=== PATIENT | male | born 1950 | race Caucasian/White ===

== ENCOUNTER → 2017-03-26 | Outpatient (CLI) | payer OTHER, MEDICARE ==
[~2017-03-26] MED LIST: AMPH20TA2 PO; CHOL1CAP57 PO; CLC100X PO; DILT40TA2 PO; FENOFIBRATE PO; GLUC10007 PO; HYDR25TA4 PO; LEVO-217 PO; LISI40TA PO; LURA1TAB PO; OMEG10007 PO; OXYC1TAB3 PO; POLY335019 PO; [UNRECOGNIZED DRUG - CODE] PO
== END | disposition home or self-care (01) ==
LOC: C.RDSM 15:26
PROVIDERS: ATTEND Orthopaedic Surgery
DX: M75.101 Unspecified rotator cuff tear or rupture of right shoulder, not specified as traumatic (principal)

== ENCOUNTER → 2017-04-02 | Outpatient (CLI) | payer OTHER, MEDICARE ==
--- NOTE | 2017-04-02 11:15 | DIAGNOSTIC IMAGING REPORT ---
R UPPER EXT JOINT WITHOUT CLINICAL HISTORY: ROTATOR CUFF TEAR TECHNIQUE: Multi axial acquisition COMPARISON STUDY: None FINDINGS: Considerable degenerative changes throughout. Moderate edematous change of the subscapularis muscle and tendinous complex. Small associated hematoma. Moderate tendinopathy. Infraspinatus tendinopathy. Probable partial tear infraspinatus tendon. Full-thickness tear supraspinatus tendon with musculotendinous retraction of 2.7 cm. Degenerative change] potential partial chronic separation of the acromioclavicular joint. Significant degenerative change of the articular services the glenohumeral joint. Moderate degenerative substance change with service maceration of the glenoid labrum. Small joint effusion. IMPRESSION: 1. Full-thickness tear supraspinatus tendon with musculotendinous retraction at 2.7 cm. 2. Tendinopathy of the infraspinatus and subscapularis tendons with evidence for moderate muscular edema at both sites. 3. Partial thickness tear superior margin infraspinatus tendon. 4. Mild soft tissue edema of the biceps tendon although that structure is grossly intact. 5. Generalized degenerative change articular services of the glenohumeral joint 6. Grade 1 chronic separation right acromioclavicular joint. The above report was generated using voice recognition software. It may contain grammatical, syntax or spelling errors. Electronically signed by: Anshu Mojica M.D. 04/02/2017 11:13 AM Dictated Date/Time: 04/02/2017 11:05 AM
== END | disposition home or self-care (01) ==
LOC: C.MRI 09:50
PROVIDERS: ATTEND Orthopaedic Surgery
DX: M75.101 Unspecified rotator cuff tear or rupture of right shoulder, not specified as traumatic (principal); S43.101A Unspecified dislocation of right acromioclavicular joint, initial encounter; X58.XXXA Exposure to other specified factors, initial encounter; M25.811 Other specified joint disorders, right shoulder

== ENCOUNTER 2017-06-16 19:41 | Emergency (ER) | payer OTHER, MEDICARE ==
[~2017-06-16] VITALS: Ht 180.3 cm; Wt 95.6 kg
[~2017-06-16 19:41] MED LIST changes: +B-COTAB18 PO; -CHOL1CAP57 PO; -CLC100X PO; +CLZ100 PO; +DILT360C24 PO; -DILT40TA2 PO; -FENOFIBRATE PO; -GLUC10007 PO; -HYDR25TA4 PO; -LEVO-217 PO; +LEVO75TA5 PO; +LORA-741 PO; -LURA1TAB PO; +LURA1TAB3 PO; +MOML PO; +MULT-506 PO; -OMEG10007 PO; -OXYC1TAB3 PO; -[UNRECOGNIZED DRUG - CODE] PO
[2017-06-16 19:45] VITALS: TEMP 36.8; Ht 180.3 cm; Wt 95.6 kg
--- NOTE | 2017-06-16 20:34 | EMERGENCY ROOM VISIT NOTE ---
History Report prepared by Norma: Usha Yanez Under the Supervision of: Dr. Romero Guillen D.O. First contact with patient: 20:00 Chief Complaint: GI ASSESSMENT Stated Complaint: BLACK STOOL AFTER COLONOSCOPY Nursing Triage Summary: Patient reports recent colonoscopy, told to come to ER if black stool. Patient reports black stool. History of Present Illness The patient is a 67 year old male who presents to the Emergency Room with complaints of persistent black stools starting earlier today. The patient had a colonoscopy 6 hours ago. He had a polyp removed. He had a bowel movement after returning home which appeared black. He states the stool did not smell like a normal bowel movement and smells more "medicinal". He was warned to watch for black stools. He feels fatigued from being up all night preparing for the colonoscopy. He is feeling well otherwise. Source of History: patient Onset: earlier today Position: other (global) Quality: other (black stools) Timing: other (persistent) Associated Symptoms: + fatigue Review of Systems See HPI for pertinent positives & negatives. A total of 10 systems reviewed and were otherwise negative. Past Medical & Surgical Medical Problems: (1) Anemia (2) Benign hypertension (3) Depression (4) Manic-Depressive Nos (5) Schizoaffective Disorder, Unspecified Family History Cancer Social History Smoking Status: Former Smoker Alcohol Use: none Marital Status: Housing Status: lives with family Occupation Status: unemployed Current/Historical Medications Scheduled Amphetamine-Dextroamphetamine 20MG (Adderall 20MG), 20 MG PO QAM B-Complex Vitamins (Vitamin B Complex), 1 TAB PO DAILY Clozapine (Clozapine), 0.5 TAB PO HS Diltiazem Hcl Extended Release (Diltiazem Hcl), 1 CAP PO QAM Levothyroxine Sodium (Levothyroxine Sodium), 1 TAB PO QAM Lisinopril (Zestril), 40 MG PO QAM Lurasidone Hcl (Latuda), 1 TAB PO HS Multivitamin (Multivitamin), 1 TAB PO DAILY Polyethylene Glycol 3350 (Miralax), 1 DOSE PO BID Scheduled PRN Lorazepam (Ativan), 0.5-1 MG PO HS PRN for Sleep Magnesium Hydroxide (Milk Of Magnesia), 30 ML PO HS PRN for Constipation Allergies Coded Allergies: Penicillins (Verified Allergy, Unknown, UNKNOWN REACTION - HAPPENED A CHILD, 06/16/17) Physical Exam Vital Signs Date Time Temp Pulse Resp B/P (MAP) Pulse Ox O2 Delivery O2 Flow Rate FiO2 06/16/17 20:39 89 16 168/96 97 06/16/17 19:45 36.8 90 16 177/102 96 Room Air Physical Exam CONSTITUTIONAL/VITAL SIGNS: Reviewed / noted above. GENERAL: Non-toxic in appearance. INTEGUMENTARY: Warm, dry, and [place]. HEAD: Normocephalic. EYES: without scleral icterus or trauma. ENT/OROPHARYNX: clear and moist. LYMPHADENOPATHY/NECK: Is supple without lymphadenopathy or meningismus. RESPIRATORY: Lungs clear and equal. CARDIOVASCULAR: Regular rate and rhythm. GI/ABDOMEN: Soft and nontender. No organomegaly or pulsatile mass. No rebound or guarding. Normal bowel sounds. Stool sample was dark brown and guaiac positive. EXTREMITIES: Warm and well perfused. BACK: No CVA tenderness. NEUROLOGICAL: Intact without focal deficits. PSYCHIATRIC: normal affect. MUSCULOSKELETAL: Normally developed with good muscle tone. Medical Decision & Procedures ED Course 2008: Previous medical records were reviewed. The patient was evaluated in room C7. A complete history and physical examination was performed. 2035: On reevaluation, the patient is resting comfortably. I discussed the results and findings with the patient. He verbalized agreement of the treatment plan. He was discharged home. Medical Decision Differential diagnosis: Etiologies such as diverticulosis, AVM, coagulopathy, colitis, inflammatory bowel disease, malignancy, Sheila-Malik tear, esophagitis, peptic ulcer disease , variceal bleed, gastritis, epistaxis, fissure, hemorrhoids, as well as others were entertained. This is a 67-year-old male who presents to the ED with a chief complaint of some dark liquid like stools. The patient had a colonoscopy earlier today around 2 PM. He states that tonight he had some black looking liquid like stools and came to the ED for evaluation of this. He was concerned about bleeding. The patient denies any other symptoms. Denies lightheadedness, dizziness or weakness. His physical exam was unremarkable. He didn't have some liquid stool during his ED stay. It was a small amount and it was dark brown in color. It is guaiac positive. The patient does report that he did have several polyps removed during his colonoscopy. This is likely the cause of his guaiac positive status. There is no gross blood on exam and therefore it is unlikely that he has any significant bleeding. The patient's blood work revealed a near normal hemoglobin. He is felt to be stable for discharge. Medication Reconcilliation Current Medication List: was personally reviewed by me Blood Pressure Screening Patient's blood pressure: Elevated blood pressure Blood pressure disposition: Referred to PCP Impression Primary Impression: Guaiac positive stools Additional Impression: H/O colonoscopy with polypectomy Scribe Attestation The scribe's documentation has been prepared under my direction and personally reviewed by me in its entirety. I confirm that the note above accurately reflects all work, treatment, procedures, and medical decision making performed by me. Departure Information Dispostion Home / Self-Care Referrals Sung Gilbert M.D. (PCP) Patient Instructions My [facility] Additional Instructions Contact your doctor if your symptoms worsen. Contact your doctor if you develop red blood upon bowel movement. Return for any concerns. Problem Qualifiers
[2017-06-16 20:39] VITALS: BP 168/96; PULSE 89; O2SAT 97
== END 2017-06-16 20:41 | disposition home or self-care (01) ==
LOC: C.EDB 19:43 → C.EDC 20:41
DX: R19.5 Other fecal abnormalities (principal); Z86.010 Personal history of colon polyps; I10 Essential (primary) hypertension; F32.9 Major depressive disorder, single episode, unspecified; F20.9 Schizophrenia, unspecified; D64.9 Anemia, unspecified; Z87.891 Personal history of nicotine dependence; Z79.899 Other long term (current) drug therapy; Z88.0 Allergy status to penicillin; Z80.9 Family history of malignant neoplasm, unspecified

== ENCOUNTER → 2017-06-28 | Day surgery (SDC) | payer OTHER, MEDICARE ==
[2017-06-08 09:28] VITALS: Ht 180.3 cm; Wt 90.9 kg
[~2017-06-28] VITALS: Ht 180.3 cm; Wt 90.9 kg
[~2017-06-28] MED LIST changes: +ATROPINE SULFATE 0.1 MG/ML 5ML SYR IV PRN; +CLINDAMYCIN 900MG IV SCH; +CLINDAMYCIN IV 900 MG in DEXTROSE 5% 50ML IV SCH; +DEXAMETHASONE SOD INJ 4 MG/ML VIAL ONE; +EpHEDrine SULFATE INJ 50 MG/ML AMP IV PRN; +EpINEphrine HCL INJ 1 MG/ML 5ML SYRINGE ONE; +FENTANYL CITRATE INJ 50 MCG/1 ML 2 ML VIAL IV PRN; +FENTANYL CITRATE INJ 50 MCG/1 ML 2 ML VIAL ONE; +GLYCOPYRROLATE INJ 0.2 MG/ML VIAL ONE; +LACTATED RINGER'S 1000ML 1,000 ML IV SCH; +LIDOCAINE HCL 2% 2 ML VIAL (20MG/ML) ONE; +METOCLOPRAMIDE HCL INJ 5 MG/ML 2 ML VIAL IV PRN; +MIDAZOLAM HCL 1 MG/ML 2ML VIAL ONE; +MoRPHine SULFATE 2 MG/ML CARP IV PRN; +MoRPHine SULFATE 4 MG/ML 1 ML CARP\\VIAL IV PRN; +NEOSTIGMINE METHYLSULFATE 5 MG/5 ML SYR ONE; +ONDANSETRON INJ 2 MG/ML 2 ML VIAL IV PRN; +ONDANSETRON INJ 2 MG/ML 2 ML VIAL ONE; +OXYCODONE/ACETAMINOPHEN 5-325 TAB PO PRN; +PROPOFOL IV EMULSION 10 MG/ML 20 ML VIAL IV ONE; +ROPIVACAINE 0.5% 5 MG/ML 30 ML VIAL ONE; +SODIUM CHLORIDE 0.9% 1000ML 1,000 ML IV SCH
--- NOTE | 2017-06-28 09:32 | History & Physical Bridge - [place] ---
H&P Re-Evaluation Bridge Note: I have examined the patient, reviewed the History & Physical and in the interval since the performance of the History & Physical I have noted the following changes of clinical significance: Patient placed on antibiotics 1 week ago for tooth abscess. Not experiencing any fevers/chills/malaise in the past several days. No other changes noted
--- NOTE | 2017-06-28 12:59 | [facility] Post Operative Brief Note ---
Immediate Operative Summary Operative Date Jun 28, 2017. Pre-Operative Diagnosis Right Shoulder Massive Rotator Cuff Tear, subacromial spur Post-Operative Diagnosis same and glenohumeral joint synovitis, biceps tendon tear Procedure(s) Performed Right Shoulder Arthoscopic Rotator Cuff Repair, Biceps Tenotomy, Sub Acromial Decompression, Synovectomy Surgeon Dr. Sagar Taylor Insurance Verify Rep Surgeon(s) Jose Real PA-C Estimated Blood Loss 25CC Findings Consistent with Post-Op Diagnosis Fluids (cc crystalloids) 1500 cc Specimens none Drains None Anesthesia Type General Regional Complication(s) none Disposition Accompanied Pt To Recover: no Disposition: Recovery Room / PACU
--- NOTE | 2017-06-28 13:17 | [facility] Operative Report ---
Operative Report Operative Date Jun 28, 2017. Pre-Operative Diagnosis Right Shoulder Massive Rotator Cuff Tear, subacromial spur Post-Operative Diagnosis same and glenohumeral joint synovitis, biceps tendon tear Procedure(s) Performed Right Shoulder Arthoscopic Rotator Cuff Repair, Biceps Tenotomy, Sub Acromial Decompression, Synovectomy Surgeon Dr. Sagar Taylor Director Of Vocational Guidance Surgeon(s) Jose Real PA-C Estimated Blood Loss 25CC Findings significant right rotator cuff tear Fluids (cc crystalloids) 1500 cc Specimens none Complication(s) None Disposition Recovery Room / PACU I attest to the content of the Intraoperative Record and any orders documented therein. Any exceptions are noted below.
--- NOTE | 2017-06-28 13:24 | Discharge Instructions ---
Discharge Instructions Date of Service Jun 28, 2017. Admission Reason for Admission: Right Shoulder Massive Rotator Cuff Tear Discharge Discharge Diagnosis / Problem: Right shoulder massive rotator cuff tear Discharge Goals Goal(s): Decrease discomfort, Improve function, Increase independence Activity Recommendations Activity Limitations: as noted below Lifting Limitations: until after follow-up appointment Exercise/Sports Limitations: until after follow-up appointment May Resume Sexual Activity: after follow-up appointment Shower/Bathe: tomorrow, keep incision dry Driving or Machine Use: No driving until cleared by orthopedic surgeon Weightbearing Status: Right non-weightbearing (with Right arm) . Instructions / Follow-Up Instructions / Follow-Up Post-operative Instructions Dear Patient and Family/Friends, Before you are discharged from the hospital, it is important to know what to expect when you get home after surgery. To that end, we have created this sheet of discharge instructions which covers many commonly asked questions. Make sure you go through this sheet in its entirety with your nurse before you are discharged. Please note that we will go over the specifics of your surgery and recovery when you return for your first post-operative visit. Sincerely, Dr. Butler Pain Expect to be in a fair amount of pain after surgery. Remember, our goal is not to eliminate your pain, but to make it tolerable. It is a good idea to stay ahead of your pain by taking the medications you were prescribed once you get home. Typically, the pain starts improving 3-7 days after surgery. You should start weaning off the narcotic pain medication (oxycodone, hydrocodone, hydromorphone, morphine) as soon as your pain improves. Please call our office if your pain is not adequately controlled. Ice Ice your operative site at least 5 times a day for 15-30 minutes at a time. Make sure you have a thin cloth between the ice or cooling unit and your skin to prevent esposito bite. This is especially important if you received a nerve block. Continue icing your operative site for the first 5-7 days after surgery , then as needed. Diet/Nausea/Vomiting Start by drinking clear liquids and eating crackers. If you can tolerate this, then you may resume your normal diet. If you feel nauseated or vomit, take Zofran/ondansetron (if prescribed). Please call our office if you have intractable nausea or vomiting, or, if after hours, you may go to the Emergency Room for help. Constipation Constipation is a common side effect of narcotic pain medication. If you have not had a bowel movement within 2 days after surgery, we recommend purchasing an over the counter laxative such as Milk of Magnesia, Dulcolax, or Miralax from a local pharmacy, and taking it as instructed. Call our clinic if any questions. Slings and Braces If you were placed in a sling or brace, it must be worn at all times, including sleep. You may remove your sling or brace for physical therapy, home exercises , and showering. The length of time you will be in your brace and range of motion restrictions depends on what surgery you had; these details will be reviewed at your first post-operative appointment. Nerve block The anesthesia team sometimes places a nerve block to help with post-operative pain control. This results in significant numbness and inability to move the extremity. The nerve block usually wears off in 8-12 hours, but sometimes can last up to 24 hours. Please call our office if you are still unable to move your extremity after 24 hours, unless you received a pain pump to take home. Nerve blocks typically wear off quickly, so start taking pain medication as soon as you start feeling soreness near your surgical site. Weight bearing and Range of Motion. Do not bear any weight through your operative extremity immediately after surgery. If you had upper extremity surgery, do not lift anything with that arm. If you are in a knee brace, keep it locked in place until your follow-up. We will discuss your weight bearing, range of motion, and lifting restrictions in detail at your first post-operative appointment. Continuous Passive Motion (CPM) Machine If you were prescribed a CPM machine, it will start after your first post- operative appointment, at which time we will give you instructions on the range of motion settings and duration of treatment Physical therapy You will be given a prescription for physical therapy or occupational therapy at your first post-operative appointment. Typically, patients start therapy within 1 week of surgery Wound care and showering We will inspect your wound at your first post-operative visit, and may do a dressing change at that time. Most patients will be in a water-proof dressing that is removed 14 days after surgery. It is normal to see some dried blood on the dressing. Do not remove your dressing, paper strips or sutures yourself unless you are given permission. Showering is allowed the day after surgery. Do not scrub or remove any dressings. The wound should not be submerged underwater (i.e. in a bathtub or pool) until 4 weeks after surgery TATE stockings If you were given white stockings, these are to be worn at all times except to shower (on both legs) for the first 2 weeks after surgery. Driving You may not drive while taking narcotic pain medication or while in a cast, splint, sling or brace. You, the patient, need to make the final determination about when you are safe to drive, however, the earliest you may consider driving after surgery is below: Hand/Wrist/Elbow Surgery: 3 days Shoulder Surgery: 2 weeks Hip,/Knee/Ankle Surgery: 4 weeks Fracture repair: 6 weeks Return to Work Your return to work depends on what surgery was done and what type of work you do. Please bring any paperwork your employer needs completed to your first post -operative visit. Also, bring a description of your job duties, as this helps us to understand what risks you may face at work. Travel Avoid long distance travel (greater than 1 hour) in airplanes and cars for the first 6 weeks after surgery. If you must travel, you need to have a Doppler ultrasound done before you travel to rule out a blood clot in your legs. Follow-up You should have a follow-up appointment already scheduled 1-2 days after surgery. If not, please contact our office to make this appointment before you leave the hospital. When to call the office It is normal to have swelling and bruising in the limb that was operated on. This will improve with time. It is also normal to have fevers for the first 2 days after surgery. Reasons you should call your doctor include: Uncontrolled pain; Nausea, vomiting, or constipation that does not improve with medication; Fevers over 101.5, chills, sweats; Drainage or bleeding from the wound; Foul odor; Spreading areas of redness; Any other concerns Current Hospital Diet Patient's current hospital diet: Discharge Diet Recommended Diet: Regular Diet Procedures Procedures Performed: Right Shoulder Arthoscopic Rotator Cuff Repair, Biceps Tenotomy, Sub Acromial Decompression, Synovectomy Pending Studies Studies pending at discharge: no Medical Emergencies . Who to Call and When: Medical Emergencies: If at any time you feel your situation is an emergency, please call 911 immediately. . Non-Emergent Contact Non-Emergency issues call your: Primary Care Provider Call Non-Emergent contact if: you have a fever, temperature is above 101.5, your pain is not controlled, your pain is worsening, wound has increased drainage, you have any medication questions . "Provider Documentation" section prepared by Jose Real. . VTE Core Measure Inpt VTE Proph given/why not?: Other Anticoagulation (Aspirin EC 81 mg), Pat Sidhu [place] Drug Monitoring Program Search Results: patient reviewed within database, no issues identified, see additional documentation
--- NOTE | 2017-06-28 14:01 | OPERATIVE REPORT ---
DATE OF OPERATION: 06/28/2017 PREOPERATIVE DIAGNOSES: Right shoulder massive rotator cuff tear and subacromial spur. 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 OPERATIONS PERFORMED: 1. Right shoulder arthroscopic rotator cuff repair. This involved 2 tendons and was severely retracted. So, a 22 modifier should be added for increased difficulty of the surgical procedure. 2. Right shoulder biceps tenotomy. 3. Right shoulder synovectomy. 4. Right shoulder subacromial decompression. SURGEON: Morgan Butler MD ELECTRONIC DEVELOPMENT TECHNICIAN: Jose Real PA-C IV FLUIDS: 1800 mL crystalloid. ESTIMATED BLOOD LOSS: 25 mL. URINE OUTPUT: Not recorded. SPECIMENS: None. COMPLICATIONS: None. IMPLANTS: 1. Two Arthrex corkscrew anchors, one 4.5 mm in diameter and the other one 5.5 mm. 2. Two Arthrex self-punching SwiveLock anchors. 3. One additional number 2 fiberwire and number 2 tigerwire INDICATIONS: Mr. Dobson is a 67-year-old gentleman with a medical history of bipolar disorder, who had an injury to his shoulder this summer, resulting in difficulty getting his arm over his head. He has a positive Hornblower's sign on exam with external rotation lag and minimal strength in external rotation. MRI and x-rays were obtained. He has cephalad migration of the humeral head, narrowing of his acromiohumeral interval with a massive rotator cuff tear, retracted to the level of the glenoid. Additionally, there is fatty infiltration of both the supraspinatus and infraspinatus Goutallier grade 2-3. We initially attempted conservative management with physical therapy; however, this was unsuccessful in relieving his symptoms. I told him that I was not sure, this tear was repairable and we therefore consented him for a superior capsular reconstruction versus rotator cuff repair. After reviewing all the risks and benefits of surgery, he elected to proceed. All questions were answered. Informed consent was signed. OPERATIVE FINDINGS: 1. The articular cartilage of the glenoid and humeral head showed grade 3 chondromalacia throughout. 2. The labrum showed degenerative fraying, but no tasneem detachment. 3. The biceps tendon showed a tear involving approximately 20% of its thickness. 4. The subscapularis showed some mild fraying, but no detachment. 5. The anterior interval showed intense red synovitis, which extended into the superior capsule and subacromial space as well. 6. The rotator cuff showed tears of the supraspinatus and infraspinatus in a L-shaped manner with the long part of the L extending into the interval between the infra and supraspinatus. 7. There was a large anterior subacromial spur. Synovectomy was performed of the anterior interval. A biceps tenotomy was performed. The subacromial spur was resected. The rotator cuff footprint was medialized to allow for a tension-less repair. The rotator cuff was repaired using a margin convergence sutures between the infra and supraspinatus as well as a double-row suture anchor repair. DESCRIPTION OF OPERATION: The patient was identified in the preoperative holding area, where his surgical site was marked. He was given interscalene block by anesthesia and brought back to the main operating room, where he was placed on the operating room table and general anesthesia was administered. He was moved into the lateral decubitus position. Axillary roll was placed. All bony prominences were padded. Perioperative antibiotics were administered. He was prepped and draped in the normal sterile fashion. Prior to incision, a multidisciplinary timeout was called. All in the room were in agreement. We began by suspending the arm in 10 pounds of longitudinal traction with the arm abducted 35 degrees and forward flexed 25 degrees. A posterior viewing portal was created. An anterior working portal was created under direct visualization. Diagnostic arthroscopy was then performed revealing the above findings. Once the diagnostic arthroscopy was complete, the electrocautery wand was introduced through the anterior portal and was used to debride the synovitis in the anterior aspect of the shoulder. We visualized the subscapularis tendon and deemed it to be intact. There was, however, tearing of the biceps tendon. Therefore, the basket punch was introduced through the anterior working cannula and the biceps was cut flush with the level of the superior labrum. Next, the arthroscope was placed in the subacromial space. A significant amount of bursitis was encountered, which was resected. The undersurface of the acromion was exposed with electrocautery. There was a large anteriorly and laterally based subacromial spur. This was resected with a barrel bur. The cuff was then carefully inspected. There was significant retraction of the supraspinatus, and moderate infraspinatus retraction. Manipulating the tear with a kingfisher, it was found to have a L-shaped tear with the long side of the L extending towards the scapular spine between the supra and infraspinatus. It was somewhat difficult to get it over to the footprint, but with medializing the footprint, we would be able to get the tendon attached to the bone. I felt it was in the patient's best interest to attempt a rotator cuff repair as opposed to a superior capsular reconstruction. Therefore, the rotator cuff footprint was debrided with a curette and shaver. Two margin convergence sutures were placed using one #2 FiberWire and one #2 TigerWire respectively. Once these were tied, a 4.5 corkscrew was placed on the anterior-medial aspect of the footprint. These were passed in a horizontal mattress fashion through the supraspinatus tendon. We then placed a 5.5 anchor on the posterior medial aspect of the footprint. This was also a double-loaded anchor. The first set of sutures was passed, one on each side of the supra and the infraspinatus. The second set was placed posteriorly into the infraspinatus. The sutures were then tied down from posterior to anteriorly. The sutures were then crisscrossed with a Tigerwire and Fiberwire from each anchor and placed into two self-punching SwiveLock anchors laterally to complete our double row repair. We were able to get good coverage of the footprint in this manner. At this point, final arthroscopic images were obtained. The patient's portals were closed with inverted 3-0 Monocryl sutures. Steri-Strips were applied followed by sterile dressings. The patient was then extubated and transferred to the recovery room in stable condition. POSTOPERATIVE COURSE: The patient will be discharged home from the recovery room. He will follow up in my clinic tomorrow to review his postoperative restrictions and start physical therapy on the massive rotator cuff repair protocol. He will be on aspirin for DVT prophylaxis. I attest to the content of the Intraoperative Record and any orders documented therein. Any exceptions are noted below. CARMEN
[2017-06-28 14:32] VITALS: BP 125/72; PULSE 71; O2SAT 95
--- NOTE | 2017-06-28 14:40 | Anesthesia Progress Nt - [facility] ---
Anesthesia Post Op Note Date & Time Jun 28, 2017 at 14:40 Vital Signs Pain Intensity: 0 Vital Signs Past 12 Hours Date Time Temp Pulse Resp B/P (MAP) Pulse Ox O2 Delivery O2 Flow Rate FiO2 06/28/17 14:32 71 18 125/72 (89) 95 Room Air 06/28/17 13:54 36.2 67 18 113/69 (84) 95 Room Air 06/28/17 13:51 67 16 98 06/28/17 13:51 68 16 06/28/17 13:50 111/59 06/28/17 13:46 69 28 06/28/17 13:46 69 28 95 06/28/17 13:45 115/72 06/28/17 13:41 70 25 06/28/17 13:41 36.4 96 Room Air 06/28/17 13:41 70 25 97 06/28/17 13:40 110/65 06/28/17 13:36 70 24 98 06/28/17 13:36 70 24 06/28/17 13:35 115/61 06/28/17 13:33 73 21 06/28/17 13:33 74 21 97 06/28/17 13:30 114/66 06/28/17 13:28 78 14 06/28/17 13:28 77 14 98 06/28/17 13:27 76 20 06/28/17 13:27 76 20 96 06/28/17 13:25 116/65 06/28/17 13:22 83 13 99 06/28/17 13:22 83 13 06/28/17 13:20 122/62 06/28/17 13:18 137/78 06/28/17 13:17 36.2 91 16 137/78 98 Mask 10 06/28/17 10:01 72 100 06/28/17 10:01 72 06/28/17 10:00 150/91 06/28/17 09:56 70 12 100 06/28/17 09:56 70 06/28/17 09:55 139/89 06/28/17 09:52 74 18 100 06/28/17 09:52 74 06/28/17 09:50 155/101 06/28/17 09:48 160/98 06/28/17 09:47 75 100 06/28/17 09:47 75 06/28/17 09:45 159/122 1/29/18 09:42 77 16 169/108 100 06/28/17 09:42 70 06/28/17 09:27 74 06/28/17 09:22 65 06/28/17 09:17 77 06/28/17 09:12 75 0 06/28/17 09:07 73 06/28/17 09:02 72 06/28/17 08:57 72 06/28/17 08:52 77 06/28/17 08:25 36.5 81 18 160/105 (123) 99 Room Air 06/28/17 08:23 160/105 Notes Mental Status: alert / awake / arousable, participated in evaluation Pt Amnestic to Procedure: Yes Nausea / Vomiting: adequately controlled Pain: adequately controlled Airway Patency, RR, SpO2: stable & adequate BP & HR: stable & adequate Hydration State: stable & adequate Anesthetic Complications: no major complications apparent
== END | disposition home or self-care (01) ==
LOC: X.SURG 08:13
PROVIDERS: ATTEND Orthopaedic Surgery
DX: S46.011A Strain of muscle(s) and tendon(s) of the rotator cuff of right shoulder, initial encounter (principal); S46.211A Strain of muscle, fascia and tendon of other parts of biceps, right arm, initial encounter; M75.91 Shoulder lesion, unspecified, right shoulder; M94.28 Chondromalacia, other site; M65.811 Other synovitis and tenosynovitis, right shoulder; X58.XXXA Exposure to other specified factors, initial encounter; J44.9 Chronic obstructive pulmonary disease, unspecified; E03.9 Hypothyroidism, unspecified; I10 Essential (primary) hypertension; E78.5 Hyperlipidemia, unspecified; F41.9 Anxiety disorder, unspecified; Z88.0 Allergy status to penicillin; Z98.890 Other specified postprocedural states; Z98.818 Other dental procedure status; Z87.891 Personal history of nicotine dependence; Z79.899 Other long term (current) drug therapy

== ENCOUNTER 2017-07-10 12:51 | Emergency (ER) | payer OTHER, MEDICARE ==
[~2017-07-10] VITALS: Ht 180.3 cm; Wt 92.2 kg
[~2017-07-10 12:51] MED LIST changes: -ATROPINE SULFATE 0.1 MG/ML 5ML SYR IV PRN; -CLINDAMYCIN 900MG IV SCH; -CLINDAMYCIN IV 900 MG in DEXTROSE 5% 50ML IV SCH; -DEXAMETHASONE SOD INJ 4 MG/ML VIAL ONE; -EpHEDrine SULFATE INJ 50 MG/ML AMP IV PRN; -EpINEphrine HCL INJ 1 MG/ML 5ML SYRINGE ONE; -FENTANYL CITRATE INJ 50 MCG/1 ML 2 ML VIAL IV PRN; -FENTANYL CITRATE INJ 50 MCG/1 ML 2 ML VIAL ONE; -GLYCOPYRROLATE INJ 0.2 MG/ML VIAL ONE; -LACTATED RINGER'S 1000ML 1,000 ML IV SCH; -LIDOCAINE HCL 2% 2 ML VIAL (20MG/ML) ONE; -METOCLOPRAMIDE HCL INJ 5 MG/ML 2 ML VIAL IV PRN; -MIDAZOLAM HCL 1 MG/ML 2ML VIAL ONE; -MoRPHine SULFATE 2 MG/ML CARP IV PRN; -MoRPHine SULFATE 4 MG/ML 1 ML CARP\\VIAL IV PRN; -NEOSTIGMINE METHYLSULFATE 5 MG/5 ML SYR ONE; -ONDANSETRON INJ 2 MG/ML 2 ML VIAL IV PRN; -ONDANSETRON INJ 2 MG/ML 2 ML VIAL ONE; -OXYCODONE/ACETAMINOPHEN 5-325 TAB PO PRN; -PROPOFOL IV EMULSION 10 MG/ML 20 ML VIAL IV ONE; -ROPIVACAINE 0.5% 5 MG/ML 30 ML VIAL ONE; -SODIUM CHLORIDE 0.9% 1000ML 1,000 ML IV SCH
[2017-07-10 12:59] VITALS: TEMP 36.6; Ht 180.3 cm; Wt 92.2 kg
--- NOTE | 2017-07-10 14:11 | DIAGNOSTIC IMAGING REPORT ---
L KNEE 3 VIEWS CLINICAL HISTORY: 67 years-old Male presenting with left knee pain, fall. TECHNIQUE: Frontal, lateral, and sunrise views of the left knee were obtained. COMPARISON: None. FINDINGS: No acute fracture or malalignment. Osteophytosis most prominent in the patellofemoral and lateral compartments. Chondrocalcinosis may be present. Joint space is largely preserved. Moderate knee joint effusion. Significant prepatellar soft tissue swelling. Lateral facet joint space loss at the patella. Minimal lateral patellar subluxation. IMPRESSION: 1. Degenerative changes characteristic of osteoarthritis primarily in the patellofemoral and lateral compartments. Significant joint space loss in the lateral facet of the patellofemoral articulation. 2. No acute osseous injury. 3. Marked prepatellar soft tissue swelling likely indicates contusion. 4. Moderate knee joint effusion. Electronically signed by: Morgan Cormier M.D. 07/10/2017 2:09 PM Dictated Date/Time: 07/10/2017 2:07 PM
--- NOTE | 2017-07-10 14:24 | EMERGENCY ROOM VISIT NOTE ---
History First contact with patient: 13:06 Chief Complaint: FALL Stated Complaint: INJURED R KNEE/SHOULDER History of Present Illness The patient is a 67 year old male who presents to the Emergency Room with complaints of a left knee injury after a fall. The patient reports that he had his right rotator cuff repaired recently. He states that he has been frustrated because he is having difficulty doing his exercises. He took a walk outside last night to help calm himself down. He states that he was unable to tie his shoes due to the shoulder brace. He tripped and fell off his snow- covered stairs, landing directly onto his left knee. He did not hit his head or the right shoulder. He does report that when he was doing his shoulder exercises today, his shoulder felt slightly more stiff than usual. He denies any new numbness or weakness. He does have some loss of sensation tingling in bilateral lower extremities due to neuropathy. He rates his discomfort a 2/10 and states that he has been walking around normally. Review of Systems A complete 6 point review of systems was reviewed with the patient with pertinent positives and negatives as per history of present illness. All else were negative. Past Medical/Surgical History Medical Problems: (1) Anemia (2) Benign hypertension (3) Depression (4) Manic-Depressive Nos (5) Schizoaffective Disorder, Unspecified Family History Cancer Social History Smoking Status: Never Smoker Alcohol Use: none Marital Status: Housing Status: lives with family Occupation Status: unemployed Current/Historical Medications Scheduled Amphetamine-Dextroamphetamine 20MG (Adderall 20MG), 20 MG PO QAM B-Complex Vitamins (Vitamin B Complex), 1 TAB PO DAILY Clozapine (Clozapine), 0.5 TAB PO HS Diltiazem Hcl Extended Release (Diltiazem Hcl), 1 CAP PO QAM Levothyroxine Sodium (Levothyroxine Sodium), 1 TAB PO QAM Lisinopril (Zestril), 40 MG PO QAM Lurasidone Hcl (Latuda), 1 TAB PO HS Multivitamin (Multivitamin), 1 TAB PO DAILY Polyethylene Glycol 3350 (Miralax), 17 GM PO BID Scheduled PRN Lorazepam (Ativan), 0.5-1 MG PO HS PRN for Sleep Magnesium Hydroxide (Milk Of Magnesia), 30 ML PO HS PRN for Constipation Physical Exam Vital Signs Date Time Temp Pulse Resp B/P (MAP) Pulse Ox O2 Delivery O2 Flow Rate FiO2 07/10/17 14:44 77 20 146/89 100 07/10/17 12:59 36.6 91 20 151/107 99 Room Air Physical Exam VITALS: Vitals are noted on the nurse's note and reviewed by myself. Vital signs stable. GENERAL: This is a 67-year-old male, in no acute distress, nondiaphoretic, well- developed well-nourished. SKIN: There are 3 small, well-healing surgical incisions to the anterior right shoulder consistent with recent laparoscopic surgery. HEART: Regular rate and rhythm without murmurs gallops or rubs. LUNGS: Clear to auscultation bilaterally without wheezes, rales or rhonchi. MUSCULOSKELETAL: There is moderate soft tissue swelling overlying the left anterior knee with mild ecchymosis. There is tenderness to palpation over the anterior knee. Full range of motion of the knee. Dorsalis pedis pulse 2+. NEURO: Patient was alert and oriented to person place and time. Normal sensation. Medical Decision & Procedures ER Provider Diagnostic Interpretation: L KNEE 3 VIEWS FINDINGS: No acute fracture or malalignment. Osteophytosis most prominent in the patellofemoral and lateral compartments. Chondrocalcinosis may be present. Joint space is largely preserved. Moderate knee joint effusion. Significant prepatellar soft tissue swelling. Lateral facet joint space loss at the patella. Minimal lateral patellar subluxation. IMPRESSION: 1. Degenerative changes characteristic of osteoarthritis primarily in the patellofemoral and lateral compartments. Significant joint space loss in the lateral facet of the patellofemoral articulation. 2. No acute osseous injury. 3. Marked prepatellar soft tissue swelling likely indicates contusion. 4. Moderate knee joint effusion. Medical Decision Differential diagnosis includes fracture, contusion, dislocation, sprain, among others. The patient was evaluated as above. X-ray of the left knee was obtained and reviewed by myself and read by radiology and showed no acute fractures. Patient was placed in an Rashel wrap. He declined any crutches or walker. The right shoulder appears to be healing well. He does report some slight stiffness in the shoulder, but was advised to follow-up with his orthopedist regarding this. He verbalized understanding of my assessment and treatment plan and was discharged home in good condition. The patient was independently evaluated by Dr. Monreal, ED attending physician, who agreed with my assessment and treatment plan. Medication Reconcilliation Current Medication List: was personally reviewed by me Blood Pressure Screening Patient's blood pressure: Elevated blood pressure Blood pressure disposition: Elevated BP felt to be situational Impression Primary Impression: Contusion of left knee Departure Information Dispostion Home / Self-Care Condition GOOD Referrals Sung Gilbert M.D. (PCP) Patient Instructions My [facility] Additional Instructions You have been treated in the Emergency Department for a knee injury. For pain control, you can use the following [id number] medicines (if >12 yo): - Regular strength (325mg/tab) Tylenol (acetaminophen) 2 tabs every 4-6 hours as needed. Do not exceed 12 tablets in a 24 hour period. Avoid taking more than 4 grams (4000 mg) of Tylenol per day. This includes any other sources of acetaminophen you may take on a regular basis. - Regular strength (200 mg/tab) Advil (ibuprofen) 1-2 tabs every 4-6 hours as needed. Do not exceed a dose of 3200 mg per day. If this is a recent injury (<24 hrs), ice can be applied to the area of pain for the first 3 days to help decrease pain and inflammation. Ice massages can be performed by freezing water in a paper cup, peeling back the cup to expose the ice and then massaging over the affected area. Elevate the need to reduce swelling. Follow-up with your established orthopedic physician. Return to the Emergency Department if your current symptoms worsen despite treatment course outlined above. Problem Qualifiers Primary Impression: Contusion of left knee Encounter type: initial encounter Qualified Codes: S80.02XA - Contusion of left knee, initial encounter
[2017-07-10 14:44] VITALS: BP 146/89; PULSE 77; O2SAT 100
--- NOTE | 2017-07-10 15:38 | EMERGENCY ROOM VISIT NOTE ---
ED Visit Note First contact with patient: 13:26 The patient was seen and examined with Megan. I agree with the history, physical and findings. Please see the note for disposition and details.
== END 2017-07-10 14:44 | disposition home or self-care (01) ==
LOC: C.EDB 12:54 → C.EDD 14:44
DX: S80.02XA Contusion of left knee, initial encounter (principal); W10.9XXA Fall (on) (from) unspecified stairs and steps, initial encounter; Y92.018 Other place in single-family (private) house as the place of occurrence of the external cause; D64.9 Anemia, unspecified; I10 Essential (primary) hypertension; F32.9 Major depressive disorder, single episode, unspecified; F25.9 Schizoaffective disorder, unspecified; Z80.9 Family history of malignant neoplasm, unspecified; Z79.899 Other long term (current) drug therapy

== ENCOUNTER → 2017-08-11 | Outpatient (CLI) | payer OTHER, MEDICARE | END | disposition home or self-care (01) | LOC: C.RDSM 10:55 | PROVIDERS: ATTEND Orthopaedic Surgery | DX: Z98.890 Other specified postprocedural states (principal) ==

== ENCOUNTER → 2017-09-24 | Outpatient (CLI) | payer OTHER, MEDICARE | END | disposition home or self-care (01) | LOC: C.LABSPEC 16:44 | PROVIDERS: ATTEND Podiatrist Primary Podiatric Medicine | DX: B35.1 Tinea unguium (principal) ==

== ENCOUNTER → 2017-10-12 | Outpatient (CLI) | payer OTHER, MEDICARE | END | disposition home or self-care (01) | LOC: C.RDSM 09:10 | PROVIDERS: ATTEND Orthopaedic Surgery | DX: M25.511 Pain in right shoulder (principal); Z98.890 Other specified postprocedural states ==

== ENCOUNTER 2019-01-31 05:43 | Inpatient (IN) ==
--- NOTE | 2019-01-25 16:34 | PAT Medication Instructions ---
Medication Instructions Date of Service January 25, 2019 Home Medications aspirin 81 mg PO QAM clozapine 25 mg PO HS clozapine 50 mg PO HS diltiazem HCl 360 mg PO QAM ibuprofen 400 mg PO TID levothyroxine 75 mcg PO QAM lisinopril 20 mg PO QAM lorazepam 1 mg PO TID PRN lurasidone [Latuda] 80 mg PO HS multivitamin 1 tab PO QAM polyethylene glycol 3350 34 g PO BID vitamin B complex 1 tab PO QAM glucos sul [id number] [Glucosamine Chondroitin] 550 cap PO BID ASK your surgeon for instructions ibuprofen 400 mg PO TID ASK your prescriber and surgeon aspirin 81 mg PO QAM ibuprofen 400 mg PO TID STOP taking 2 weeks before surgery (or as soon as possible if surgery is within 2 weeks) glucos sul [id number] [Glucosamine Chondroitin] 550 cap PO BID DO NOT take the morning of surgery lisinopril 20 mg PO QAM multivitamin 1 tab PO QAM polyethylene glycol 3350 34 g PO BID vitamin B complex 1 tab PO QAM Take morning of surgery With a small sip of water, OTHERWISE NOTHING TO EAT OR DRINK AFTER MIDNIGHT: diltiazem HCl 360 mg PO QAM levothyroxine 75 mcg PO QAM lorazepam 1 mg PO TID PRN (if needed) Take evening before surgery clozapine 25 mg PO HS clozapine 50 mg PO HS lorazepam 1 mg PO TID PRN (if needed) lurasidone [Latuda] 80 mg PO HS polyethylene glycol 3350 34 g PO BID Other Notes If you have any questions please call us at [phone] or [phone] or [phone] or [phone]
--- NOTE | 2019-01-26 10:22 | Anesthesiology Consultation ---
Date of Service January 26, 2019 Assessment & Plan (1) Encounter for pre-operative examination: ASA instructions per surgeon/prescriber. Chart Review Chart Review: Acceptable Risk for Surgery (pending surgeon-ordered PCP clearance (Dr. Terry)) and Patient seen in Pre Admission Testing Teaching & Discussion Pre-Anesthesia Teaching/Discussion Notes: Instructed NPO after midnight before surgery,except medications with 15 cc of water. Medication instructions provided according to the PAT guidelines. History Surgery Operation Date: 01/31/19 07:30 Proposed Procedures p Left Laparoscopic Hand-Assisted Nephrectomy - Freeman Sampson MD Height/Weight Height: 5 ft 11 in Weight: 80 kg Allergies Allergy/AdvReac Type Severity Reaction Status Date / Time Penicillins Allergy Unknown UNKNOWN Verified 01/25/19 15:28 REACTION - HAPPENED A CHILD Medications Home Medications Medication Instructions Recorded Confirmed Last Taken aspirin 81 mg PO QAM 12/17/18 01/25/19 01/16/19 clozapine 25 mg PO HS 12/17/18 01/25/19 01/15/19 clozapine 50 mg PO HS 12/17/18 01/25/19 01/15/19 diltiazem HCl 360 mg PO QAM 12/17/18 01/25/19 01/16/19 ibuprofen 400 mg PO TID 12/17/18 01/25/19 01/16/19 levothyroxine 75 mcg PO QAM 12/17/18 01/25/19 01/16/19 lisinopril 20 mg PO QAM 12/17/18 01/25/19 01/16/19 lorazepam 1 mg PO TID PRN 12/17/18 01/25/19 01/16/19 lurasidone [Latuda] 80 mg PO HS 12/17/18 01/25/19 01/15/19 multivitamin 1 tab PO QAM 12/17/18 01/25/19 01/16/19 polyethylene glycol 3350 34 g PO BID 12/17/18 01/25/19 01/16/19 vitamin B complex 1 tab PO QAM 12/17/18 01/25/19 01/16/19 glucos sul [id number]-C-Mn 550 cap PO BID 01/25/19 01/25/19 Unknown [Glucosamine Chondroitin] Past Medical History Medical History Anxiety BPH (benign prostatic hyperplasia) Bipolar disorder Chronic obstructive pulmonary disease controlled Depression Hyperlipidemia HX OF Hypertension Hypothyroidism Kidney tumor LEFT Osteoarthritis Peripheral neuropathy Exercise / Class Metabolic Activity II 4-5 Yardwork/Stairs/Walk up hill Past Family History Family History Other No significant family history Past Surgical History Surgical History H/O prostate biopsy History of bronchoscopy History of colonoscopy History of herniorrhaphy INGUINAL History of tooth extraction Past Anesthesia History No Hx of Anesthesia Complications and No Family Hx of Anesthesia Complications History of PONV No Hx of PONV and No Hx of Motion Sickness Social History Smoking Status: Former smoker tobacco type: cigarettes Do You Dip or Chew Tobacco: No Smoking End Date: QUIT 22+ YEARS AGO Hx Alcohol Use: Yes Alcohol type: wine alcohol intake frequency: a few times a month Hx Substance Use: No substance use type: does not use Review of Systems Patient denies chest pain, shortness of breath, dyspnea on exertion, cough, wheezing, palpitations. Physical Exam Vital Signs VITALS BP 120/80 P 99 TEMP 98.2 SP02 98%RA RESP 16 PHYSICAL Full neck and c-spine range of motion. Full TMJ range of motion. TMD 3 finger breaths Mallampati Score 2 Dentition: full upper dentures, several missing on lower sides/molars Lungs: clear throughout to auscultation Cardiac: regular rate and rhythm, no murmurs noted Spine: normal Carotid arteries: negative bruit Extremities: no edema Large tongue Testing Laboratory Results Urine Color Yellow 01/26/19 Unknown Urine Appearance Clear (Clear) 01/26/19 Unknown Urine pH 7.0 (4.5-7.5) 01/26/19 Unknown Ur Specific Rosie 1.009 (1.000-1.030) 01/26/19 Unknown Urine Protein Negative (Negative) 01/26/19 Unknown Urine Glucose (UA) Negative (Negative) 01/26/19 Unknown Urine Ketones Negative (Negative) 01/26/19 Unknown Urine Nitrite Negative (Negative) 01/26/19 Unknown Ur Leukocyte Esterase Negative (Negative) 01/26/19 Unknown Blood Type O Positive 01/26/19 10:34 Antibody Screen NEGATIVE 01/26/19 10:34 01/16/19 WBC 7.82 H/H 14.1/40.5 PLATELETS 170 SODIUM 141 POTASSIUM 3.9 CHLORIDE 108 CO2 25 BUN 14 CREATININE 0.96 GLUCOSE 90 Electrocardiogram Date: 01/04/19 NSR at 76bpm. Possible LAE. RBBB. Chest X-Ray Date: 01/04/19 Findings: + NAD Other Testing Chest CT: 01/25/19: A 2 mm indeterminate pulmonary nodule within the left lung apex. Statistically, this is likely benign. However, this bears watching on future examinations (report sent to PCP). Otherwise, no convincing evidence for metastatic disease within the chest. A 1.5 cm right thyroid nodule. Trace pericardial effusion.
[2019-01-26 11:53] LABS: Appearance Urine Clear (Clear); Bilirubin Urine Negative (Negative); Blood Urine Negative (Negative); Color Urine Yellow; Glucose Urine UA Negative (Negative); Ketones Urine Negative (Negative); Leukocyte Esterase Urine Negative (Negative); Nitrite Urine Negative (Negative); Protein Urine Negative (Negative); Specific Gravity Urine 1.009 (1.000-1.030); Urobilinogen Urine Negative (Negative)
[2019-01-31] MEDS ORDERED: CLINDAMYCIN 900 MG / 50ML D5W IV SCH (06:00)
[2019-01-31] MEDS ORDERED: LR 15ML/HR IV SCH (06:00)
[2019-01-31] MEDS ORDERED: fentaNYL citrate 100 MCG/2 ML VIAL ONE ×2 (06:58→08:35)
[2019-01-31] MEDS ORDERED: MIDAZOLAM HCL 1 MG/ML 2ML VIAL ONE (06:58)
[2019-01-31] MEDS ORDERED: PROMETHAZINE HCL 12.5 MG in SODIUM CHLORIDE 0.9% 50 ML IV PRN (07:10)
[2019-01-31] MEDS ORDERED: METOCLOPRAMIDE HCL INJ 5 MG/ML 2 ML VIAL IV PRN (07:10)
[2019-01-31] MEDS ORDERED: ATROPINE SULFATE 0.1 MG/ML 10ML SYR IV PRN (07:10)
[2019-01-31] MEDS ORDERED: ONDANSETRON INJ 2 MG/ML 2 ML VIAL IV PRN ×2 (07:10→10:56)
[2019-01-31] MEDS ORDERED: HYDROmorphone INJ 2 MG/ML SYR/VIAL IV PRN (07:10)
[2019-01-31] MEDS ORDERED: ePHEDrine sulfate 50 MG/ML AMP IV PRN (07:10)
[2019-01-31] MEDS ORDERED: fentaNYL citrate 100 MCG/2 ML VIAL IV PRN (07:10)
--- NOTE | 2019-01-31 07:14 | History & Physical Bridge Note ---
Date of Service January 31, 2019 History & Physical Bridge Note I have examined the patient, reviewed the History & Physical and in the interval since the performance of the History & Physical I have noted the following changes of clinical significance: no changes noted
[2019-01-31] MEDS ORDERED: BUPIVACAINE 0.5 % 5 MG/1 ML MPF 30ML VIAL ONE (07:22)
[2019-01-31] MEDS ORDERED: ONDANSETRON INJ 2 MG/ML 2 ML VIAL ONE (08:37)
[2019-01-31] MEDS ORDERED: ePHEDrine sulfate 50 MG/ML SYR ONE (08:37)
[2019-01-31] MEDS ORDERED: GLYCOPYRROLATE 0.2 MG/ML VIAL ONE (08:37)
[2019-01-31] MEDS ORDERED: PHENYLEPHRINE HCL 10 MG/ML VIAL ONE (08:37)
[2019-01-31] MEDS ORDERED: ROCURONIUM BROMIDE 10 MG/ML 5 ML VIAL ONE (08:37)
[2019-01-31] MEDS ORDERED: DEXAMETHASONE SOD INJ 4 MG/ML VIAL ONE (08:37)
[2019-01-31] MEDS ORDERED: NEOSTIGMINE METHYLSULFATE 5 MG/5 ML SYR ONE (08:37)
[2019-01-31] MEDS ORDERED: LARYING-O-JET KIT (LTA) ONE (08:37)
[2019-01-31] MEDS ORDERED: LIDOCAINE HCL 2% 2 ML VIAL/AMP(20MG/ML) INFIL ONE (08:37)
[2019-01-31] MEDS ORDERED: PROPOFOL IV EMULSION 10 MG/ML 20 ML VIAL IV ONE (08:37)
[2019-01-31] MEDS ORDERED: PHENYLEPHRINE 100MCG/ML 5ML SYR ONE (08:37)
[2019-01-31] MEDS ORDERED: ACETAMINOPHEN 1000 MG/100 ML IV IV ONE (09:14)
--- NOTE | 2019-01-31 09:36 | Operative Report ---
Post Operative Report Pre & Post Diagnosis Operation Date: 01/31/19 07:30 Pre-Op Diagnosis: Left Renal Mass Post-Op Diagnosis: Left Renal Mass Procedure Operation Date: 01/31/19 07:30 Actual Procedures p Left Laparoscopic Hand-Assisted Nephrectomy(Left) - Freeman Sampson MD Surgeon Avinash Sampson MD Monument Stonecutter Shireen Falcon Estimated Blood Loss 25 Findings Consistent with Post-Op Diagnosis Specimens left kidney Description of Procedure Patient was identified in the preoperative holding area, appropriate informed consents reviewed and completed and the patient was transported to the operating suite. Upon arrival he received appropriate preoperative antibiotics in the form of clindamycin and general anesthesia. He was placed in a [id number] left side up lateral decubitus position with the bed flexedshe was padded and braced appropriately. To begin the case, left lower quadrant Yan style incision was madecarefully dissecting through the levels of the oblique musculature before identifying the peritoneum and sharply incising it. A finger sweep was performed to confirm no adhesive disease in the area of our incision before expanding this incision to accommodate a hand port before insufflating the abdomen we utilize this incision to incise the white line of Toldt lateral to the kidney. I began mobilizing the colon off of the lower two thirds of the kidney as well as an area below the kidney. I then placed 2-12 mm surgical assistant certified ports the rectus border, 1- 3 cm below the costal margin and the other approximately 8 cm below that. Both of these were placed on to my hand. I then insufflated the abdomen continued my mobilization of the colon. Of note, the splenic flexure was somewhat adherent and was able to mobilize it and incised these adhesions freeing the colon medializing it. Fortunately, these adhesions also help the spleen cephalad and out of our field. After exposing the entire anterior surface of the kidney including Gerota's fascia, I turned to the lower pole of the kidney and identified the gonadal vein. Following the anterior surface of the gonadal vein I encountered the lower aspect of the left renal vein I created a window just lateral to the gonadal vein and just inferior to the renal vein and passed a finger behind the kidney. Psoas muscle was clear at this area and I was able to elevate the kidney. Passing a finger behind the hilum I was able to palpate the renal artery which was immediately posterior and superior to the vein. I carefully dissected a window superior to the artery and lateral to the adrenal vein and I was able to visualize my finger in this window. I then passed a stapling device and control the hilum and a single staple load. A second staple load was utilized to separate the medial aspect of the adrenal gland in the upper pole of the kidney. We then carefully completed the dissection around the kidney by utilizing the harmonic scalpel. The inferior pole of Gerota's fascia was dissected entirely utilizing the harmonic scalpel until only the ureter remained. This was controlled with clips superior and inferior and then divided with the harmonic between. This entirely mobilized the specimen which was extracted through the hand port. We then reinsufflated and inspected for hemostasis which was excellent. I gently push the colon back to the left lateral aspect of the abdomen and draped omentum over the entire surgical site. Lap incisions were closed with a [id number] 0 Vicryl. Main incision was closed in several layers, first utilizing 0 Vicryl to reapproximate the peritoneum followed by closure of the internal and then out external oblique utilizing 0 Vicryl. All incisions were closed with 4-0 Monocryl, infiltrated with half percent Marcaine and closed superficially with Dermabond. Patient was subsequently extubated and taken to the PACU in stable condition. There were no complications. Shireen Falcon was present and assisting throughout, from incision to closure. I attest to the content of the Intraoperative Record and any orders documented therein. Any exceptions are noted below.
--- NOTE | 2019-01-31 10:14 | Anesthesiology Progress Note ---
Date of Service January 31, 2019 Anesthesia Post Procedure Vital Signs Vital Signs: Temp Pulse Pulse Resp BP Pulse Ox 01/31/19 10:00 64 14 121/69 99 01/31/19 09:50 57 L 14 116/67 100 01/31/19 09:40 61 14 118/68 100 01/31/19 09:30 36.1 C L 64 14 106/60 99 01/31/19 06:20 36.5 C 94 H 20 165/100 H 99 Transfer of Care Handoff Completed per policy Notes Mental Status: alert / awake / arousable and participated in evaluation Patient Amnestic to Procedure: Yes Nausea / Vomiting: adequately controlled Pain: adequately controlled Airway Patency, RR, SpO2: stable & adequate BP & HR: stable & adequate Hydration State: stable & adequate Anesthetic Complications: no major complications apparent
[2019-01-31 10:40] LABS: BUN Creatinine Ratio 12.1 (10-20); Calcium 8.9 mg/dl (8.5-10.1); Creatinine Clr Calc Pharmacy 62.4 ml/min; Est GFR (African American) 73.1; Potassium 4.5 mmol/L (3.5-5.1)
[2019-01-31] MEDS ORDERED: OXYCODONE HCL IR 5 MG TAB (IMMEDIATE RELEASE) PO PRN (10:56)
[2019-01-31] MEDS ORDERED: MoRPHine SULFATE 4 MG/ML 1 ML CARP\\VIAL IV PRN (10:56)
[2019-01-31 11:06] LABS: Basophils # (auto) 0.03 K/uL (0-0.2); Basophils % (auto) 0.3 %; Eosinophils # (auto) 0.02 K/uL (0-0.5); Eosinophils % (auto) 0.2 %; Hematocrit (blood only) 37.6 % (42-52); Hemoglobin 12.9 g/dL (14.0-18.0); Immature Granulocytes # (auto) 0.05 K/uL (0.00-0.02); Immature Granulocytes % (auto) 0.4 %; Lymphocytes # (auto) 0.69 K/uL (1.2-3.4); Lymphocytes % (auto) 5.9 %; Mean Corpuscular Hgb Conc 34.3 g/dL (32-36); Mean Corpuscular Volume 87.4 fL (80-100); Monocytes # (auto) 0.41 K/uL (0.11-0.59); Monocytes % (auto) 3.5 %; Neutrophils # (auto) 10.59 K/uL (1.4-6.5); Neutrophils % (auto) 89.7 %; Platelet Count 153 K/uL (130-400); RDW Coefficient of Variation 12.7 % (11.5-14.5); White Blood Count 11.79 K/uL (4.8-10.8)
[2019-01-31] MEDS: LORazepam 1 MG TAB PO PRN ×2 (12:11→20:36)
[2019-01-31] MEDS: LACTATED RINGER'S 1,000 ML IV SCH ×2 (12:12→21:31)
[2019-01-31] MEDS: FAMOTIDINE 20 MG in SYRINGE 3 ML IV SCH ×2 (12:18→20:36)
[2019-01-31] MEDS: CLINDAMYCIN 900 MG in DEXTROSE 5% 50 ML IV SCH ×2 (14:28→22:06)
[2019-01-31] MEDS: LISINOPRIL 20 MG TAB PO SCH (16:21)
[2019-01-31] MEDS: ACETAMINOPHEN 1,000 MG/100 ML VIAL IV PRN (18:11)
[2019-01-31] MEDS ORDERED: HEPARIN SOD 5,000 UNIT/0.5 ML VIAL SQ ONE (19:00)
[2019-01-31] MEDS: POLYETHYLENE (MIRALAX) 17 GM PACK PO SCH (19:10)
[2019-01-31] MEDS: LURASIDONE HCL 40 MG TAB PO SCH (20:32)
[2019-01-31] MEDS: cloZAPine 25 MG TAB PO SCH ×2 (20:32)
[2019-01-31] MEDS: OXYCODONE HCL IR 5 MG TAB (IMMEDIATE RELEASE) PO PRN (21:20)
[2019-02-01] MEDS: LEVOTHYROXINE SODIUM 75 MCG TABLET PO SCH (05:30)
[2019-02-01] MEDS: LACTATED RINGER'S 1,000 ML IV SCH ×3 (05:30→20:47)
[2019-02-01] MEDS: OXYCODONE HCL IR 5 MG TAB (IMMEDIATE RELEASE) PO PRN ×3 (06:25→18:07)
[2019-02-01] MEDS: CLINDAMYCIN 900 MG in DEXTROSE 5% 50 ML IV SCH (06:25)
[2019-02-01 06:27] LABS: Basophils # (auto) 0.01 K/uL (0-0.2); Basophils % (auto) 0.1 %; Hematocrit (blood only) 37.8 % (42-52); Immature Granulocytes # (auto) 0.03 K/uL (0.00-0.02); Immature Granulocytes % (auto) 0.2 %; Lymphocytes # (auto) 0.75 K/uL (1.2-3.4); Lymphocytes % (auto) 5.8 %; Mean Corpuscular Hemoglobin 30.1 pg (25-34); Mean Corpuscular Hgb Conc 34.4 g/dL (32-36); Mean Corpuscular Volume 87.5 fL (80-100); Mean Platelet Volume 10.2 fL (7.4-10.4); Monocytes # (auto) 1.18 K/uL (0.11-0.59); Monocytes % (auto) 9.1 %; Neutrophils # (auto) 11.01 K/uL (1.4-6.5); Neutrophils % (auto) 84.8 %; Platelet Count 169 K/uL (130-400); RDW Coefficient of Variation 12.8 % (11.5-14.5); RDW Standard Deviation 41.5 fL (36.4-46.3); Red Blood Count 4.32 M/uL (4.7-6.1); White Blood Count 12.98 K/uL (4.8-10.8)
[2019-02-01 07:07] LABS: BUN Creatinine Ratio 10.3 (10-20); Calcium 8.8 mg/dl (8.5-10.1); Creatinine Clr Calc Pharmacy 56.6 ml/min; Est GFR (Non-African American) 56.1; Potassium 4.4 mmol/L (3.5-5.1)
--- NOTE | 2019-02-01 08:20 | Anesthesiology Progress Note ---
Date of Service February 01, 2019 Anesthesia Post Procedure Vital Signs Vital Signs: Temp Pulse Pulse Resp BP BP Pulse Ox 02/01/19 08:00 36.7 C 82 18 176/100 H 99 02/01/19 07:24 02/01/19 03:24 36.9 C 79 16 159/87 H 97 01/31/19 23:33 37.1 C 86 16 137/86 99 01/31/19 20:33 36.9 C 78 16 164/95 H 99 01/31/19 15:40 36.8 C 82 20 150/82 H 99 01/31/19 13:45 36.9 C 83 16 146/78 H 98 01/31/19 12:45 74 16 149/71 H 100 01/31/19 11:45 36.5 C 75 16 135/77 100 01/31/19 11:19 36.6 C 66 18 131/80 99 01/31/19 11:15 36.6 C 83 16 127/86 99 01/31/19 10:10 36.1 C L 61 14 117/71 98 01/31/19 10:00 64 14 121/69 99 01/31/19 09:50 57 L 14 116/67 100 01/31/19 09:40 61 14 118/68 100 01/31/19 09:30 36.1 C L 64 14 106/60 99 Pulse Ox 02/01/19 08:00 02/01/19 07:24 97 02/01/19 03:24 01/31/19 23:33 01/31/19 20:33 01/31/19 15:40 01/31/19 13:45 01/31/19 12:45 01/31/19 11:45 01/31/19 11:19 01/31/19 11:15 01/31/19 10:10 01/31/19 10:00 01/31/19 09:50 01/31/19 09:40 01/31/19 09:30 Pain Intensity Abdomen: Pain Intensity: 3 Notes Mental Status: alert / awake / arousable Patient Amnestic to Procedure: Yes Nausea / Vomiting: adequately controlled Pain: adequately controlled Airway Patency, RR, SpO2: stable & adequate BP & HR: stable & adequate Hydration State: stable & adequate Anesthetic Complications: no major complications apparent
[2019-02-01] MEDS: MULTIVITAMIN TAB PO SCH (08:21)
[2019-02-01] MEDS: FAMOTIDINE 20 MG in SYRINGE 3 ML IV SCH (08:21)
[2019-02-01] MEDS: dilTIAZem HCL 180 MG CAPCR PO SCH (08:21)
[2019-02-01] MEDS: HEPARIN SOD 5,000 UNIT/0.5 ML VIAL SQ SCH ×2 (08:23→20:41)
[2019-02-01] MEDS: LISINOPRIL 20 MG TAB PO SCH (09:07)
[2019-02-01] MEDS: POLYETHYLENE (MIRALAX) 17 GM PACK PO SCH ×2 (09:07→20:41)
--- NOTE | 2019-02-01 09:12 | Urology Progress Note ---
Date of Service February 01, 2019 Assessment & Plan (1) Renal mass: Postop day #1 status post left radical nephrectomy Progressing appropriately Continue ambulation DC Reddy Advance diet Possible DC home this afternoon or tomorrow Subjective Patient progressed extremely well overnight He was ambulatory Tolerating clear liquids Minimal pain Labs stable Physical Exam Physical Exam: Incisions appropriateno erythema, no bruising, minimal tenderness Reddy in placeclear Results & Data Vital Signs (Past 12 Hours) Vital Signs Temp Pulse Pulse Resp BP Pulse Ox Pulse Ox 02/01/19 08:00 36.7 C 82 18 176/100 H 99 02/01/19 07:24 97 02/01/19 03:24 36.9 C 79 16 159/87 H 97 01/31/19 23:33 37.1 C 86 16 137/86 99 PG Care Time/CCT Total # of Minutes Spent Total Time Spent with Patient: Total time spent is greater than 50% in coordination of care (as documented) at patient's floor/unit and/or counseling patient:
[2019-02-01] MEDS ORDERED: METOPROLOL TARTRATE 25 MG TAB PO STA (11:56)
[2019-02-01] MEDS ORDERED: Nursing to Pharmacy Communication ONE (12:45)
[2019-02-01] MEDS: LORazepam 1 MG TAB PO PRN ×2 (14:11→20:40)
[2019-02-01] MEDS ORDERED: HydrALAZINE HCL 20 MG/ML VIAL IV PRN (14:48)
[2019-02-01 15:08] LABS: Hematocrit (blood only) 37.7 % (42-52); Hemoglobin 12.8 g/dL (14.0-18.0); Mean Corpuscular Hemoglobin 30.1 pg (25-34); Mean Corpuscular Volume 88.7 fL (80-100); Mean Platelet Volume 10.2 fL (7.4-10.4); Platelet Count 176 K/uL (130-400); RDW Coefficient of Variation 12.9 % (11.5-14.5); RDW Standard Deviation 41.2 fL (36.4-46.3); Red Blood Count 4.25 M/uL (4.7-6.1); White Blood Count 14.33 K/uL (4.8-10.8)
--- NOTE | 2019-02-01 15:08 | XRay Report ---
XR chest 1V portable CLINICAL HISTORY: chest pain COMPARISON STUDY: 01/04/2019 FINDINGS: The cardiac and mediastinal contours are normal. There is no evidence of focal pulmonary co nsolidation. There is no evidence of failure. No pleural effusions are visualized.[There is a large v olume of free intraperitoneal air, presumably postsurgical IMPRESSION: 1. Large volume of free intraperitoneal air, likely postsurgical 2. No active disease in the chest Electronically signed by: Vicente Salmeron M.D. 02/01/2019 3:07 PM
[2019-02-01 15:52] LABS: BUN Creatinine Ratio 8.9 (10-20); Blood Urea Nitrogen 14 mg/dl (7-18); Calcium 8.9 mg/dl (8.5-10.1); Carbon Dioxide 29 mmol/L (21-32); Chloride 108 mmol/L (98-107); Est GFR (African American) 50.6; Est GFR (Non-African American) 43.6; Glucose 98 mg/dl (70-99); Potassium 4.2 mmol/L (3.5-5.1); Sodium 142 mmol/L (136-145)
[2019-02-01 15:56] LABS: Troponin I < 0.015 ng/ml (0-0.045)
--- NOTE | 2019-02-01 16:11 | Communication Note ---
Date of Service: February 01, 2019 Paged by nursing this afternoon for new patient complaint of chest pain. Per nursing, patient walked laps in hallway with spouse x 3 and reported worsening chest discomfort after activity. Stat EKG order placed. Stat consultation to [facility] Hospitalist Service placed. I spoke directly with hospitalist on-call via phone to make aware of stat consultation - hospitalist service will be further evaluating chest pain and hypertension. Patient advised via nursing that he will be staying the night for further workup/observation.
--- NOTE | 2019-02-01 17:34 | Consultation ---
Date of Consultation February 01, 2019 Assessment & Plan (1) Chest pain: most likely due to anxiety described as a pressure, relieved with sitting down and after he got Ativan EKG was done when he was chest pain free, showed NSR with old RBBB, no ischemic changes CXR normal troponin negative no further cardiac work up at this time reassured patient that it was anxiety and he felt much better will sign off at this time, can contact if there are any new issues would be okay with patient going home tomorrow if stable from urology perspective History of Present Illness Requesting Physician: Dr. Sampson Reason for Consultation: chest pain Attending Physician: Avinash Sampson MD History of Present Illness 68 yo male who is 2 days post op from left sided laparoscopic hand assisted nephrectomy, he had a single episode of chest pain this afternoon. The patient says that he was walking in the halls with his . They had finished three laps and were engaged in a deep conversation, according to the patient. He said that the hallway was filled with people (nurses, aides, students) and he started to get anxious and then experienced chest pressure that was quite intense. He had to return to his room and sit down. He had some shortness of breath with this. He has never experienced chest pain on exertion or at rest outside of this experience. He said that the pressure got a little better when he returned to his room and then got a lot better after a dose of Ativan. In all the pain lasted 15 minutes max. His EKG was without ischemic changes and troponin negative. CXR was normal. He has no history of CAD and was cleared by his PCP prior to undergoing the nephrectomy. Allergies Allergy/AdvReac Type Severity Reaction Status Date / Time Penicillins Allergy Unknown UNKNOWN Verified 01/31/19 06:09 REACTION - HAPPENED A CHILD Home Medications Home Medications Medication Instructions Recorded Confirmed Type aspirin 81 mg PO QAM 12/17/18 01/31/19 History clozapine 25 mg PO HS 12/17/18 01/31/19 History clozapine 50 mg PO HS 12/17/18 01/31/19 History diltiazem HCl 360 mg PO QAM 12/17/18 01/31/19 History ibuprofen 400 mg PO TID 12/17/18 01/31/19 History levothyroxine 75 mcg PO QAM 12/17/18 01/31/19 History lisinopril 20 mg PO QAM 12/17/18 01/31/19 History lorazepam 1 mg PO TID PRN 12/17/18 01/31/19 History lurasidone [Latuda] 80 mg PO HS 12/17/18 01/31/19 History multivitamin 1 tab PO QAM 12/17/18 01/31/19 History polyethylene glycol 3350 34 g PO BID 12/17/18 01/31/19 History vitamin B complex 1 tab PO QAM 12/17/18 01/31/19 History glucos sul [id number] 550 cap PO BID 01/25/19 01/31/19 History [Glucosamine Chondroitin] Patient History Medical History Anxiety BPH (benign prostatic hyperplasia) Bipolar disorder Chronic obstructive pulmonary disease controlled Depression Hyperlipidemia HX OF Hypertension Hypothyroidism Kidney tumor LEFT Osteoarthritis Peripheral neuropathy Surgical History H/O prostate biopsy History of bronchoscopy History of colonoscopy History of herniorrhaphy INGUINAL History of tooth extraction Family History Other No significant family history Social History Preferred Language: Israeli Communication Ability: Effective Analog Ic Design Architect Required: No Beliefs That Will Affect Care: None marital status: Single Current Living Situation: Significant Other current occupational status: retired Other Information That Helps Us Care for You: No Feels Safe at Home: Yes Safety Concerns: Feels Safe At This Time Smoking Status: Former smoker Tobacco Type: cigarettes ; Do You Dip or Chew Tobacco: No ; Smoking End Date: QUIT 22+ YEARS AGO ; Second Hand Exposure: No ; Tobacco Cessation Education Requested by Patient: No Hx Alcohol Use: Yes Alcohol type: wine Hx Substance Use: No Review of Systems Review of Systems: All systems reviewed & are unremarkable except as noted in HPI & below Constitutional: no fever, no chills, no sweats, no fatigue and no weakness Respiratory: + dyspnea; no cough and no wheezing Cardiovascular: + chest pain, + chest pain at rest and + dyspnea; no dyspnea at rest, no dyspnea on exertion, no palpitations, no lightheadedness, no syncope and no edema Gastrointestinal: no abdominal pain, no nausea, no vomiting, no constipation and no diarrhea/loose stools Physical Exam Constitutional: WD/WN, vitals as above Eyes: PERRL, conjunctivae normal, anicteric sclerae ENMT: external ear and nose normal, oropharynx normal Neck: trachea midline, no thyromegaly Respiratory: normal respiratory effort, lungs clear to auscultation Cardiovascular: RRR, no murmur, no edema Gastrointestinal (Abdomen): normal bowel sounds, soft, nontender, no hepatosplenomegaly Musculoskeletal: no cyanosis or clubbing, extremities motor strength 5/5 Skin: no rashes, warm and dry Neurologic: patellar DTR's 2+ bilat, sensation intact and PERRL, EOMI, accommodation nl, no face palsy, no dysarthria Psychiatric: A+Ox3, euthymic affect Lymphatic: no cervical or axillary lymphadenopathy Results & Data Vital Signs (Past 12 Hours) Vital Signs Temp Pulse Pulse Resp BP BP Pulse Ox 02/01/19 15:26 37.2 C 72 16 133/83 97 02/01/19 14:03 69 18 157/92 H 98 02/01/19 13:16 150/90 H 02/01/19 11:47 36.8 C 82 18 162/98 H 99 02/01/19 09:50 176/99 H 02/01/19 08:00 36.7 C 82 18 176/100 H 99 02/01/19 07:24 Pulse Ox 02/01/19 15:26 02/01/19 14:03 02/01/19 13:16 02/01/19 11:47 02/01/19 09:50 02/01/19 08:00 02/01/19 07:24 97 Laboratory Results Laboratory Results - last 24 hr 02/01/19 02/01/19 02/01/19 06:06 06:06 06:06 WBC 12.98 H RBC 4.32 L Hgb 13.0 L Hct 37.8 L MCV 87.5 MCH 30.1 MCHC 34.4 RDW Std Deviation 41.5 RDW Coeff of Marcial 12.8 Plt Count 169 MPV 10.2 Immature Gran % (Auto) 0.2 Neut % (Auto) 84.8 Lymph % (Auto) 5.8 [place] % (Auto) 9.1 Eos % (Auto) 0.0 Baso % (Auto) 0.1 Immature Gran # (Auto) 0.03 H Neut # (Auto) 11.01 H Lymph # (Auto) 0.75 L [place] # (Auto) 1.18 H Eos # (Auto) 0.00 Baso # (Auto) 0.01 Sodium 142 Potassium 4.4 Chloride 111 H Carbon Dioxide 24 Anion Gap 7.0 BUN 13 Creatinine 1.30 Est Cr Clr Drug Dosing 56.6 Est GFR ( Amer) 65.0 Est GFR (Non-Af Amer) 56.1 BUN/Creatinine Ratio 10.3 Glucose 115 H Calcium 8.8 Troponin I Hepatitis C Ab Screen Neg 02/01/19 02/01/19 14:54 14:54 WBC 14.33 H RBC 4.25 L Hgb 12.8 L Hct 37.7 L MCV 88.7 MCH 30.1 MCHC 34.0 RDW Std Deviation 41.2 RDW Coeff of Marcial 12.9 Plt Count 176 MPV 10.2 Immature Gran % (Auto) Neut % (Auto) Lymph % (Auto) [place] % (Auto) Eos % (Auto) Baso % (Auto) Immature Gran # (Auto) Neut # (Auto) Lymph # (Auto) [place] # (Auto) Eos # (Auto) Baso # (Auto) Sodium 142 Potassium 4.2 Chloride 108 H Carbon Dioxide 29 Anion Gap 5.0 BUN 14 Creatinine 1.60 H D Est Cr Clr Drug Dosing 46.0 Est GFR ( Amer) 50.6 Est GFR (Non-Af Amer) 43.6 BUN/Creatinine Ratio 8.9 L Glucose 98 Calcium 8.9 Troponin I < 0.015 Hepatitis C Ab Screen Diagnostic Findings XR chest 1V portable CLINICAL HISTORY: chest pain COMPARISON STUDY: 01/04/2019 FINDINGS: The cardiac and mediastinal contours are normal. There is no evidence of focal pulmonary consolidation. There is no evidence of failure. No pleural effusions are visualized.[There is a large volume of free intraperitoneal air, presumably postsurgical IMPRESSION: 1. Large volume of free intraperitoneal air, likely postsurgical 2. No active disease in the chest Medications Administered Current Inpatient Medications Clozapine (Clozaril) 25 mg PO HS PAUL Stop: 03/02/19 20:59 Last Admin: 02/01/19 20:41 Dose: 25 mg Documented by: Clozapine (Clozaril) 50 mg PO PAUL Stop: 03/02/19 20:59 Last Admin: 02/01/19 20:41 Dose: 50 mg Documented by: Diltiazem HCl (Cardizem Cd) 360 mg PO QAM [facility] Stop: 03/03/19 08:59 Last Admin: 02/01/19 08:21 Dose: 360 mg Documented by: Docusate Sodium (Colace) 100 mg PO BID [facility] Stop: 03/03/19 20:59 Last Admin: 02/01/19 20:40 Dose: 100 mg Documented by: Famotidine (Pepcid) 20 mg PO BID [facility]; Protocol Stop: 03/03/19 20:59 Last Admin: 02/01/19 20:40 Dose: 20 mg Documented by: Heparin Sodium (Porcine) (Heparin Sodium (Porcine)) 5,000 units SQ Q12 [facility] Stop: 03/02/19 20:59 Last Admin: 02/01/19 20:41 Dose: 5,000 units Documented by: Hydralazine HCl (Hydralazine Hcl) 10 mg IV Q6 PRN PRN Reason: Blood Pressure - High Stop: 03/03/19 14:47 Acetaminophen (Ofirmev) 1,000 mg in 100 mls @ 400 mls/hr IV Q8H PRN PRN Reason: MILD Pain (Scale 1,2,3) Stop: 03/02/19 10:55 Last Infusion: 01/31/19 18:55 Dose: Infused Documented by: Lactated Ringer's (Lr) 1,000 mls @ 125 mls/hr IV .Q8H [facility] Stop: 03/02/19 10:55 Last Admin: 02/01/19 20:47 Dose: Not Given Documented by: Levothyroxine Sodium (Synthroid) 75 mcg PO DAILYBB [facility] Stop: 03/03/19 06:29 Last Admin: 02/01/19 05:30 Dose: 75 mcg Documented by: Lisinopril (Zestril) 20 mg PO QAM [facility] Stop: 03/03/19 08:59 Last Admin: 02/01/19 09:07 Dose: 20 mg Documented by: Lorazepam (Ativan) 1 mg PO TID PRN PRN Reason: Anxiety Stop: 03/02/19 10:55 Last Admin: 02/01/19 20:40 Dose: 1 mg Documented by: Lurasidone HCl (Latuda) 80 mg PO HS [facility] Stop: 03/02/19 20:59 Last Admin: 02/01/19 20:40 Dose: 80 mg Documented by: Morphine Sulfate (Morphine Sulfate) 3 mg IV Q3H PRN PRN Reason: SEVERE Pain (Scale 7,8,9,10) Stop: 02/14/19 10:55 Multivitamins (Multivitamin Tab) [facility] Stop: 03/03/19 08:59 Last Admin: 02/01/19 08:21 Dose: 1 tab Documented by: Ondansetron HCl (Zofran) 4 mg IV Q6H PRN PRN Reason: Nausea And Vomiting Stop: 03/02/19 10:55 Oxycodone HCl (Roxicodone Immediate Rel) 10 mg PO Q4H PRN PRN Reason: SEVERE Pain (Scale 7,8,9,10) Stop: 02/14/19 10:55 Oxycodone HCl (Roxicodone Immediate Rel) 5 mg PO Q4H PRN PRN Reason: MODERATE Pain (Scale 4,5,6) Stop: 02/14/19 10:55 Last Admin: 02/01/19 18:07 Dose: 5 mg Documented by: Polyethylene Glycol (Miralax Powder Packet) 34 gm PO BID [facility] Stop: 03/03/19 20:59 Last Admin: 02/01/19 20:41 Dose: 34 gm Documented by: ECG Indication: chest pain Rhythm: normal sinus Findings: + RBBB Comparison ECG Date: from (01/04/19) Change: no significant change PG Care Time/CCT Total # of Minutes Spent Total Time Spent with Patient: Total time spent is greater than 50% in coordination of care (as documented) at patient's floor/unit and/or counseling patient:
[2019-02-01] MEDS: LURASIDONE HCL 40 MG TAB PO SCH (20:40)
[2019-02-01] MEDS: FAMOTIDINE 20 MG TAB PO SCH (20:40)
[2019-02-01] MEDS: DOCUSATE SODIUM 100 MG CAP PO SCH (20:40)
[2019-02-01] MEDS: cloZAPine 25 MG TAB PO SCH ×2 (20:41)
[2019-02-02] MEDS: LEVOTHYROXINE SODIUM 75 MCG TABLET PO SCH (06:14)
[2019-02-02] MEDS: LORazepam 1 MG TAB PO PRN (06:16)
[2019-02-02 07:35] LABS: Basophils # (auto) 0.03 K/uL (0-0.2); Basophils % (auto) 0.3 %; Eosinophils # (auto) 0.12 K/uL (0-0.5); Eosinophils % (auto) 1.1 %; Hematocrit (blood only) 39.6 % (42-52); Hemoglobin 13.7 g/dL (14.0-18.0); Immature Granulocytes # (auto) 0.03 K/uL (0.00-0.02); Immature Granulocytes % (auto) 0.3 %; Lymphocytes # (auto) 1.42 K/uL (1.2-3.4); Lymphocytes % (auto) 13.2 %; Mean Corpuscular Hemoglobin 30.7 pg (25-34); Mean Corpuscular Hgb Conc 34.6 g/dL (32-36); Mean Corpuscular Volume 88.8 fL (80-100); Mean Platelet Volume 10.4 fL (7.4-10.4); Monocytes # (auto) 1.13 K/uL (0.11-0.59); Monocytes % (auto) 10.5 %; Neutrophils # (auto) 8.04 K/uL (1.4-6.5); Neutrophils % (auto) 74.6 %; Platelet Count 181 K/uL (130-400); RDW Standard Deviation 42.3 fL (36.4-46.3); Red Blood Count 4.46 M/uL (4.7-6.1); White Blood Count 10.77 K/uL (4.8-10.8)
[2019-02-02 08:09] LABS: BUN Creatinine Ratio 10.7 (10-20); Calcium 9.4 mg/dl (8.5-10.1); Creatinine Clr Calc Pharmacy 50.1 ml/min; Est GFR (Non-African American) 48.3; Potassium 3.9 mmol/L (3.5-5.1)
[2019-02-02] MEDS: dilTIAZem HCL 180 MG CAPCR PO SCH (08:44)
[2019-02-02] MEDS: MULTIVITAMIN TAB PO SCH (08:44)
[2019-02-02] MEDS: DOCUSATE SODIUM 100 MG CAP PO SCH (08:44)
[2019-02-02] MEDS: LISINOPRIL 20 MG TAB PO SCH (08:44)
[2019-02-02] MEDS: HEPARIN SOD 5,000 UNIT/0.5 ML VIAL SQ SCH (08:45)
[2019-02-02] MEDS: FAMOTIDINE 20 MG TAB PO SCH (08:45)
[2019-02-02] MEDS: POLYETHYLENE (MIRALAX) 17 GM PACK PO SCH (08:49)
[2019-02-02] MEDS: ACETAMINOPHEN 1,000 MG/100 ML VIAL IV PRN (09:24)
--- NOTE | 2019-02-02 10:59 | Urology Progress Note ---
Date of Service February 02, 2019 Assessment & Plan (1) Renal mass: POD#2 s/p left rad nx - plan for d/c home - CP yesterday - eval from med - felt to be anxiety - fall last night - fortunately, no injuries - overall, in discussion with the patient and his GF - it sounds as though his comfort level may be far higher in his home environment Subjective feels well this am ambulating pain controlled tolerating his diet had a fall last night - no injuries attempted to walk to the restroom and is uncertain if he tripped on the SCDs or slipped, but ended up on the floor moderate confusion around that time Physical Exam Physical Exam: incisions appropriate Results & Data Vital Signs (Past 12 Hours) Vital Signs Temp Pulse Pulse Resp BP Pulse Ox 02/02/19 07:13 36.7 C 81 18 170/96 H 97 02/01/19 22:59 37.2 C 81 16 155/90 H 93 PG Care Time/CCT Total # of Minutes Spent Total Time Spent with Patient: Total time spent is greater than 50% in coordination of care (as documented) at patient's floor/unit and/or counseling patient:
--- NOTE | 2019-02-03 07:51 | Discharge Summary ---
Date of Service February 03, 2019 Admission HPI Per Admitting Provider Incidental discovery of a large left renal massnow presenting for definitive treatment in the form of radical nephrectomy Principal Diagnosis Clear-cell renal cell carcinoma Discharge Data Allergies Allergy/AdvReac Type Severity Reaction Status Date / Time Penicillins Allergy Unknown UNKNOWN Verified 01/31/19 06:09 REACTION - HAPPENED A CHILD Consultations 02/01/19 08:00 Consult Patient Rep / Service Excellence [Consult Patient Services] Routine 02/01/19 14:21 Consult Hospitalist Stat Procedures Performed Operation Date: 01/31/19 07:30 Actual Procedures p Left Laparoscopic Hand-Assisted Nephrectomy(Left) - Freeman Sampson MD Hospital Course (1) Clear cell carcinoma of left kidney: Patient underwent an uneventful left radical nephrectomyrecovery was appropriate. He did have an episode of hypertension in the first 24 hours postoperativelywe adjusted his medications appropriately. He additionally experienced some chest pain while ambulating. He had an evaluation with EKG and medical consultationfelt to be anxiety driven. He had no further episodes of a similar nature. He did experience a fall on the night of postoperative day 1, I believe he tripped on his SCDs while trying to get to the bathroom. There were no injuries. He was discharged on postoperative day 2 in stable condition with appropriate lab values implying good function from his remaining kidney. Total Time Total Time Spent Total Time Spent (In Minutes): 30 Total Time Includes: Examination of the Patient, Discharge Planning, Medication Reconciliation and Communication With Other Providers Discharge Plan Discharge Items Patient Disposition: Home - Self-Care Reason For Visit: Renal Mass Discharge Diagnosis: renal mass Discharge Goals: Decrease discomfort, Improve disease control and Improve function Activity: Per 'Additional Instructions' section Lifting: No more than 25 pounds Bathing: No limitations Sexual Activity: When tolerated Exercise/Sports: Gradually increase as tolerated Driving/Machine Use Comment: You may drive when you are off of pain meds and can safely control your car Non-emergency contact: Urologist Call non-emergency contact if: you have any medication questions, your pain is not controlled, your pain is concerning for you, you have a fever and your temperature is above 101.5 Follow-up/Referrals: Sung Gilbert MD [Primary Care Provider] - Diet: Regular Addtl Provider Instructions: Please take all medications as prescribed and keep all follow-ups as scheduled. Please call our office at [phone] with any questions, concerns or need to reschedule appointments for any reason. We are happy to assist you. Recovering at home: We recommend having someone with you for the first few days after surgery to help care for you. It is okay to shower tomorrow. Please avoid swimming, bathing or using hot tub until incisions are well healed. Avoid driving until you are not requiring pain medication any further. Walk at least a few times a day. Increase your distance, as you feel able. Stairs in your home are okay. Please avoid strenuous or sexual activity until your follow-up. We recommend using stool softener (i.e. Colace) to prevent constipation and straining, especially the first two weeks post operatively. Call [facility] at [phone] if you experience: Chest pain or trouble breathing (call 161 or go to the hospital). Fever of 101F or higher Symptoms of infection at incision site, including redness or swelling, warmth, or bad-smelling drainage If you have catheter, and you notice: o Bloody urine or drainage that is dark red or has large clots (Please remember a small amount of blood is normal) o No drainage from the catheter for more than 6 hours o The catheter comes out of your bladder Pain that is not controlled with medicines Prescriptions: New hydrocodone-acetaminophen 5-325 mg tablet 1 tab PO Q6H PRN (Reason: pain) Qty: 25 RF: 0 Continued clozapine 25 mg tablet 25 mg PO HS RF: 0 clozapine 50 mg tablet 50 mg PO HS RF: 0 multivitamin Tablet 1 tab PO QAM RF: 0 lisinopril 20 mg tablet 20 mg PO QAM RF: 0 aspirin 81 mg Tablet,Delayed Release (Dr/Ec) 81 mg PO QAM RF: 0 levothyroxine 75 mcg tablet 75 mcg PO QAM RF: 0 ibuprofen 200 mg Tablet 400 mg PO TID RF: 0 vitamin B complex Tablet 1 tab PO QAM RF: 0 lorazepam 1 mg tablet 1 mg PO TID PRN (Reason: Anxiety) RF: 0 polyethylene glycol 3350 17 gram/dose powder 34 g PO BID RF: 0 diltiazem HCl 360 mg tablet extended release 24 hr 360 mg PO QAM RF: 0 Latuda 80 mg tablet 80 mg PO HS RF: 0 Glucosamine Chondroitin 550-30-1 mg Capsule 550 cap PO BID RF: 0 Stand-Alone Forms: [facility], [facility] Discharge Orders: Discharge Order (Routine); Ordered 02/02/19 Ordered By: Freeman Sampson Admission Data Admit Date/Time: 01/31/19 09:33 Attending Provider: Freeman Sampson Admit Provider: Freeman Sampson Primary Care Provider: Sung Gilbert Other Providers: Jonathan Tobias ; Shae Read ; Bri Hogue ; Karri Crawford ; Bashir Hernandez ; Roula Austin ; Raffi Green ; Wicho Springer ; Wes Nugent ; Niurka Solano ; Fidelina Gaytan ; Salma Aragon ; Graham Chauhan ; Raeann Cano ; Gio Nair ; Adan Alcala ; Shae Turpin ; Ana Reyes ; Pérez Patterson ; Freeman Galarza ; Arthur Andres ; Deepali Barrera ; Javed Lester ; Sigifredo Cifuentes ; Erica Caldwell Service: Surgical Services Other Interventions: Discharge Summary Assessment (RN) Last Done: 02/02/19 15:37 DC Date/Time DO NOT enter until pt leaves facility: 02/02/19 18:19
== END 2019-02-02 18:19 | disposition home or self-care (01) | DRG 658 ==
LOC: ASU 05:43 → 3W 09:33

== ENCOUNTER 2021-07-21 10:54 | Inpatient (IN) ==
--- NOTE | 2021-07-21 11:43 | Emergency Department Note ---
Impression & Plan Pneumonia, Anemia, Acute hypotension, Chest wall contusion, Fall ED Provider Note NAME: DANI WALLACE III AGE: 71 SEX: M : 1950 ARRIVES VIA: Ambulance INFORMANT: Patient, ED PROVIDER(S): Hayder Gilmore DO CHIEF COMPLAINT: Weakness HPI: The patient is a 71-year-old male who presented to emergency department after a fall. The patient states he accidentally took his evening medications this morning. He states that he was walking his dog when he fell. The patient landed on his left side. He presented to the emergency department hypotensive with an altered mental status. This is when we realized the patient had taken wrong medications. He takes benzodiazepines as well as chronic pain medication. He states otherwise he is taken all of his medications and usual dosages. He denies having any suicidal ideation. He does complain of left-sided chest pain which is worse with ambulation as well as deep breathing. The patient is unsure if he had a loss of consciousness. He denies having any neck pain. He denies have any lower extremity pain. He was able to stand with assistance. ROS: See above HPI for pertinent positives & negatives. A total of 10 systems reviewed and were otherwise negative. PAST MEDICAL HISTORY: See Below PAST SURGICAL HISTORY: See Below FAMILY HISTORY: See Below SOCIAL HISTORY: See Below HOME MEDICATIONS: See Below ALLERGIES: See Below VITALS: See Below PHYSICAL EXAMINATION: GENERAL: The patient is awake and alert. The patient is tired appearing but reacts to verbal commands. EYES: The conjunctivae are clear. The pupils are constricted but reactive minimally. EARS, NOSE, MOUTH AND THROAT: The nose is without any evidence of any deformity. Mucous membranes are moist. NECK: The neck is nontender and supple. RESPIRATORY: Normal respiratory effort is noted there is no evidence of wheezing rhonchi or rales CARDIOVASCULAR: Regular rate and rhythm noted there no murmurs rubs or gallops normal S1 normal S2. GASTROINTESTINAL: The abdomen is soft. Abdomen is nontender. BACK: No specific midline tenderness was appreciated. MUSCULOSKELETAL/EXTREMITIES: There is no evidence of gross deformity full range of motion is noted in the hips and shoulders. There is tenderness to palpation over the left lateral chest wall. There is no crepitus. Pain extends into the left upper quadrant. SKIN: There is no obvious evidence of any rash. There are no petechiae, pallor or cyanosis noted. NEUROLOGIC: Patient is awake to verbal commands. He is oriented to person place and time. Strength was symmetric but diminished in both lower extremities . MEDICAL DECISION MAKING: The patient is a 71-year-old male who presented to the emergency department for an evaluation after fall. The patient had a fall onto his left side. He had left-sided rib pain. He was found to have a single rib fracture. I discussed patient's laboratory and radiographic studies with him. He seemed to be obtunded at some point and states it was because he took his nighttime medications this morning. He also was found to have signs of pneumonia on chest x-ray. This was better depicted on CT the chest. Blood cultures were obtained. The patient was treated with IV fluids and IV antibiotics. He was reevaluated multiple times. I discussed the patient's laboratory and radiographic studies with him. [facility] also [facility] have agreed to evaluate the patient in the emergency department for further management and disposition. Triage Nursing notes reviewed. Prior medical records reviewed Vital Signs: reviewed and remarkable for no significant abnormalities Differential diagnosis: Fracture, dislocation, contusion, intra-abdominal, pneumothorax, intrathoracic, intracranial, neurologic, compartment syndrome, rhabdomyolysis, as well as other pathologies. ER treatment provided: See below Diagnostics interpreted by me: ECG: EKG was obtained in the emergency department. My interpretation is normal sinus rhythm at 73 bpm. Right bundle branch block pattern was noted. There is no PVCs noted. This was compared to a tracing from May 032020. No changes were noted. Cardiac Monitoring: An order was placed for continuous cardiac monitoring. The monitor shows a rate of 78 bpm with sinus rhythm. Laboratory studies: As stated above and show below. Imaging studies: See below Consultation(s): I discussed this case with Dr. Solano who [facility]. Past Med/Surg History Medical History (Updated 07/21/21 @ 15:03 by COSME Acharya) Anxiety Bipolar disorder BPH (benign prostatic hyperplasia) Chronic obstructive pulmonary disease controlled Depression Hyperlipidemia HX OF Hypertension Hypothyroidism Kidney tumor LEFT Osteoarthritis Peripheral neuropathy Surgical History H/O prostate biopsy History of bronchoscopy History of colonoscopy History of herniorrhaphy INGUINAL History of tooth extraction Family History Other No significant family history Social History Smoking Status: Former smoker Second Hand Exposure: No; Hx Alcohol Use: Yes Alcohol type: wine Hx Substance Use: No Preferred Language: Samoan Communication Ability: Effective Manager Orange Required: No Beliefs That Will Affect Care: None marital status: Single Current Living Situation: Significant Other current occupational status: retired Feels Safe at Home: Yes Assistive Devices: Denture - Upper and Glasses Allergies Allergies Allergy/AdvReac Type Severity Reaction Status Date / Time Penicillins Allergy Unknown UNKNOWN Verified 07/21/21 11:45 REACTION - HAPPENED A CHILD oxycodone [From OxyContin] AdvReac Intermediate Fainting Unverified 07/21/21 11:45 Home Meds Home Medications Medication Instructions Recorded Confirmed clozapine 25 mg tablet 25 mg PO HS 12/17/18 07/21/21 clozapine 50 mg tablet 50 mg PO 12/17/18 07/21/21 diltiazem HCl 360 mg 360 mg PO QAM 12/17/18 07/21/21 tablet,extended release 24 hr levothyroxine 75 mcg tablet 75 mcg PO QAM 12/17/18 07/21/21 lorazepam 1 mg tablet 1 mg PO QPM 12/17/18 07/21/21 lurasidone 80 mg tablet (Latuda) 80 mg PO 12/17/18 07/21/21 multivitamin 1 tab PO QAM 12/17/18 07/21/21 polyethylene glycol 3350 17 17 g PO BID 12/17/18 07/21/21 gram/dose oral powder vitamin B complex 1 tab PO QAM 12/17/18 07/21/21 glucosamine sulf dipot 550 cap PO DAILY 01/25/19 07/21/21 chlr,msm,chond 550 mg-C 30 mg-bel 1 mg capsule (Glucosamine Chondroitin) lisinopril 5 mg tablet 7.5 mg PO QAM 11/25/20 07/21/21 lurasidone 20 mg tablet (Latuda) 20 mg PO HS 11/25/20 07/21/21 escitalopram oxalate 20 mg tablet 20 mg PO DAILY 05/03/21 07/21/21 hydrochlorothiazide 12.5 mg tablet 12.5 mg PO DAILY 05/03/21 07/21/21 lorazepam 1 mg tablet 1 mg PO DAILY PRN 05/03/21 07/21/21 ciclopirox 0.77 % topical cream 1 applic TOPICAL BID 07/21/21 07/21/21 deutetrabenazine 12 mg tablet 12 mg PO BID 07/21/21 07/21/21 (Austedo) Results & Data (ED) Vital Signs Vital Signs - 24 hr 07/21/21 10:54 07/21/21 11:35 07/21/21 13:36 Temperature 36.9 C Temperature Source Oral Pulse Rate 83 Pulse Rate [Radial] 66 Respiratory Rate 18 18 Blood Pressure 115/64 Blood Pressure [Right Arm] 115/64 Blood Pressure Mean 81 Blood Pressure Mean [Right Arm] 81 Pulse Oximetry 97 96 Oxygen Delivery Method Room Air Room Air Sepsis Recent Fever Within 48 Hours No Sepsis New/Unexplained Change in Mental Status No Sepsis Action Taken by Nursing No Action Required Home Medications Current Medication List: was personally reviewed by me Laboratory Data Attestation: I reviewed the patient's lab results. Result diagrams: 07/21/21 11:38 07/21/21 11:38 Lab Results 07/21/21 07/21/21 07/21/21 Range/Units 11:38 11:38 11:38 WBC 12.14 H (4.8-10.8) K/uL RBC 3.11 L (4.7-6.1) M/uL Hgb 9.2 L (14.0-18.0) g/dL Hct 27.7 L (42-52) % MCV 89.1 (80-100) fL MCH 29.6 (25-34) pg MCHC 33.2 (32-36) g/dL RDW Std Deviation 46.9 H (36.4-46.3) fL RDW Coeff of Marcial 14.2 (11.5-14.5) % Plt Count 201 (130-400) K/uL MPV 9.5 (7.4-10.4) fL Immature Gran % (Auto) 0.2 % Neut % (Auto) 88.0 % Lymph % (Auto) 7.2 % [place] % (Auto) 4.4 % Eos % (Auto) 0.1 % Baso % (Auto) 0.1 % Neut # (Auto) 10.68 H (1.4-6.5) K/uL Lymph # (Auto) 0.87 L (1.2-3.4) K/uL [place] # (Auto) 0.54 (0.11-0.59) K/uL Eos # (Auto) 0.01 (0-0.5) K/uL Baso # (Auto) 0.01 (0-0.2) K/uL Immature Gran # (Auto) 0.03 H (0.00-0.02) K/uL PT 11.2 (9.0-12.0) Seconds INR 1.1 (0.9-1.1) APTT 31.9 H (21.0-31.0) Seconds PTT Ratio 1.2 Sodium 137 (136-145) mmol/L Potassium 3.4 L (3.5-5.1) mmol/L Chloride 106 (98-107) mmol/L Carbon Dioxide 24 (21-32) mmol/L Anion Gap 7 (3-11) BUN 25 H (6-23) mg/dl Creatinine 1.25 (0.6-1.4) mg/dl Est Cr Clr Drug Dosing Not Reportable Est GFR ( Amer) 66.7 ml/min Est GFR (Non-Af Amer) 57.6 ml/min BUN/Creatinine Ratio 20.0 (10-20) Glucose 141 H (70-99(Fasting)) mg/dl Calcium 8.5 (8.5-10.1) mg/dl Magnesium 2.1 (1.7-2.4) mg/dl Iron (35-175) mcg/dl TIBC Unsaturated IBC (155-355) mcg/dl Transferrin % Sat Total Bilirubin 0.5 (0.2-1.0) mg/dl AST 15 (13-39) U/L ALT 17 (7-52) U/L Alkaline Phosphatase 41 (34-104) U/L Troponin I < 0.03 (0-0.04) ng/ml C-Reactive Protein (0-0.5) mg/dl Total Protein 5.5 L (6.0-8.3) gm/dl Albumin 3.2 L (3.4-5.0) gm/dl Globulin 2.3 L (2.5-4.0) gm/dl Albumin/Globulin Ratio 1.4 (0.9-2) Procalcitonin (0-0.5) ng/ml TSH (0.300-4.500) uIu/ml Salicylates (3.0-30) mg/dl Acetaminophen (10-30) ug/ml Ethyl Alcohol mg/dL (<10.0) mg/dl SARS-CoV-2, RNA, NAAT (NEGATIVE) 07/21/21 07/21/21 07/21/21 Range/Units 11:38 11:38 11:59 WBC (4.8-10.8) K/uL RBC (4.7-6.1) M/uL Hgb (14.0-18.0) g/dL Hct (42-52) % MCV (80-100) fL MCH (25-34) pg MCHC (32-36) g/dL RDW Std Deviation (36.4-46.3) fL RDW Coeff of Marcial (11.5-14.5) % Plt Count (130-400) K/uL MPV (7.4-10.4) fL Immature Gran % (Auto) % Neut % (Auto) % Lymph % (Auto) % [place] % (Auto) % Eos % (Auto) % Baso % (Auto) % Neut # (Auto) (1.4-6.5) K/uL Lymph # (Auto) (1.2-3.4) K/uL [place] # (Auto) (0.11-0.59) K/uL Eos # (Auto) (0-0.5) K/uL Baso # (Auto) (0-0.2) K/uL Immature Gran # (Auto) (0.00-0.02) K/uL PT (9.0-12.0) Seconds INR (0.9-1.1) APTT (21.0-31.0) Seconds PTT Ratio Sodium (136-145) mmol/L Potassium (3.5-5.1) mmol/L Chloride (98-107) mmol/L Carbon Dioxide (21-32) mmol/L Anion Gap (3-11) BUN (6-23) mg/dl Creatinine (0.6-1.4) mg/dl Est Cr Clr Drug Dosing Est GFR ( Amer) ml/min Est GFR (Non-Af Amer) ml/min BUN/Creatinine Ratio (10-20) Glucose (70-99(Fasting)) mg/dl Calcium (8.5-10.1) mg/dl Magnesium (1.7-2.4) mg/dl Iron < 10 L (35-175) mcg/dl TIBC TNP Unsaturated IBC 211 (155-355) mcg/dl Transferrin % Sat TNP Total Bilirubin (0.2-1.0) mg/dl AST (13-39) U/L ALT (7-52) U/L Alkaline Phosphatase (34-104) U/L Troponin I (0-0.04) ng/ml C-Reactive Protein (0-0.5) mg/dl Total Protein (6.0-8.3) gm/dl Albumin (3.4-5.0) gm/dl Globulin (2.5-4.0) gm/dl Albumin/Globulin Ratio (0.9-2) Procalcitonin (0-0.5) ng/ml TSH 2.981 (0.300-4.500) uIu/ml Salicylates < 3.0 L (3.0-30) mg/dl Acetaminophen 6 L (10-30) ug/ml Ethyl Alcohol mg/dL (<10.0) mg/dl SARS-CoV-2, RNA, NAAT (NEGATIVE) 07/21/21 07/21/21 07/21/21 Range/Units 11:59 13:40 14:20 WBC (4.8-10.8) K/uL RBC (4.7-6.1) M/uL Hgb (14.0-18.0) g/dL Hct (42-52) % MCV (80-100) fL MCH (25-34) pg MCHC (32-36) g/dL RDW Std Deviation (36.4-46.3) fL RDW Coeff of Marcial (11.5-14.5) % Plt Count (130-400) K/uL MPV (7.4-10.4) fL Immature Gran % (Auto) % Neut % (Auto) % Lymph % (Auto) % [place] % (Auto) % Eos % (Auto) % Baso % (Auto) % Neut # (Auto) (1.4-6.5) K/uL Lymph # (Auto) (1.2-3.4) K/uL [place] # (Auto) (0.11-0.59) K/uL Eos # (Auto) (0-0.5) K/uL Baso # (Auto) (0-0.2) K/uL Immature Gran # (Auto) (0.00-0.02) K/uL PT (9.0-12.0) Seconds INR (0.9-1.1) APTT (21.0-31.0) Seconds PTT Ratio Sodium (136-145) mmol/L Potassium (3.5-5.1) mmol/L Chloride (98-107) mmol/L Carbon Dioxide (21-32) mmol/L Anion Gap (3-11) BUN (6-23) mg/dl Creatinine (0.6-1.4) mg/dl Est Cr Clr Drug Dosing Est GFR ( Amer) ml/min Est GFR (Non-Af Amer) ml/min BUN/Creatinine Ratio (10-20) Glucose (70-99(Fasting)) mg/dl Calcium (8.5-10.1) mg/dl Magnesium (1.7-2.4) mg/dl Iron (35-175) mcg/dl TIBC Unsaturated IBC (155-355) mcg/dl Transferrin % Sat Total Bilirubin (0.2-1.0) mg/dl AST (13-39) U/L ALT (7-52) U/L Alkaline Phosphatase (34-104) U/L Troponin I (0-0.04) ng/ml C-Reactive Protein 14.42 H (0-0.5) mg/dl Total Protein (6.0-8.3) gm/dl Albumin (3.4-5.0) gm/dl Globulin (2.5-4.0) gm/dl Albumin/Globulin Ratio (0.9-2) Procalcitonin (0-0.5) ng/ml TSH (0.300-4.500) uIu/ml Salicylates (3.0-30) mg/dl Acetaminophen (10-30) ug/ml Ethyl Alcohol mg/dL < 10.0 (<10.0) mg/dl SARS-CoV-2, RNA, NAAT NEGATIVE (NEGATIVE) 07/21/21 Range/Units 14:20 WBC (4.8-10.8) K/uL RBC (4.7-6.1) M/uL Hgb (14.0-18.0) g/dL Hct (42-52) % MCV (80-100) fL MCH (25-34) pg MCHC (32-36) g/dL RDW Std Deviation (36.4-46.3) fL RDW Coeff of Marcial (11.5-14.5) % Plt Count (130-400) K/uL MPV (7.4-10.4) fL Immature Gran % (Auto) % Neut % (Auto) % Lymph % (Auto) % [place] % (Auto) % Eos % (Auto) % Baso % (Auto) % Neut # (Auto) (1.4-6.5) K/uL Lymph # (Auto) (1.2-3.4) K/uL [place] # (Auto) (0.11-0.59) K/uL Eos # (Auto) (0-0.5) K/uL Baso # (Auto) (0-0.2) K/uL Immature Gran # (Auto) (0.00-0.02) K/uL PT (9.0-12.0) Seconds INR (0.9-1.1) APTT (21.0-31.0) Seconds PTT Ratio Sodium (136-145) mmol/L Potassium (3.5-5.1) mmol/L Chloride (98-107) mmol/L Carbon Dioxide (21-32) mmol/L Anion Gap (3-11) BUN (6-23) mg/dl Creatinine (0.6-1.4) mg/dl Est Cr Clr Drug Dosing Est GFR ( Amer) ml/min Est GFR (Non-Af Amer) ml/min BUN/Creatinine Ratio (10-20) Glucose (70-99(Fasting)) mg/dl Calcium (8.5-10.1) mg/dl Magnesium (1.7-2.4) mg/dl Iron (35-175) mcg/dl TIBC Unsaturated IBC (155-355) mcg/dl Transferrin % Sat Total Bilirubin (0.2-1.0) mg/dl AST (13-39) U/L ALT (7-52) U/L Alkaline Phosphatase (34-104) U/L Troponin I (0-0.04) ng/ml C-Reactive Protein (0-0.5) mg/dl Total Protein (6.0-8.3) gm/dl Albumin (3.4-5.0) gm/dl Globulin (2.5-4.0) gm/dl Albumin/Globulin Ratio (0.9-2) Procalcitonin 0.15 (0-0.5) ng/ml TSH (0.300-4.500) uIu/ml Salicylates (3.0-30) mg/dl Acetaminophen (10-30) ug/ml Ethyl Alcohol mg/dL (<10.0) mg/dl SARS-CoV-2, RNA, NAAT (NEGATIVE) Administered Medications Lidocaine (Lidocaine 5% 1 Patch) 1 patch TD QAM PAUL Stop: 08/20/21 16:14 Last Admin: 07/21/21 16:10 Dose: 1 patch Documented by: [id number] Discontinued Medications Azithromycin (Azithromycin 250 Mg Tab) 500 mg PO NOW STA Stop: 07/21/21 15:07 Last Admin: 07/21/21 15:34 Dose: 500 mg Documented by: [id number] Sodium Chloride (Nss 1000ml) 1,000 mls @ 125 mls/hr IV .Q8H PAUL Stop: 07/21/21 19:44 Last Admin: 07/21/21 11:58 Dose: 125 mls/hr Documented by: [id number] Sodium Chloride (Nss 1000ml) 1,000 mls @ 999 mls/hr IV .Q1H1M ONE Stop: 07/21/21 14:26 Last Admin: 07/21/21 13:38 Dose: 999 mls/hr Documented by: [id number] Ioversol (Optiray 320 100ml) 93 ml IV ONCE ONE Stop: 07/21/21 13:06 Last Admin: 07/21/21 12:50 Dose: 93 ml Documented by: [id number] Potassium Chloride (Potassium Chloride Crtab 20 Meq Tabcr) 40 meq PO NOW STA Stop: 07/21/21 14:29 Last Admin: 07/21/21 15:34 Dose: 40 meq Documented by: [id number] Imaging Data Radiologist's Impression: Abdomen/Pelvis CT 07/21/21 11:[address] WITH CONTRAST; CT ABDOMEN AND PELVIS WITH IV CONTRAST ONLY HISTORY: Acute chest and abdominal trauma status post fall fall TECHNIQUE: Multiaxial CT images of the chest, abdomen and pelvis were performed following the IV administration of 93 cc of Optiray. A dose lowering technique was utilized adhering to the principles of ALARA. COMPARISON: CT abdomen and pelvis 02/22/2021, chest CT 10/18/2020, chest radiograph 05/03/2021 FINDINGS: CT CHEST: 1.6 cm right-sided thyroid nodule. No lymphadenopathy identified. The heart is mildly enlarged. Small pericardial effusion. There is no thoracic aortic aneurysm or dissection. Patency of the imaged great vessels. Unremarkable pulmonary artery. Trace pleural effusions. No pneumothorax or overt pulmonary edema. Mild dependent subsegmental bibasilar atelectasis. Airspace opacities of the right upper lobe with surrounding groundglass density percent around a focal 6.2 x 7.4 x 6.1 cm airspace density on image 129. 3 mm solid nodule of the right lung apex on image 61. 3 mm solid nodule of the right upper lobe on image 67. Both of these nodules appear stable from prior. Mild generalized body wall edema. Several subcentimeter bilateral rib lesions (please see bookmarks) appear stable from prior. Subtle acute nondisplaced fracture of the posterolateral left 10th rib. CT ABDOMEN/PELVIS: No pneumatosis or pneumoperitoneum. The spleen is mildly enlarged, 13.2 cm in length. Unremarkable pancreas and right adrenal gland. Unchanged nodular thickening of the left adrenal gland suggestive of hyperplasia with possible underlying adrenal myolipoma measuring 1.9 cm. Distended gallbladder with equivocal sludge versus cholelithiasis. There are a few scattered hypodensities again noted throughout the liver which are too small to characterize measuring up to 6 mm within the left hepatic lobe an approximately 7 mm within the right hepatic lobe. Patency of the hepatic and portal veins. There are a few cysts of the right kidney redemonstrated measuring up to approximately 2 cm. Cortical scarring of the posterior interpolar right kidney. No right-sided hydronephrosis. Left nephrectomy. No mass or lesion identified within the left nephrectomy bed. Moderately distended urinary bladder with wall thickening. Urinary bladder wall trabeculation with small diverticulum along the anterior superior dome of the bladder. Prostamegaly. Atherosclerosis of the aorta. No definite adenopathy. Mild generalized body wall edema with mesenteric edema. No bowel obstruction. Moderate fecal retention. Scattered air-fluid levels are noted throughout the large and small bowel. Hyperdense foci are again noted within the appendix suggestive of retained enteric contrast versus appendicolith. The visualized appendix appears noninflamed.. Degenerative changes of the spine, pelvis and hips. 10 mm anterolisthesis L5 on S1 redemonstrated with chronic L5 pars defects. Ill-defined scattered sclerotic foci of the ribs and right iliac bone redemonstrated. No definite acute fracture identified. IMPRESSION: 1. Acute nondisplaced fracture of the posterolateral left 10th rib. No pneumothorax or acute solid organ injury. 2. Groundglass and airspace opacities of the right upper lobe abutting the fissure are suggestive of pneumonia. Follow-up imaging after treatment course is needed to document resolution. 3. Trace pleural effusions with mild bibasilar atelectasis. 4. Prior left nephrectomy. 5. Prostamegaly with evidence of chronic bladder outlet obstruction. 6. Moderate constipation with large and small bowel air-fluid levels. Correlate clinically to exclude enteritis with diarrheal illness. 7. Additional findings as above. ACT 112: Negative or not required by law. Electronically signed by: Viet Dasilva M.D. 07/21/2021 1:[address] 07/21/21 11:[address] DOSE: 1723.39 mGy.cm HISTORY: fall TECHNIQUE: Multiaxial CT images of the cervical spine were performed and reformatted in the sagittal and coronal plane without the use of contrast. A dose lowering technique was utilized adhering to the principles of ALARA. COMPARISON: Cervical spine CT 11/25/2020. FINDINGS: No fractures within the cervical spine. The C2-C3 facets are fused. There is partial fusion of the C2-C3 vertebral bodies. There is 3 mm of anterolisthesis of C4 on C5 likely due to long-standing degenerative change. Mo derate degenerative disc disease and facet osteoarthritis is again noted. Prevertebral soft tissues and the C1-C2 interval are intact. No pneumothorax. IMPRESSION: No fractures within the cervical spine. ACT 112: Negative or not required by law. Electronically signed by: Rupert Verduzco M.D. 07/21/2021 1:[address] 07/21/21 11:[address] WITH CONTRAST; CT ABDOMEN AND PELVIS WITH IV CONTRAST ONLY HISTORY: Acute chest and abdominal trauma status post fall fall TECHNIQUE: Multiaxial CT images of the chest, abdomen and pelvis were performed following the IV administration of 93 cc of Optiray. A dose lowering technique was utilized adhering to the principles of ALARA. COMPARISON: CT abdomen and pelvis 02/22/2021, chest CT 10/18/2020, chest radiograph 05/03/2021 FINDINGS: CT CHEST: 1.6 cm right-sided thyroid nodule. No lymphadenopathy identified. The heart is mildly enlarged. Small pericardial effusion. There is no thoracic aortic aneurysm or dissection. Patency of the imaged great vessels. Unremarkable pulmonary artery. Trace pleural effusions. No pneumothorax or overt pulmonary edema. Mild dependent subsegmental bibasilar atelectasis. Airspace opacities of the right upper lobe with surrounding groundglass density percent around a focal 6.2 x 7.4 x 6.1 cm airspace density on image 129. 3 mm solid nodule of the right lung apex on image 61. 3 mm solid nodule of the right upper lobe on image 67. Both of these nodules appear stable from prior. Mild generalized body wall edema. Several subcentimeter bilateral rib lesions (please see bookmarks) appear stable from prior. Subtle acute nondisplaced fracture of the posterolateral left 10th rib. CT ABDOMEN/PELVIS: No pneumatosis or pneumoperitoneum. The spleen is mildly enlarged, 13.2 cm in length. Unremarkable pancreas and right adrenal gland. Unchanged nodular thickening of the left adrenal gland suggestive of hyperplasia with possible underlying adrenal myolipoma measuring 1.9 cm. Distended gallbladder with equivo fozia sludge versus cholelithiasis. There are a few scattered hypodensities again noted throughout the liver which are too small to characterize measuring up to 6 mm within the left hepatic lobe an approximately 7 mm within the right hepatic lobe. Patency of the hepatic and portal veins. There are a few cysts of the right kidney redemonstrated measuring up to approximately 2 cm. Cortical scarring of the posterior interpolar right kidney. No right-sided hydronephrosis. Left nephrectomy. No mass or lesion identified within the left nephrectomy bed. Moderately distended urinary bladder with wall thickening. Urinary bladder wall trabeculation with small diverticulum along the anterior superior dome of the bladder. Prostamegaly. Atherosclerosis of the aorta. No definite adenopathy. Mild generalized body wall edema with mesenteric edema. No bowel obstruction. Moderate fecal retention. Scattered air-fluid levels are noted throughout the large and small bowel. Hyperdense foci are again noted within the appendix suggestive of retained enteric contrast versus appendicolith. The visualized appendix appears noninflamed.. Degenerative changes of the spine, pelvis and hips. 10 mm anterolisthesis L5 on S1 redemonstrated with chronic L5 pars defe cts. Ill-defined scattered sclerotic foci of the ribs and right iliac bone redemonstrated. No definite acute fracture identified. IMPRESSION: 1. Acute nondisplaced fracture of the posterolateral left 10th rib. No pneumothorax or acute solid organ injury. 2. Groundglass and airspace opacities of the right upper lobe abutting the fissure are suggestive of pneumonia. Follow-up imaging after treatment course is needed to document resolution. 3. Trace pleural effusions with mild bibasilar atelectasis. 4. Prior left nephrectomy. 5. Prostamegaly with evidence of chronic bladder outlet obstruction. 6. Moderate constipation with large and small bowel air-fluid levels. Correlate clinically to exclude enteritis with diarrheal illness. 7. Additional findings as above. ACT 112: Negative or not required by law. Electronically signed by: Viet Dasilva M.D. 07/21/2021 1:44 PM Chest X-Ray 07/21/21 11:35 XR chest 1V portable HISTORY: 71 years-old Male weakness acute weakness with chest pain COMPARISON: Chest radiograph 05/03/2021 TECHNIQUE: Portable AP view the chest FINDINGS: Cardiac mediastinal and hilar silhouettes are within normal limits. There is a large airspace opacity of the right upper lobe abutting the fissure. This measures over 9 cm. No pneumothorax, pleural effusion or overt pulmonary edema. Degenerative changes of the shoulders and spine. Surgical anchor of the right humeral head. IMPRESSION: Large airspace opacity of the right upper lobe is suggestive of pneumonia. Follow-up imaging after treatment course is recommended to document resolution. ACT 112: Negative or not required by law.r The above report was generated using voice recognition software. It may contain grammatical, syntax or spelling errors. Electronically signed by: Viet Dasilva M.D. 07/21/2021 12:[address] 07/21/21 11:[address] DOSE: HISTORY: fall TECHNIQUE: Multiaxial CT images of the head were performed without the use of intravenous contrast. Automated exposure control was utilized for this study. A dose lowering technique was utilized adhering to the principles of ALARA. Comparison: None. Findings: The paranasal sinuses and mastoid air cells are clear. The calvarium and skull base are intact. There is no mass, hematoma, midline shift, acute infarct. White matter hypodensity is nonspecific but suggestive of microvascular ischemic change. The ventricles and sulci demonstrate mild age-related involutional changes. Impression: No acute intracranial abnormality. Atrophy and microvascular ischemic changes. ACT 112: Negative or not required by law. Electronically signed by: Rupert Verduzco M.D. 07/21/2021 1:02 PM Discharge Plan Visit Data Chief Complaint: Fall Stated Complaint: FALL ED Provider: Hayder Gilmore Discharge Problem: Pneumonia, Anemia, Acute hypotension, Chest wall contusion, Fall Patient Disposition: Admitted As Inpatient Discharge Instructions Interventions: ED Discharge Assessment Last Done: 07/21/21 15:48 Discharge Problem: Pneumonia Qualifiers: Pneumonia type: due to unspecified organism Laterality: right Lung location: unspecified part of lung Qualified Code(s): J18.9 - Pneumonia, unspecified organism Anemia Qualifiers: Anemia type: unspecified type Qualified Code(s): D64.9 - Anemia, unspecified Chest wall contusion Qualifiers: Encounter type: initial encounter Laterality: left Qualified Code(s): S20.212A - Contusion of left front wall of thorax, initial encounter Fall Qualifiers: Encounter type: initial encounter Qualified Code(s): W19.XXXA - Unspecified fall, initial encounter
[2021-07-21] MEDS ORDERED: SODIUM CHLORIDE 0.9% 1000ML 1,000 ML IV SCH (11:45)
[2021-07-21 11:48] LABS: Basophils # (auto) 0.01 K/uL (0-0.2); Basophils % (auto) 0.1 %; Eosinophils # (auto) 0.01 K/uL (0-0.5); Eosinophils % (auto) 0.1 %; Hematocrit (blood only) 27.7 % (42-52); Hemoglobin 9.2 g/dL (14.0-18.0); Immature Granulocytes # (auto) 0.03 K/uL (0.00-0.02); Immature Granulocytes % (auto) 0.2 %; Lymphocytes # (auto) 0.87 K/uL (1.2-3.4); Lymphocytes % (auto) 7.2 %; Mean Corpuscular Hemoglobin 29.6 pg (25-34); Mean Corpuscular Hgb Conc 33.2 g/dL (32-36); Mean Corpuscular Volume 89.1 fL (80-100); Mean Platelet Volume 9.5 fL (7.4-10.4); Monocytes # (auto) 0.54 K/uL (0.11-0.59); Monocytes % (auto) 4.4 %; Neutrophils # (auto) 10.68 K/uL (1.4-6.5); Platelet Count 201 K/uL (130-400); RDW Coefficient of Variation 14.2 % (11.5-14.5); RDW Standard Deviation 46.9 fL (36.4-46.3); Red Blood Count 3.11 M/uL (4.7-6.1); White Blood Count 12.14 K/uL (4.8-10.8)
[2021-07-21 12:01] LABS: INR 1.1 (0.9-1.1); Partial Thromboplastin Ratio 1.2; Partial Thromboplastin Time 31.9 Seconds (21.0-31.0); Prothrombin Time 11.2 Seconds (9.0-12.0)
--- NOTE | 2021-07-21 12:02 | XRay Report ---
XR chest 1V portable HISTORY: 71 years-old Male weakness acute weakness with chest pain COMPARISON: Chest radiograph 05/03/2021 TECHNIQUE: Portable AP view the chest FINDINGS: Cardiac mediastinal and hilar silhouettes are within normal limits. There is a large airspace opacity of the right upper lobe abutting the fissure. This measures over 9 cm. No pneumothorax, pleural effu eligio or overt pulmonary edema. Degenerative changes of the shoulders and spine. Surgical anchor of th e right humeral head. IMPRESSION: Large airspace opacity of the right upper lobe is suggestive of pneumonia. Follow-up imag ing after treatment course is recommended to document resolution. ACT 112: Negative or not required by law.r The above report was generated using voice recognition software. It may contain grammatical, syntax o r spelling errors. Electronically signed by: Viet Dasilva M.D. 07/21/2021 12:01 PM
[2021-07-21 12:16] LABS: Troponin I < 0.03 ng/ml (0-0.04)
[2021-07-21 12:18] LABS: Alanine Aminotransferase 17 U/L (7-52); Albumin Globulin Ratio 1.4 (0.9-2); Albumin Level 3.2 gm/dl (3.4-5.0); Alkaline Phosphatase 41 U/L (34-104); Anion Gap 7 (3-11); Aspartate Aminotransferase 15 U/L (13-39); Bilirubin,Total 0.5 mg/dl (0.2-1.0); Blood Urea Nitrogen 25 mg/dl (6-23); Calcium 8.5 mg/dl (8.5-10.1); Carbon Dioxide 24 mmol/L (21-32); Chloride 106 mmol/L (98-107); Est GFR (African American) 66.7 ml/min; Est GFR (Non-African American) 57.6 ml/min; Globulin 2.3 gm/dl (2.5-4.0); Glucose 141 mg/dl (70-99(Fasting)); Magnesium 2.1 mg/dl (1.7-2.4); Potassium 3.4 mmol/L (3.5-5.1); Sodium 137 mmol/L (136-145); Total Protein 5.5 gm/dl (6.0-8.3)
[2021-07-21 13:00] LABS: Acetaminophen 6 ug/ml (10-30); Salicylate < 3.0 mg/dl (3.0-30)
--- NOTE | 2021-07-21 13:04 | CT Scan Report ---
HEAD CT NONCONTRAST CT DOSE: HISTORY: fall TECHNIQUE: Multiaxial CT images of the head were performed without the use of intravenous contrast. A utomated exposure control was utilized for this study. A dose lowering technique was utilized adheri ng to the principles of ALARA. Comparison: None. Findings: The paranasal sinuses and mastoid air cells are clear. The calvarium and skull base are int act. There is no mass, hematoma, midline shift, acute infarct. White matter hypodensity is nonspecifi c but suggestive of microvascular ischemic change. The ventricles and sulci demonstrate mild age-rela vicente involutional changes. Impression: No acute intracranial abnormality. Atrophy and microvascular ischemic changes. ACT 112: Negative or not required by law. Electronically signed by: Rupert Verduzco M.D. 07/21/2021 1:02 PM
[2021-07-21] MEDS ORDERED: OPTIRAY 320 100ml IV ONE (13:05)
--- NOTE | 2021-07-21 13:08 | CT Scan Report ---
CERVICAL SPINE CT CT DOSE: 1723.39 mGy.cm HISTORY: fall TECHNIQUE: Multiaxial CT images of the cervical spine were performed and reformatted in the sagittal and coronal plane without the use of contrast. A dose lowering technique was utilized adhering to th e principles of ALARA. COMPARISON: Cervical spine CT 11/25/2020. FINDINGS: No fractures within the cervical spine. The C2-C3 facets are fused. There is partial fusion of the C2-C3 vertebral bodies. There is 3 mm of anterolisthesis of C4 on C5 likely due to long-stand ing degenerative change. Moderate degenerative disc disease and facet osteoarthritis is again noted. Prevertebral soft tissues and the C1-C2 interval are intact. No pneumothorax. IMPRESSION: No fractures within the cervical spine. ACT 112: Negative or not required by law. Electronically signed by: Rupert Verduzco M.D. 07/21/2021 1:06 PM
[2021-07-21] MEDS ORDERED: SODIUM CHLORIDE 0.9% 1000ML 1,000 ML IV ONE (13:26)
--- NOTE | 2021-07-21 13:45 | CT Scan Report ---
CHEST CT WITH CONTRAST; CT ABDOMEN AND PELVIS WITH IV CONTRAST ONLY HISTORY: Acute chest and abdominal trauma status post fall fall TECHNIQUE: Multiaxial CT images of the chest, abdomen and pelvis were performed following the IV admi nistration of 93 cc of Optiray. A dose lowering technique was utilized adhering to the principles o f ALARA. COMPARISON: CT abdomen and pelvis 02/22/2021, chest CT 10/18/2020, chest radiograph 05/03/2021 FINDINGS: CT CHEST: 1.6 cm right-sided thyroid nodule. No lymphadenopathy identified. The heart is mildly enlarged. Small pericardial effusion. There is no thoracic aortic aneurysm or dissection. Patency of the imaged grea t vessels. Unremarkable pulmonary artery. Trace pleural effusions. No pneumothorax or overt pulmonary edema. Mild dependent subsegmental bibasilar atelectasis. Airspace opacities of the right upper lobe with surrounding groundglass density percent around a focal 6.2 x 7.4 x 6.1 cm airspace density on i mage 129. 3 mm solid nodule of the right lung apex on image 61. 3 mm solid nodule of the right upper lobe on image 67. Both of these nodules appear stable from prior. Mild generalized body wall edema. Several subcentimeter bilateral rib lesions (please see bookmarks) appear stable from prior. Subtle acute nondisplaced fracture of the posterolateral left 10th rib. CT ABDOMEN/PELVIS: No pneumatosis or pneumoperitoneum. The spleen is mildly enlarged, 13.2 cm in length. Unremarkable pa ncreas and right adrenal gland. Unchanged nodular thickening of the left adrenal gland suggestive of hyperplasia with possible underlying adrenal myolipoma measuring 1.9 cm. Distended gallbladder with e quivocal sludge versus cholelithiasis. There are a few scattered hypodensities again noted throughout the liver which are too small to characterize measuring up to 6 mm within the left hepatic lobe an a pproximately 7 mm within the right hepatic lobe. Patency of the hepatic and portal veins. There are a few cysts of the right kidney redemonstrated measuring up to approximately 2 cm. Cortical scarring of the posterior interpolar right kidney. No right-sided hydronephrosis. Left nephrectomy. No mass or lesion identified within the left nephrectomy bed. Moderately distended urinary bladder wi th wall thickening. Urinary bladder wall trabeculation with small diverticulum along the anterior sup erior dome of the bladder. Prostamegaly. Atherosclerosis of the aorta. No definite adenopathy. Mild generalized body wall edema with mesenteric edema. No bowel obstruction. Moderate fecal retentio n. Scattered air-fluid levels are noted throughout the large and small bowel. Hyperdense foci are aga in noted within the appendix suggestive of retained enteric contrast versus appendicolith. The visual ized appendix appears noninflamed.. Degenerative changes of the spine, pelvis and hips. 10 mm anterol isthesis L5 on S1 redemonstrated with chronic L5 pars defects. Ill-defined scattered sclerotic foci o f the ribs and right iliac bone redemonstrated. No definite acute fracture identified. IMPRESSION: 1. Acute nondisplaced fracture of the posterolateral left 10th rib. No pneumothorax or acute solid or radha injury. 2. Groundglass and airspace opacities of the right upper lobe abutting the fissure are suggestive of pneumonia. Follow-up imaging after treatment course is needed to document resolution. 3. Trace pleural effusions with mild bibasilar atelectasis. 4. Prior left nephrectomy. 5. Prostamegaly with evidence of chronic bladder outlet obstruction. 6. Moderate constipation with large and small bowel air-fluid levels. Correlate clinically to exclude enteritis with diarrheal illness. 7. Additional findings as above. ACT 112: Negative or not required by law. Electronically signed by: Viet Dasilva M.D. 07/21/2021 1:44 PM
--- NOTE | 2021-07-21 13:47 | Electrocardiogram Report ---
Test Reason : Blood Pressure : / mmHG Vent. Rate : 073 BPM Atrial Rate : 073 BPM P-R Int : 152 ms QRS Dur : 130 ms QT Int : 420 ms P-R-T Axes : 047 000 008 degrees QTc Int : 462 ms Poor data quality, interpretation may be adversely affected Normal sinus rhythm Possible Left atrial enlargement Right bundle branch block Abnormal ECG When compared with ECG of 03-MAY-2021 17:54, Nonspecific T wave abnormality now evident in Inferior leads QT has lengthened Confirmed by Avinash Orozco ([id number]) on 07/21/2021 1:47:14 PM Referred By: Confirmed By:Favian Orozco
--- NOTE | 2021-07-21 14:26 | History & Physical Report ---
Date of Service July 21, 2021 Assessment & Plan (1) Pneumonia: Plan: Likely representing CAP- however following COVID 19 obtain sputum and blood culture - RUL with opacitiy- sputum sample obtained - WBC 12, with elevated NLR 5:1 - Confusion - CURB 65- 3 - Pleural effusion chronic- follow - Cefepime and Azithromycin for coverage - Legionella and Aspergillus sent - Blood culture and PCT pending - not requiring oxygen -recommend following CXR to resolution in 4-6 weeks (2) Anemia: Plan: Recent diagnosis per him and partner- further work up pending outside provider - HGB 9 on admission will trend - Normocytic normochromic at this time - Folic acid in am- Iron panel in am - no acute blood loss noted or reported (3) Rib fracture: Plan: As above (4) Chest wall contusion: Plan: WIth rib fracture following dog pulling him into tree - no hemothroax noted - plueral effusion chronic - Lidoderm patch and Tylenol for pain (5) Benign prostatic hyperplasia with urinary obstruction and other lower urinary tract symptoms: Plan: Follows with urology - has been having increasing frequency - PSA 7.1 in December - Consider adding agent to assist with symptoms- defer to rounding team (6) History of elevated prostate specific antigen (PSA): Plan: As above (7) Schizophrenia: Plan: Schizophrenia and Bipolar per chart review - symptoms appear controlled - Continue Escitalopram, Ativan, and Latuda (8) Clear cell carcinoma of left kidney: Plan: with Left Nephrectomy- 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 Markel Haro - No metastatic disease noted (9) Diarrhea: Plan: Acute on chronic likely related to post COVID enteritis - follow symptoms and fluid volume status (10) CKD (chronic kidney disease), stage III: Plan: Follow fluid volume status and renal function - avoid nephrotoxic medications - BP controlled (11) Pericardial effusion: Plan: Small, noted on CT chest Check echocardiogram (12) Hypertension: Plan: Blood pressures controlled Continue diltiazem, HCTZ, lisinopril (13) Hypothyroidism: Plan: TSH normal continue home LT4 History of Present Illness Chief Complaint: fall Primary Care Provider: Sung Gilbert MD 71 YOM with past medical history of: Clear cell carcinoma of the kidney with left nephrectomy (2019), lung nodules, COPD, schizophrenia, anxiety, bi-polar, HLD, Depression, Hypothyroidism, iron deficiency anemia, BPH with LUTS, dizziness, COVID 19 (06/21). Patient comes to the emergency room today for complaints of being pulled over by a dog he was walking and getting knocked into a tree and then falling down on the ground, this resulted in him not being able to get up and having left lateral sided chest pain. During his workup to rule out any acute fracture/injury it was noted on his chest CXR to have opacity on the right upper lobe. Overall the patient states that he has not been feeling well over the past week with complaints of cough, body aches, subjective fevers, and generalized weakness. He and his partner have felt ill over the weekend with the above symptoms. He is un-unsure what he is coughing up because he has not been expectorating this out but does note that he is bringing up more sputum than normal. Also endorses difficulty remembering his medications over the past few days and unsure what he took this morning. The patient also has been experiencing diarrhea over the past 3 weeks in the night time which has led him to stop taking his iron supplementation routinely because he thought this may have been contributing to this. His lab work was notable for anemia, elevated WBC count with increase in NLR and anemia to 9.2. His partner and him note that this was noted a few weeks back and is undergoing further work up with his oncologist. He follows with Dr. Markel Haro. The do not endorse any change in color of stools, abdominal pain or hematemesis. Patient will be admitted for Pneumonia treatment, follow his laboratory response and blood/sputum cultures. Provide pain relief for his rib fracture and will follow up on his aenemia labs. In the EMD the patient had CXR, CT of the chest and abd/pelvis/Cervical done following his being pulled into tree and ground with dog. These were NOT notable for any acute cervical trauma/acute bone fracture/pelvis fracture, but did note left sided rib fracture and enteritis. Allergies Allergy/AdvReac Type Severity Reaction Status Date / Time Penicillins Allergy Unknown UNKNOWN Verified 07/21/21 11:45 REACTION - HAPPENED A CHILD oxycodone [From OxyContin] AdvReac Intermediate Fainting Unverified 07/21/21 11:45 Home Medications Medication Instructions Recorded Confirmed Type clozapine 25 mg tablet 25 mg PO HS 12/17/18 07/21/21 History clozapine 50 mg tablet 50 mg PO HS 12/17/18 07/21/21 History diltiazem HCl 360 mg 360 mg PO QAM 12/17/18 07/21/21 History tablet,extended release 24 hr levothyroxine 75 mcg tablet 75 mcg PO QAM 12/17/18 07/21/21 History lorazepam 1 mg tablet 1 mg PO QPM 12/17/18 07/21/21 History lurasidone 80 mg tablet (Latuda) 80 mg PO HS 12/17/18 07/21/21 History multivitamin 1 tab PO QAM 12/17/18 07/21/21 History polyethylene glycol 3350 17 17 g PO BID 12/17/18 07/21/21 History gram/dose oral powder vitamin B complex 1 tab PO QAM 12/17/18 07/21/21 History glucosamine sulf dipot 550 cap PO DAILY 01/25/19 07/21/21 History chlr,msm,chond 550 mg-C 30 mg-bel 1 mg capsule (Glucosamine Chondroitin) lisinopril 5 mg tablet 7.5 mg PO QAM 11/25/20 07/21/21 History lurasidone 20 mg tablet (Latuda) 20 mg PO HS 11/25/20 07/21/21 History escitalopram oxalate 20 mg tablet 20 mg PO DAILY 05/03/21 07/21/21 History hydrochlorothiazide 12.5 mg tablet 12.5 mg PO DAILY 05/03/21 07/21/21 History lorazepam 1 mg tablet 1 mg PO DAILY PRN 05/03/21 07/21/21 History ciclopirox 0.77 % topical cream 1 applic TOPICAL BID 07/21/21 07/21/21 History deutetrabenazine 12 mg tablet 12 mg PO BID 07/21/21 07/21/21 History (Austedo) Past Med/Surg History Medical History (Updated 07/21/21 @ 20:39 by Niurka Solano MD) Anxiety Bipolar disorder BPH (benign prostatic hyperplasia) Chronic obstructive pulmonary disease controlled Depression Hyperlipidemia HX OF Hypertension Hypothyroidism Kidney tumor LEFT Osteoarthritis Peripheral neuropathy Surgical History H/O prostate biopsy History of bronchoscopy History of colonoscopy History of herniorrhaphy INGUINAL History of tooth extraction Family History Other No significant family history Social History Smoking Status: Former smoker Second Hand Exposure: No; Hx Alcohol Use: Yes Alcohol type: wine Hx Substance Use: No Preferred Language: Emir[place] Communication Ability: Effective Orthopedic Rn Required: No Beliefs That Will Affect Care: None marital status: Single Current Living Situation: Spouse current occupational status: retired Feels Safe at Home: Yes Safety Concerns: Feels Safe At This Time Assistive Devices: Denture - Upper and Glasses Review of Systems Review of Systems: REVIEW OF SYSTEMS: Constitutional: (+) fever, sweats or chills Eyes: No diplopia, no worsening or blurred vision ENT: normal hearing, no trouble swallowing Respiratory: (+) cough, sputum, dyspnea at rest or on exertion Cardiovascular: No chest pain, tightness or palpitations Abdomen: (+) diarrhea, constipation, No pain, nausea, vomiting, Musculoskeletal: No joint pain, calf pain, swelling Neurologic: No weakness, numbness/tingling, or balance problems Psychiatric: (+) anxiety or depression bipolar Skin: No rash or itch Physical Exam Physical Exam: PHYSICAL EXAM: General: awake, alert, no apparent distress Head: Normocephalic, atraumatic ENT: PERRL, EOMI, no pharyngeal exudate, mucous membranes moist Neuro: AAO x 3, speech clear and appropriate, strength intact bilaterally 5/5, sensation intact and equal all extremities and dermatomes, no pronator drift Chest: equal rise and fall of the chest, no accessory muscle use, no heaves or thrills, scattered rhonchi right > left, on room air Cardiac: Regular rate and rhythm, telemetry reviewed, skin warm dry, cap refill <3 seconds, peripheral pulses +2 no JVD, no murmur, no JVD, no edema GI: NABS x 4 quadrants, softly distended, nontender to palpation, no rebound, guarding or tenderness : Spontaneously voiding, no pain, no CVA tenderness, Extremities: Normal inspection, no peripheral edema or erythema, calfs nontender to palpation Psych: Normal mood and affect Skin: no rash or erythema Results & Data Results & Data ([facility]) Vital Signs (Past 12 Hours) Vital Signs Temp Pulse Pulse Resp BP BP Pulse Ox 07/21/21 13:36 66 18 115/64 96 07/21/21 10:54 36.9 C 83 18 115/64 97 Laboratory Results Abnormal lab results 07/21/21 07/21/21 07/21/21 Range/Units 11:38 11:38 11:38 WBC 12.14 H (4.8-10.8) K/uL RBC 3.11 L (4.7-6.1) M/uL Hgb 9.2 L (14.0-18.0) g/dL Hct 27.7 L (42-52) % RDW Std Deviation 46.9 H (36.4-46.3) fL Neut # (Auto) 10.68 H (1.4-6.5) K/uL Lymph # (Auto) 0.87 L (1.2-3.4) K/uL Immature Gran # (Auto) 0.03 H (0.00-0.02) K/uL APTT 31.9 H (21.0-31.0) Seconds Potassium 3.4 L (3.5-5.1) mmol/L BUN 25 H (6-23) mg/dl Glucose 141 H (70-99(Fasting)) mg/dl Total Protein 5.5 L (6.0-8.3) gm/dl Albumin 3.2 L (3.4-5.0) gm/dl Globulin 2.3 L (2.5-4.0) gm/dl Salicylates (3.0-30) mg/dl Acetaminophen (10-30) ug/ml 07/21/21 Range/Units 11:59 WBC (4.8-10.8) K/uL RBC (4.7-6.1) M/uL Hgb (14.0-18.0) g/dL Hct (42-52) % RDW Std Deviation (36.4-46.3) fL Neut # (Auto) (1.4-6.5) K/uL Lymph # (Auto) (1.2-3.4) K/uL Immature Gran # (Auto) (0.00-0.02) K/uL APTT (21.0-31.0) Seconds Potassium (3.5-5.1) mmol/L BUN (6-23) mg/dl Glucose (70-99(Fasting)) mg/dl Total Protein (6.0-8.3) gm/dl Albumin (3.4-5.0) gm/dl Globulin (2.5-4.0) gm/dl Salicylates < 3.0 L (3.0-30) mg/dl Acetaminophen 6 L (10-30) ug/ml Diagnostic Findings Abdomen/Pelvis CT 07/21/21 11:[address] WITH CONTRAST; CT ABDOMEN AND PELVIS WITH IV CONTRAST ONLY HISTORY: Acute chest and abdominal trauma status post fall fall TECHNIQUE: Multiaxial CT images of the chest, abdomen and pelvis were performed following the IV administration of 93 cc of Optiray. A dose lowering technique was utilized adhering to the principles of ALARA. COMPARISON: CT abdomen and pelvis 02/22/2021, chest CT 10/18/2020, chest radiograph 05/03/2021 FINDINGS: CT CHEST: 1.6 cm right-sided thyroid nodule. No lymphadenopathy identified. The heart is mildly enlarged. Small pericardial effusion. There is no thoracic aortic aneurysm or dissection. Patency of the imaged great vessels. Unremarkable pulmonary artery. Trace pleural effusions. No pneumothorax or overt pulmonary edema. Mild dependent subsegmental bibasilar atelectasis. Airspace opacities of the right upper lobe with surrounding groundglass density percent around a focal 6.2 x 7.4 x 6.1 cm airspace density on image 129. 3 mm solid nodule of the right lung apex on image 61. 3 mm solid nodule of the right upper lobe on image 67. Both of these nodules appear stable from prior. Mild generalized body wall edema. Several subcentimeter bilateral rib lesions (please see bookmarks) appear stable from prior. Subtle acute nondisplaced fracture of the posterolateral left 10th rib. CT ABDOMEN/PELVIS: No pneumatosis or pneumoperitoneum. The spleen is mildly enlarged, 13.2 cm in length. Unremarkable pancreas and right adrenal gland. Unchanged nodular thickening of the left adrenal gland suggestive of hyperplasia with possible underlying adrenal myolipoma measuring 1.9 cm. Distended gallbladder with equivocal sludge versus cholelithiasis. There are a few scattered hypodensities again noted throughout the liver which are too small to characterize measuring up to 6 mm within the left hepatic lobe an approximately 7 mm within the right hepatic lobe. Patency of the hepatic and portal veins. There are a few cysts of the right kidney redemonstrated measuring up to approximately 2 cm. Cortical scarring of the posterior interpolar right kidney. No right-sided hydronephrosis. Left nephrectomy. No mass or lesion identified within the left nephrectomy bed. Moderately distended urinary bladder with wall thickening. Urinary bladder wall trabeculation with small diverticulum along the anterior superior dome of the bladder. Prostamegaly. Atherosclerosis of the aorta. No definite adenopathy. Mild generalized body wall edema with mesenteric edema. No bowel obstruction. Moderate fecal retention. Scattered air-fluid levels are noted throughout the large and small bowel. Hyperdense foci are again noted within the appendix suggestive of retained enteric contrast versus appendicolith. The visualized appendix appears noninflamed.. Degenerative changes of the spine, pelvis and hips. 10 mm anterolisthesis L5 on S1 redemonstrated with chronic L5 pars defects. Ill-defined scattered sclerotic foci of the ribs and right iliac bone redemonstrated. No definite acute fracture identified. IMPRESSION: 1. Acute nondisplaced fracture of the posterolateral left 10th rib. No pneumothorax or acute solid organ injury. 2. Groundglass and airspace opacities of the right upper lobe abutting the fissure are suggestive of pneumonia. Follow-up imaging after treatment course is needed to document resolution. 3. Trace pleural effusions with mild bibasilar atelectasis. 4. Prior left nephrectomy. 5. Prostamegaly with evidence of chronic bladder outlet obstruction. 6. Moderate constipation with large and small bowel air-fluid levels. Correlate clinically to exclude enteritis with diarrheal illness. 7. Additional findings as above. ACT 112: Negative or not required by law. Electronically signed by: Viet Dasilva M.D. 07/21/2021 1:[address] 07/21/21 11:[address] DOSE: 1723.39 mGy.cm HISTORY: fall TECHNIQUE: Multiaxial CT images of the cervical spine were performed and reformatted in the sagittal and coronal plane without the use of contrast. A dose lowering technique was utilized adhering to the principles of ALARA. COMPARISON: Cervical spine CT 11/25/2020. FINDINGS: No fractures within the cervical spine. The C2-C3 facets are fused. There is partial fusion of the C2-C3 vertebral bodies. There is 3 mm of anterolisthesis of C4 on C5 likely due to long-standing degenerative change. Moderate degenerative disc disease and facet osteoarthritis is again noted. Prevertebral soft tissues and the C1-C2 interval are intact. No pneumothorax. IMPRESSION: No fractures within the cervical spine. ACT 112: Negative or not required by law. Electronically signed by: Rupert Verduzco M.D. 07/21/2021 1:[address] 07/21/21 11:[address] WITH CONTRAST; CT ABDOMEN AND PELVIS WITH IV CONTRAST ONLY HISTORY: Acute chest and abdominal trauma status post fall fall TECHNIQUE: Multiaxial CT images of the chest, abdomen and pelvis were performed following the IV administration of 93 cc of Optiray. A dose lowering technique was utilized adhering to the principles of ALARA. COMPARISON: CT abdomen and pelvis 02/22/2021, chest CT 10/18/2020, chest radiograph 05/03/2021 FINDINGS: CT CHEST: 1.6 cm right-sided thyroid nodule. No lymphadenopathy identified. The heart is mildly enlarged. Small pericardial effusion. There is no thoracic aortic aneurysm or dissection. Patency of the imaged great vessels. Unremarkable pulmonary artery. Trace pleural effusions. No pneumothorax or overt pulmonary edema. Mild dependent subsegmental bibasilar atelectasis. Airspace opacities of the right upper lobe with surrounding groundglass density percent around a focal 6.2 x 7.4 x 6.1 cm airspace density on image 129. 3 mm solid nodule of the right lung apex on image 61. 3 mm solid nodule of the right upper lobe on image 67. Both of these nodules appear stable from prior. Mild generalized body wall edema. Several subcentimeter bilateral rib lesions (please see bookmarks) appear stable from prior. Subtle acute nondisplaced fracture of the posterolateral left 10th rib. CT ABDOMEN/PELVIS: No pneumatosis or pneumoperitoneum. The spleen is mildly enlarged, 13.2 cm in length. Unremarkable pancreas and right adrenal gland. Unchanged nodular thickening of the left adrenal gland suggestive of hyperplasia with possible underlying adrenal myolipoma measuring 1.9 cm. Distended gallbladder with equivocal sludge versus cholelithiasis. There are a few scattered hypodensities again noted throughout the liver which are too small to characterize measuring up to 6 mm within the left hepatic lobe an approximately 7 mm within the right hepatic lobe. Patency of the hepatic and portal veins. There are a few cysts of the right kidney redemonstrated measuring up to approximately 2 cm. Cortical scarring of the posterior interpolar right kidney. No right-sided hydronephrosis. Left nephrectomy. No mass or lesion identified within the left nephrectomy bed. Moderately distended urinary bladder with wall thickening. Urinary bladder wall trabeculation with small diverticulum along the anterior superior dome of the bladder. Prostamegaly. Atherosclerosis of the aorta. No definite adenopathy. Mild generalized body wall edema with mesenteric edema. No bowel obstruction. Moderate fecal retention. Scattered air-fluid levels are noted throughout the large and small bowel. Hyperdense foci are again noted within the appendix suggestive of retained enteric contrast versus appendicolith. The visualized appendix appears noninflamed.. Degenerative changes of the spine, pelvis and hips. 10 mm anterolisthesis L5 on S1 redemonstrated with chronic L5 pars defects. Ill-defined scattered sclerotic foci of the ribs and right iliac bone redemonstrated. No definite acute fracture identified. IMPRESSION: 1. Acute nondisplaced fracture of the posterolateral left 10th rib. No pneumotho rax or acute solid organ injury. 2. Groundglass and airspace opacities of the right upper lobe abutting the fissure are suggestive of pneumonia. Follow-up imaging after treatment course is needed to document resolution. 3. Trace pleural effusions with mild bibasilar atelectasis. 4. Prior left nephrectomy. 5. Prostamegaly with evidence of chronic bladder outlet obstruction. 6. Moderate constipation with large and small bowel air-fluid levels. Correlate clinically to exclude enteritis with diarrheal illness. 7. Additional findings as above. ACT 112: Negative or not required by law. Electronically signed by: Viet Dasilva M.D. 07/21/2021 1:44 PM Chest X-Ray 07/21/21 11:35 XR chest 1V portable HISTORY: 71 years-old Male weakness acute weakness with chest pain COMPARISON: Chest radiograph 05/03/2021 TECHNIQUE: Portable AP view the chest FINDINGS: Cardiac mediastinal and hilar silhouettes are within normal limits. There is a large airspace opacity of the right upper lobe abutting the fissure. This measures over 9 cm. No pneumothorax, pleural effusion or overt pulmonary edema. Degenerative changes of the shoulders and spine. Surgical anchor of the right humeral head. IMPRESSION: Large airspace opacity of the right upper lobe is suggestive of pneumonia. Follow-up imaging after treatment course is recommended to document resolution. ACT 112: Negative or not required by law.r The above report was generated using voice recognition software. It may contain grammatical, syntax or spelling errors. Electronically signed by: Viet Dasilva M.D. 07/21/2021 12:[address] 07/21/21 11:[address] DOSE: HISTORY: fall TECHNIQUE: Multiaxial CT images of the head were performed without the use of intravenous contrast. Automated exposure control was utilized for this study. A dose lowering technique was utilized adhering to the principles of ALARA. Comparison: None. Findings: The paranasal sinuses and mastoid air cells are clear. The calvarium and skull base are intact. There is no mass, hematoma, midline shift, acute infarct. White matter hypodensity is nonspecific but suggestive of microvascular ischemic change. The ventricles and sulci demonstrate mild age-related involutional changes. Impression: No acute intracranial abnormality. Atrophy and microvascular ischemic changes. ACT 112: Negative or not required by law. Electronically signed by: Rupert Verduzco M.D. 07/21/2021 1:02 PM Medications Administered Home Medications clozapine 25 mg tablet 25 mg PO HS 12/17/18 [History Confirmed 07/21/21] clozapine 50 mg tablet 50 mg PO HS 12/17/18 [History Confirmed 07/21/21] diltiazem HCl 360 mg tablet,extended release 24 hr 360 mg PO QAM 12/17/18 [History Confirmed 07/21/21] levothyroxine 75 mcg tablet 75 mcg PO QAM 12/17/18 [History Confirmed 07/21/21] lorazepam 1 mg tablet 1 mg PO QPM 12/17/18 [History Confirmed 07/21/21] lurasidone 80 mg tablet (Latuda) 80 mg PO HS 12/17/18 [History Confirmed 07/21/21] multivitamin 1 tab PO QAM 12/17/18 [History Confirmed 07/21/21] polyethylene glycol 3350 17 gram/dose oral powder 17 g PO BID 12/17/18 [History Confirmed 07/21/21] vitamin B complex 1 tab PO QAM 12/17/18 [History Confirmed 07/21/21] glucosamine sulf dipot chlr,msm,chond 550 mg-C 30 mg-bel 1 mg capsule (Glucosamine Chondroitin) 550 cap PO DAILY 01/25/19 [History Confirmed 07/21/21] lisinopril 5 mg tablet 7.5 mg PO QAM 11/25/20 [History Confirmed 07/21/21] lurasidone 20 mg tablet (Latuda) 20 mg PO HS 11/25/20 [History Confirmed 07/21/21] escitalopram oxalate 20 mg tablet 20 mg PO DAILY 05/03/21 [History Confirmed 07/21/21] hydrochlorothiazide 12.5 mg tablet 12.5 mg PO DAILY 05/03/21 [History Confirmed 07/21/21] lorazepam 1 mg tablet 1 mg PO DAILY PRN 05/03/21 [History Confirmed 07/21/21] ciclopirox 0.77 % topical cream 1 applic TOPICAL BID 07/21/21 [History Confirmed 07/21/21] deutetrabenazine 12 mg tablet (Austedo) 12 mg PO BID 07/21/21 [History Confirmed 07/21/21] Active Medications Azithromycin (Azithromycin 250 Mg Tab) 500 mg PO NOW ONE Stop: 07/21/21 14:52 Sodium Chloride (Nss 1000ml) 1,000 mls @ 125 mls/hr IV .Q8H [facility] Stop: 07/21/21 19:44 Last Admin: 07/21/21 11:58 Dose: 125 mls/hr Documented by: Cefepime HCl 1,000 mg/ Syringe 11.3 mls @ 5.5 mls/min IV NOW STA; Protocol Stop: 07/21/21 14:53 Sodium Chloride (Nss 1000ml) 1,000 mls @ 125 mls/hr IV .Q8H [facility] Stop: 07/21/21 19:44 Last Admin: 07/21/21 11:58 Dose: 125 mls/hr Documented by: [id number] Discontinued Medications Sodium Chloride (Nss 1000ml) 1,000 mls @ 999 mls/hr IV .Q1H1M ONE Stop: 07/21/21 14:26 Last Admin: 07/21/21 13:38 Dose: 999 mls/hr Documented by: [id number] Ioversol (Optiray 320 100ml) 93 ml IV ONCE ONE Stop: 07/21/21 13:06 Last Admin: 07/21/21 12:50 Dose: 93 ml Documented by: [id number] ECG Additional Comments: Normal sinus rhythm Possible Left atrial enlargement Right bundle branch block Abnormal ECG When compared with ECG of 03-MAY-2021 17:54, Nonspecific T wave abnormality now evident in Inferior leads QT has lengthened Code Status & VTE Plan Code Status CODE: FULL VTE: SCDS, Lovenox 40mg sub q q 24 Supervising Physician Co-Signing Physician Notes TIRE RECAPPER Supervision note: I have personally seen and examined the patient and discussed and verified the lund points of the history and physical along with the plan with COSME Rodriguez with the following exceptions and/or additions: This patient is a 71-year-old male with history of bipolar disorder with psychotic features, HTN, hypothyroidism, and recent Covid-19, who presents with some recent gait instability and a fall after being pulled by a dog today with trauma. He was found to have a left rib fracture, and a right upper lobe pneumonia on [place] CT. He has been coughing up sputum, did report some sweats and chills to me. Does have pain in the left rib area. Also with incontinence to loose stool but he typically has loose stools because he takes 5 capfuls of MiraLAX every morning. In the ER, vitals were stable and he was not hypoxic. History and ROS reviewed as above Vitals reviewed Gen: AAOx3, NAD HEENT: Anicteric sclerae, EOMI, frequent tongue thrusting CV: RRR no mgr nl S1S2 Pulm: Crackles at bases bilaterally, no wheezes or rhonchi Abd: +BS soft NT with mild protuberance,no masses or hernias Ext: No edema, 2+ DP pulses Skin: No rashes, warm/dry Neuro: Full strength throughout Labs and rads reviewed ECG reviewed 71-year-old male here with recent Covid-19 and now with some weakness, ambulatory dysfunction, and a fall after being pulled by a dog on a leash resulting in left rib fracture. Found to have right upper lobe pneumonia on CT chest and small pericardial effusion. He is actually fairly stable vital signs lloyd We will admit for IV antibiotics for pneumonia, further evaluation of pericardial effusion with echocardiogram Iron studies came back with undetectable iron-we will order IV Venofer for the morning We will reduce his MiraLAX to twice daily for now down from 5 capfuls a day given his ongoing diarrhea. PG Care Time/CCT Total # of Minutes Spent Total Time Spent with Patient: Total time spent is greater than 50% in coordination of care (as documented) at patient's floor/unit and/or counseling patient: Coding Level of Care Code 96896 Initial Inpt Care Lvl 3 Diagnoses Pneumonia J18.9 Laterality: right Lung location: unspecified part of lung Pneumonia type: due to unspecified organism Anemia D64.9 Anemia type: unspecified type Chest wall contusion S20.212A Encounter type: initial encounter Laterality: left Benign prostatic hyperplasia with urinary obstruction and other lower urinary tract symptoms N40.1; N13.8 History of elevated prostate specific antigen (PSA) Z87.898 Schizophrenia F20.9 Clear cell carcinoma of left kidney C64.2 Diarrhea R19.7 Rib fracture S22.39XA CKD (chronic kidney disease), stage III N18.30 Pericardial effusion I31.3 Hypertension I10 Hypothyroidism E03.9 (1) Anemia Anemia type: unspecified type Qualified Code(s): D64.9 - Anemia, unspecified (2) Chest wall contusion Encounter type: initial encounter Laterality: left Qualified Code(s): S20.212A - Contusion of left front wall of thorax, initial encounter (3) Pneumonia Laterality: right Lung location: unspecified part of lung Pneumonia type: due to unspecified organism Qualified Code(s): J18.9 - Pneumonia, unspecified organism
[2021-07-21] MEDS ORDERED: POTASSIUM CHLORIDE CRTAB 20 MEQ TABCR PO STA (14:28)
[2021-07-21] MEDS ORDERED: AZITHROMYCIN 250 MG TAB PO STA (15:06)
[2021-07-21] MEDS ORDERED: CEFEPIME 1,000 MG in SYRINGE 0 ML IV STA (15:07)
[2021-07-21] MEDS: LIDOCAINE 5% 1 PATCH TD SCH (16:10)
[2021-07-21 16:31] LABS: Iron < 10 mcg/dl (35-175); Unsaturated Iron Binding Cap 211 mcg/dl (155-355)
[2021-07-21] MEDS: CEFEPIME 2,000 MG in SYRINGE 0 ML IV SCH (17:50)
[2021-07-21] MEDS: AUSTEDO~ORDER AWAITING ACTION SCH ×2 (20:37→23:12)
[2021-07-21] MEDS ORDERED: cloZAPine 25 MG TAB PO SCH (21:00)
[2021-07-21] MEDS: cloZAPine 25 MG TAB PO SCH (21:14)
[2021-07-21] MEDS: ENOXAPARIN INJ 40 MG/0.4 ML SYR SQ SCH (21:14)
[2021-07-21] MEDS: LURASIDONE HCL 40 MG TAB PO SCH ×2 (21:15)
[2021-07-21] MEDS: LORazepam 1 MG TAB PO SCH (21:18)
[2021-07-21 21:22] LABS: Appearance Urine Clear (Clear); Bilirubin Urine Negative (Negative); Blood Urine Negative (Negative); Color Urine Yellow; Glucose Urine UA Negative (Negative); Ketones Urine Negative (Negative); Leukocyte Esterase Urine Negative (Negative); Nitrite Urine Negative (Negative); Protein Urine Negative (Negative); Specific Gravity Urine > 1.045 (1.000-1.030); Urobilinogen Urine Negative (Negative); pH Urine 5.5 (4.5-7.5)
[2021-07-21] MEDS: ACETAMINOPHEN 500 MG TAB PO PRN (22:42)
[2021-07-21] MEDS: POLYETHYLENE (MIRALAX) 17 GM PACK PO SCH (23:01)
[2021-07-22] MEDS: CEFEPIME 2,000 MG in SYRINGE 0 ML IV SCH ×2 (04:01→15:17)
[2021-07-22 05:50] LABS: Basophils # (auto) 0.02 K/uL (0-0.2); Basophils % (auto) 0.2 %; Eosinophils # (auto) 0.07 K/uL (0-0.5); Eosinophils % (auto) 0.7 %; Hematocrit (blood only) 27.4 % (42-52); Hemoglobin 9.1 g/dL (14.0-18.0); Immature Granulocytes # (auto) 0.02 K/uL (0.00-0.02); Immature Granulocytes % (auto) 0.2 %; Lymphocytes # (auto) 0.75 K/uL (1.2-3.4); Lymphocytes % (auto) 7.3 %; Mean Corpuscular Hgb Conc 33.2 g/dL (32-36); Mean Corpuscular Volume 90.4 fL (80-100); Mean Platelet Volume 9.8 fL (7.4-10.4); Monocytes # (auto) 1.29 K/uL (0.11-0.59); Monocytes % (auto) 12.6 %; Neutrophils # (auto) 8.08 K/uL (1.4-6.5); Platelet Count 219 K/uL (130-400); RDW Coefficient of Variation 14.3 % (11.5-14.5); RDW Standard Deviation 47.8 fL (36.4-46.3); Red Blood Count 3.03 M/uL (4.7-6.1); White Blood Count 10.23 K/uL (4.8-10.8)
[2021-07-22] MEDS: LEVOTHYROXINE SODIUM 75 MCG TABLET PO SCH (06:17)
[2021-07-22 06:34] LABS: Ferritin 165.6 ng/ml (8-388)
[2021-07-22 06:51] LABS: BUN Creatinine Ratio 20.2 (10-20); Calcium 8.3 mg/dl (8.5-10.1); Creatinine Clr Calc Pharmacy 58.2 ml/min; Est GFR (African American) 67.4 ml/min; Est GFR (Non-African American) 58.1 ml/min; Potassium 3.7 mmol/L (3.5-5.1)
--- NOTE | 2021-07-22 07:58 | Hospitalist Progress Note ---
Date of Service July 22, 2021 Assessment & Plan (1) Pneumonia: Plan: Presented after fall while walking dog -- was unsure of what/when medications taken and likely an acute metabolic encephalopathy from infection CT head no acute finding, atrophy and microvascular ischemic changes Likely representing CAP- however following COVID 19 (06/21) obtain sputum and blood culture. CURB 65- 3 CXR Large airspace opacity of the right upper lobe is suggestive of pneumonia. Follow-up imaging after treatment course is recommended to document resolution. CT Chest --> acute nondisplaced fracture of posterolateral left 10th rib fracture. ground-glass and airspace opacities of RUL abutting fissure suggestive of pneumonia, f/u after treatment needed to document resolution. Trace pleural effusions with mild bibasilar atelectasis.Prior left nephrectomy. Prostamegaly with evidence of chronic bladder outlet obstruction. Moderate constipation with large and small bowel air-fluid levels. Correlate clinically to exclude enteritis with diarrheal illness. On Cefepime/Azithromycin abx -- continued (?HAP vs de-escalation to Ceftriaxone but will await sputum cx) CRP 14.42 -- likely combination from infection from pneumonia and reactive from anemia Procal 0.15 WBC 12.1k--> 10.2K on am labs BCx from admission NGTD -- follow Febrile last evening 07/21 -- T 37.8C, 38.0C and will repeat blood cultures Legionella and aspergillus sent ECHO pending for eval of pericardial effusion -- previously noted --> done but not read -- monitor Supplemental O2 as needed Ordered incentive spirometer, flutter valve Monitor sputum culture (2) Anemia: Plan: Recent diagnosis per him and partner- further work up pending outside provider HGB 9 on admission Iron studies --> IRON <10 --> VENOFER 07/21 and repeated dosing while inpatient Folate 20.24, but normocytic with MCV 90 and given confusion on admission will also check B12 with AM labs Repeat hgb 9.1 and will monitor CBC Of note, had c-scope with Dr Christopher approx 5 years ago, polyps removed, no family hx colon ca --> Will need f/u with GI at d/c. No GI bleeding noted in stool/urine per patient (3) Rib fracture: Plan: As above Lidocaine patch/tylenol effective at pain control Encouraged continued use incentive spirometer (4) Chest wall contusion: Plan: WIth rib fracture following dog pulling him into tree - no hemothroax noted - plueral effusion chronic - Lidoderm patch and Tylenol for pain (5) Benign prostatic hyperplasia with urinary obstruction and other lower urinary tract symptoms: Plan: Follows with urology - has been having increasing frequency . UA NEGATIVE, dehydration - PSA 6.85 in December 2020 - Consider adding agent to assist with symptoms No issues reported today and will hold off on additional medications at this time Continue to monitor (6) History of elevated prostate specific antigen (PSA): Plan: As above -- f/u outpatient (7) Schizophrenia: Plan: Schizophrenia and Bipolar per chart review - symptoms appear controlled - Continue Escitalopram, Ativan, and Latuda (8) Clear cell carcinoma of left kidney: Plan: with Left Nephrectomy- no alf chemo- 2018 - Follows with Dr. 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 - follow symptoms and fluid volume status :Less diarrhea, more formed stool Continue miralax decreased to BID for now and monitor (10) CKD (chronic kidney disease), stage III: Plan: Follow fluid volume status and renal function - avoid nephrotoxic medications - BP controlled Slightly dry mm but encoruaged to push oral fluids Cr stable BMP in AM (11) Pericardial effusion: Plan: Small, noted on CT chest Check echocardiogram -- pending check lyme as well given chronic and ambulation/fall issue (12) Hypertension: Plan: Blood pressures controlled Continue diltiazem, HCTZ, lisinopril (13) Hypothyroidism: Plan: TSH normal continue home LT4 Plan: Lovenox for DVT Prophylaxis Admission and Anticipated Discharge Date Admission Date: July 21, 2021 Subjective patient evaluated this morning up in chair reading book, fatigued and tired but feeling improved Shortness of breath/pain with inspiration from rib fracture. lidocaine patch effective at helping with rib pain but wondering if able to get tylenol as effective at home -- will have RN administer decreased cough/sputum production no fever, does feel cold. discussed low iron -- had prior C-scope with Dr Christopher about 5 years ago and due to have repeat. Loose but formed stool, denies any tasneem bleeding. Review of Systems Review of Systems: All systems reviewed & are unremarkable except as noted in HPI & below Physical Exam Physical Exam: General: well developed, well nourished male, sitting up in chair reading book, no acute distress, general pallor Head atraumatic, normocephalic ENT: trachea midline, no deviation, mm slightly dry Chest: tender to palpation L anterior/posterior chest wall Resp: no cough/tachypnea, no distress or accessory muscle use, bibasilar crackles, no rales/wheezing, on room air CV: RRR, no m/r/g, no edema, calves non-tender, pulses palpable GI: +BS throughout, +distended, non-tender, no guarding/rigidity Ext: normal to inspection, moves all extremities Psych: alert, oriented, pleasant and cooperative Results & Data Results & Data ([facility]) Vital Signs (Past 12 Hours) Vital Signs Temp Pulse Resp BP BP Pulse Ox 07/22/21 06:13 37.4 C 80 16 132/75 94 07/21/21 23:23 37.4 C 07/21/21 22:14 38.0 C H 83 16 120/58 L 97 07/21/21 20:53 37.8 C H 83 20 137/70 98 Laboratory Results 07/22/21 07/22/21 07/22/21 Range/Units 05:27 05:27 05:27 WBC 10.23 (4.8-10.8) K/uL RBC 3.03 L (4.7-6.1) M/uL Hgb 9.1 L (14.0-18.0) g/dL Hct 27.4 L (42-52) % MCV 90.4 (80-100) fL MCH 30.0 (25-34) pg MCHC 33.2 (32-36) g/dL RDW Std Deviation 47.8 H (36.4-46.3) fL RDW Coeff of Marcial 14.3 (11.5-14.5) % Plt Count 219 (130-400) K/uL MPV 9.8 (7.4-10.4) fL Immature Gran % (Auto) 0.2 % Neut % (Auto) 79.0 % Lymph % (Auto) 7.3 % [place] % (Auto) 12.6 % Eos % (Auto) 0.7 % Baso % (Auto) 0.2 % Neut # (Auto) 8.08 H (1.4-6.5) K/uL Lymph # (Auto) 0.75 L (1.2-3.4) K/uL [place] # (Auto) 1.29 H (0.11-0.59) K/uL Eos # (Auto) 0.07 (0-0.5) K/uL Baso # (Auto) 0.02 (0-0.2) K/uL Immature Gran # (Auto) 0.02 (0.00-0.02) K/uL Sodium 137 (136-145) mmol/L Potassium 3.7 (3.5-5.1) mmol/L Chloride 108 H (98-107) mmol/L Carbon Dioxide 23 (21-32) mmol/L Anion Gap 6 (3-11) BUN 25 H (6-23) mg/dl Creatinine 1.24 (0.6-1.4) mg/dl Est Cr Clr Drug Dosing 58.2 ml/min Est GFR ( Amer) 67.4 ml/min Est GFR (Non-Af Amer) 58.1 ml/min BUN/Creatinine Ratio 20.2 H (10-20) Glucose 99 (70-99(Fasting)) mg/dl POC Glucose (70-99) mg/dl Calcium 8.3 L (8.5-10.1) mg/dl Iron 10 L (35-175) mcg/dl TIBC Unsaturated IBC (155-355) mcg/dl Transferrin % Sat Ferritin 165.6 (8-388) ng/ml Folate 20.24 (>5.38) ng/ml Urine Color Urine Appearance (Clear) Urine pH (4.5-7.5) Ur Specific [place] (1.000-1.030) Urine Protein (Negative) Urine Glucose (UA) (Negative) Urine Ketones (Negative) Urine Blood (Negative) Urine Nitrite (Negative) Urine Bilirubin (Negative) Urine Urobilinogen (Negative) Ur Leukocyte Esterase (Negative) Urine Legionella Ag 07/21/21 07/21/21 07/21/21 Range/Units 20:54 20:00 20:00 WBC (4.8-10.8) K/uL RBC (4.7-6.1) M/uL Hgb (14.0-18.0) g/dL Hct (42-52) % MCV (80-100) fL MCH (25-34) pg MCHC (32-36) g/dL RDW Std Deviation (36.4-46.3) fL RDW Coeff of Marcial (11.5-14.5) % Plt Count (130-400) K/uL MPV (7.4-10.4) fL Immature Gran % (Auto) % Neut % (Auto) % Lymph % (Auto) % [place] % (Auto) % Eos % (Auto) % Baso % (Auto) % Neut # (Auto) (1.4-6.5) K/uL Lymph # (Auto) (1.2-3.4) K/uL [place] # (Auto) (0.11-0.59) K/uL Eos # (Auto) (0-0.5) K/uL Baso # (Auto) (0-0.2) K/uL Immature Gran # (Auto) (0.00-0.02) K/uL Sodium (136-145) mmol/L Potassium (3.5-5.1) mmol/L Chloride (98-107) mmol/L Carbon Dioxide (21-32) mmol/L Anion Gap (3-11) BUN (6-23) mg/dl Creatinine (0.6-1.4) mg/dl Est Cr Clr Drug Dosing ml/min Est GFR ( Amer) ml/min Est GFR (Non-Af Amer) ml/min BUN/Creatinine Ratio (10-20) Glucose (70-99(Fasting)) mg/dl POC Glucose 157 H (70-99) mg/dl Calcium (8.5-10.1) mg/dl Iron (35-175) mcg/dl TIBC Unsaturated IBC (155-355) mcg/dl Transferrin % Sat Ferritin (8-388) ng/ml Folate (>5.38) ng/ml Urine Color Yellow Urine Appearance Clear (Clear) Urine pH 5.5 (4.5-7.5) Ur Specific [place] > 1.045 H (1.000-1.030) Urine Protein Negative (Negative) Urine Glucose (UA) Negative (Negative) Urine Ketones Negative (Negative) Urine Blood Negative (Negative) Urine Nitrite Negative (Negative) Urine Bilirubin Negative (Negative) Urine Urobilinogen Negative (Negative) Ur Leukocyte Esterase Negative (Negative) Urine Legionella Ag Pending 07/21/21 Range/Units 11:38 WBC (4.8-10.8) K/uL RBC (4.7-6.1) M/uL Hgb (14.0-18.0) g/dL Hct (42-52) % MCV (80-100) fL MCH (25-34) pg MCHC (32-36) g/dL RDW Std Deviation (36.4-46.3) fL RDW Coeff of Marcial (11.5-14.5) % Plt Count (130-400) K/uL MPV (7.4-10.4) fL Immature Gran % (Auto) % Neut % (Auto) % Lymph % (Auto) % [place] % (Auto) % Eos % (Auto) % Baso % (Auto) % Neut # (Auto) (1.4-6.5) K/uL Lymph # (Auto) (1.2-3.4) K/uL [place] # (Auto) (0.11-0.59) K/uL Eos # (Auto) (0-0.5) K/uL Baso # (Auto) (0-0.2) K/uL Immature Gran # (Auto) (0.00-0.02) K/uL Sodium (136-145) mmol/L Potassium (3.5-5.1) mmol/L Chloride (98-107) mmol/L Carbon Dioxide (21-32) mmol/L Anion Gap (3-11) BUN (6-23) mg/dl Creatinine (0.6-1.4) mg/dl Est Cr Clr Drug Dosing ml/min Est GFR ( Amer) ml/min Est GFR (Non-Af Amer) ml/min BUN/Creatinine Ratio (10-20) Glucose (70-99(Fasting)) mg/dl POC Glucose (70-99) mg/dl Calcium (8.5-10.1) mg/dl Iron < 10 L (35-175) mcg/dl TIBC TNP Unsaturated IBC 211 (155-355) mcg/dl Transferrin % Sat TNP Ferritin (8-388) ng/ml Folate (>5.38) ng/ml Urine Color Urine Appearance (Clear) Urine pH (4.5-7.5) Ur Specific [place] (1.000-1.030) Urine Protein (Negative) Urine Glucose (UA) (Negative) Urine Ketones (Negative) Urine Blood (Negative) Urine Nitrite (Negative) Urine Bilirubin (Negative) Urine Urobilinogen (Negative) Ur Leukocyte Esterase (Negative) Urine Legionella Ag Diagnostic Findings Abdomen/Pelvis CT 07/21/21 11:[address] WITH CONTRAST; CT ABDOMEN AND PELVIS WITH IV CONTRAST ONLY HISTORY: Acute chest and abdominal trauma status post fall fall TECHNIQUE: Multiaxial CT images of the chest, abdomen and pelvis were performed following the IV administration of 93 cc of Optiray. A dose lowering technique was utilized adhering to the principles of ALARA. COMPARISON: CT abdomen and pelvis 02/22/2021, chest CT 10/18/2020, chest radiograph 05/03/2021 FINDINGS: CT CHEST: 1.6 cm right-sided thyroid nodule. No lymphadenopathy identified. The heart is mildly enlarged. Small pericardial effusion. There is no thoracic aortic aneurysm or dissection. Patency of the imaged great vessels. Unremarkable pulmonary artery. Trace pleural effusions. No pneumothorax or overt pulmonary edema. Mild dependent subsegmental bibasilar atelectasis. Airspace opacities of the right upper lobe with surrounding groundglass density percent around a focal 6.2 x 7.4 x 6.1 cm airspace density on image 129. 3 mm solid nodule of the right lung apex on image 61. 3 mm solid nodule of the right upper lobe on image 67. Both of these nodules appear stable from prior. Mild generalized body wall edema. Several subcentimeter bilateral rib lesions (please see bookmarks) appear stable from prior. Subtle acute nondisplaced fracture of the posterolateral left 10th rib. CT ABDOMEN/PELVIS: No pneumatosis or pneumoperitoneum. The spleen is mildly enlarged, 13.2 cm in length. Unremarkable pancreas and right adrenal gland. Unchanged nodular thickening of the left adrenal gland suggestive of hyperplasia with possible underlying adrenal myolipoma measuring 1.9 cm. Distended gallbladder with equivocal sludge versus cholelithiasis. There are a few scattered hypodensities again noted throughout the liver which are too small to characterize measuring up to 6 mm within the left hepatic lobe an approximately 7 mm within the right hepatic lobe. Patency of the hepatic and portal veins. There are a few cysts of the right kidney redemonstrated measuring up to approximately 2 cm. Cortical scarring of the posterior interpolar right kidney. No right-sided hydronephrosis. Left nephrectomy. No mass or lesion identified within the left nephrectomy bed. Moderately distended urinary bladder with wall thickening. Urinary bladder wall trabeculation with small diverticulum along the anterior superior dome of the bladder. Prostamegaly. Atherosclerosis of the aorta. No definite adenopathy. Mild generalized body wall edema with mesenteric edema. No bowel obstruction. Moderate fecal retention. Scattered air-fluid levels are noted throughout the large and small bowel. Hyperdense foci are again noted within the appendix suggestive of retained enteric contrast versus appendicolith. The visualized appendix appears noninflamed.. Degenerative changes of the spine, pelvis and hips. 10 mm anterolisthesis L5 on S1 redemonstrated with chronic L5 pars defects. Ill-defined scattered sclerotic foci of the ribs and right iliac bone redemonstrated. No definite acute fracture identified. IMPRESSION: 1. Acute nondisplaced fracture of the posterolateral left 10th rib. No pneumothorax or acute solid organ injury. 2. Groundglass and airspace opacities of the right upper lobe abutting the fissure are suggestive of pneumonia. Follow-up imaging after treatment course is needed to document resolution. 3. Trace pleural effusions with mild bibasilar atelectasis. 4. Prior left nephrectomy. 5. Prostamegaly with evidence of chronic bladder outlet obstruction. 6. Moderate constipation with large and small bowel air-fluid levels. Correlate clinically to exclude enteritis with diarrheal illness. 7. Additional findings as above. ACT 112: Negative or not required by law. Electronically signed by: Viet Dasilva M.D. 07/21/2021 1:[address] 07/21/21 11:[address] DOSE: 1723.39 mGy.cm HISTORY: fall TECHNIQUE: Multiaxial CT images of the cervical spine were performed and reformatted in the sagittal and coronal plane without the use of contrast. A dose lowering technique was utilized adhering to the principles of ALARA. COMPARISON: Cervical spine CT 11/25/2020. FINDINGS: No fractures within the cervical spine. The C2-C3 facets are fused. There is partial fusion of the C2-C3 vertebral bodies. There is 3 mm of anterolisthesis of C4 on C5 likely due to long-standing degenerative change. Moderate degenerative disc disease and facet osteoarthritis is again noted. Prevertebral soft tissues and the C1-C2 interval are intact. No pneumothorax. IMPRESSION: No fractures within the cervical spine. ACT 112: Negative or not required by law. Electronically signed by: Rupert Verduzco M.D. 07/21/2021 1:[address] 07/21/21 11:[address] WITH CONTRAST; CT ABDOMEN AND PELVIS WITH IV CONTRAST ONLY HISTORY: Acute chest and abdominal trauma status post fall fall TECHNIQUE: Multiaxial CT images of the chest, abdomen and pelvis were performed following the IV administration of 93 cc of Optiray. A dose lowering technique was utilized adhering to the principles of ALARA. COMPARISON: CT abdomen and pelvis 02/22/2021, chest CT 10/18/2020, chest radiograph 05/03/2021 FINDINGS: CT CHEST: 1.6 cm right-sided thyroid nodule. No lymphadenopathy identified. The heart is mildly enlarged. Small pericardial effusion. There is no thoracic aortic aneurysm or dissection. Patency of the imaged great vessels. Unremarkable pulmonary artery. Trace pleural effusions. No pneumothorax or overt pulmonary edema. Mild dependent subsegmental bibasilar atelectasis. Airspace opacities of the right upper lobe with surrounding groundglass density percent around a focal 6.2 x 7.4 x 6.1 cm airspace density on image 129. 3 mm solid nodule of the right lung apex on image 61. 3 mm solid nodule of the right upper lobe on image 67. Both of these nodules appear stable from prior. Mild generalized body wall edema. Several subcentimeter bilateral rib lesions (please see bookmarks) appear stable from prior. Subtle acute nondisplaced fracture of the posterolateral left 10th rib. CT ABDOMEN/PELVIS: No pneumatosis or pneumoperitoneum. The spleen is mildly enlarged, 13.2 cm in length. Unremarkable pancreas and right adrenal gland. Unchanged nodular thickening of the left adrenal gland suggestive of hyperplasia with possible underlying adrenal myolipoma measuring 1.9 cm. Distended gallbladder with equivocal sludge versus cholelithiasis. There are a few scattered hypodensities again noted throughout the liver which are too small to characterize measuring up to 6 mm within the left hepatic lobe an approximately 7 mm within the right hepatic lobe. Patency of the hepatic and portal veins. There are a few cysts of the right kidney redemonstrated measuring up to approximately 2 cm. Cortical scarring of the posterior interpolar right kidney. No right-sided hydronephrosis. Left nephrectomy. No mass or lesion identified within the left nephrectomy bed. Moderately distended urinary bladder with wall thickening. Urinary bladder wall trabeculation with small diverticulum along the anterior superior dome of the bladder. Prostamegaly. Atherosclerosis of the aorta. No definite adenopathy. Mild generalized body wall edema with mesenteric edema. No bowel obstruction. Moderate fecal retention. Scattered air-fluid levels are noted throughout the large and small bowel. Hyperdense foci are again noted within the appendix suggestive of retained enteric contrast versus appendicolith. The visualized appendix appears noninflamed.. Degenerative changes of the spine, pelvis and hips. 10 mm anterolisthesis L5 on S1 redemonstrated with chronic L5 pars defects. Ill-defined scattered sclerotic foci of the ribs and right iliac bone redemonstrated. No definite acute fracture identified. IMPRESSION: 1. Acute nondisplaced fracture of the posterolateral left 10th rib. No pneumothorax or acute solid organ injury. 2. Groundglass and airspace opacities of the right upper lobe abutting the fissure are suggestive of pneumonia. Follow-up imaging after treatment course is needed to document resolution. 3. Trace pleural effusions with mild bibasilar atelectasis. 4. Prior left nephrectomy. 5. Prostamegaly with evidence of chronic bladder outlet obstruction. 6. Moderate constipation with large and small bowel air-fluid levels. Correlate clinically to exclude enteritis with diarrheal illness. 7. Additional findings as above. ACT 112: Negative or not required by law. Electronically signed by: Viet Dasilva M.D. 07/21/2021 1:44 PM Chest X-Ray 07/21/21 11:35 XR chest 1V portable HISTORY: 71 years-old Male weakness acute weakness with chest pain COMPARISON: Chest radiograph 05/03/2021 TECHNIQUE: Portable AP view the chest FINDINGS: Cardiac mediastinal and hilar silhouettes are within normal limits. There is a large airspace opacity of the right upper lobe abutting the fissure. This measures over 9 cm. No pneumothorax, pleural effusion or overt pulmonary edema. Degenerative changes of the shoulders and spine. Surgical anchor of the right humeral head. IMPRESSION: Large airspace opacity of the right upper lobe is suggestive of pneumonia. Follow-up imaging after treatment course is recommended to document resolution. ACT 112: Negative or not required by law.r The above report was generated using voice recognition software. It may contain grammatical, syntax or spelling errors. Electronically signed by: Viet Dasilva M.D. 07/21/2021 12:[address] 07/21/21 11:[address] DOSE: HISTORY: fall TECHNIQUE: Multiaxial CT images of the head were performed without the use of intravenous contrast. Automated exposure control was utilized for this study. A dose lowering technique was utilized adhering to the principles of ALARA. Comparison: None. Findings: The paranasal sinuses and mastoid air cells are clear. The calvarium and skull base are intact. There is no mass, hematoma, midline shift, acute infarct. White matter hypodensity is nonspecific but suggestive of microvascular ischemic change. The ventricles and sulci demonstrate mild age-related involutional changes. Impression: No acute intracranial abnormality. Atrophy and microvascular ischemic changes. ACT 112: Negative or not required by law. Electronically signed by: Rupert Verduzco M.D. 07/21/2021 1:02 PM PG Care Time/CCT Total # of Minutes Spent Total Time Spent with Patient: Total time spent is greater than 50% in coordination of care (as documented) at patient's floor/unit and/or counseling patient: Coding Level of Care Code 41231 Subseq Hosp Care Lvl 3 Diagnoses Pneumonia J18.9 Laterality: right Lung location: unspecified part of lung Pneumonia type: due to unspecified organism Anemia D64.9 Anemia type: unspecified type Rib fracture S22.39XA Chest wall contusion S20.212A Encounter type: initial encounter Laterality: left Benign prostatic hyperplasia with urinary obstruction and other lower urinary tract symptoms N40.1; N13.8 History of elevated prostate specific antigen (PSA) Z87.898 Schizophrenia F20.9 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 (1) Pneumonia Laterality: right Lung location: unspecified part of lung Pneumonia type: due to unspecified organism Qualified Code(s): J18.9 - Pneumonia, unspecified organism (2) Anemia Anemia type: unspecified type Qualified Code(s): D64.9 - Anemia, unspecified (3) Chest wall contusion Encounter type: initial encounter Laterality: left Qualified Code(s): S20.212A - Contusion of left front wall of thorax, initial encounter
[2021-07-22] MEDS: hydroCHLOROthiazide 25 MG TAB PO SCH (08:15)
[2021-07-22] MEDS: lisinopril 2.5 MG TAB PO SCH (08:15)
[2021-07-22] MEDS: dilTIAZem HCL 180 MG CAPCR PO SCH (08:15)
[2021-07-22] MEDS: LIDOCAINE 5% 1 PATCH TD SCH (08:15)
[2021-07-22] MEDS: AUSTEDO~ORDER AWAITING ACTION SCH ×2 (08:16→15:17)
[2021-07-22] MEDS: POLYETHYLENE (MIRALAX) 17 GM PACK PO SCH ×2 (08:16→20:42)
[2021-07-22] MEDS: ESCITALOPRAM OXALATE 20 MG TAB PO SCH (08:16)
[2021-07-22] MEDS: POLYETHYLENE (MIRALAX) 17 GM PACK PO PRN ×2 (08:21→20:42)
[2021-07-22] MEDS: IRON SUCROSE 300 MG in SODIUM CHLORIDE 0.9% 250 ML IV SCH (08:28)
[2021-07-22] MEDS ORDERED: NON-FORMULARY MEDICATION (Glucos Sul 2kcl-Msm-Chond-C-Mn [Glucosamine Chondroitin] 550-30- PO SCH (09:00)
[2021-07-22] MEDS: ACETAMINOPHEN 500 MG TAB PO PRN ×2 (11:07→18:47)
--- NOTE | 2021-07-22 15:57 | XCELERA ---
[id number] \\[id number]
[2021-07-22] MEDS ORDERED: AZITHROMYCIN 250 MG TAB PO SCH (16:00)
[2021-07-22] MEDS ORDERED: AZITHROMYCIN 250 MG TAB PO ONE (16:00)
[2021-07-22] MEDS: cloZAPine 25 MG TAB PO SCH (20:37)
[2021-07-22] MEDS: LORazepam 1 MG TAB PO SCH (20:38)
[2021-07-22] MEDS: ENOXAPARIN INJ 40 MG/0.4 ML SYR SQ SCH (20:38)
[2021-07-22] MEDS: LURASIDONE HCL 40 MG TAB PO SCH ×2 (20:39)
[2021-07-23] MEDS: CEFEPIME 2,000 MG in SYRINGE 0 ML IV SCH (05:45)
[2021-07-23] MEDS: LEVOTHYROXINE SODIUM 75 MCG TABLET PO SCH (05:45)
[2021-07-23 06:57] LABS: Basophils # (auto) 0.02 K/uL (0-0.2); Basophils % (auto) 0.2 %; Eosinophils # (auto) 0.09 K/uL (0-0.5); Eosinophils % (auto) 1.1 %; Hematocrit (blood only) 29.8 % (42-52); Hemoglobin 9.9 g/dL (14.0-18.0); Mean Corpuscular Hemoglobin 29.7 pg (25-34); Mean Corpuscular Hgb Conc 33.2 g/dL (32-36); Mean Corpuscular Volume 89.5 fL (80-100); Mean Platelet Volume 9.5 fL (7.4-10.4); Monocytes # (auto) 0.57 K/uL (0.11-0.59); Monocytes % (auto) 6.9 %; Neutrophils # (auto) 6.63 K/uL (1.4-6.5); Neutrophils % (auto) 79.8 %; Platelet Count 223 K/uL (130-400); RDW Coefficient of Variation 14.3 % (11.5-14.5); RDW Standard Deviation 47.2 fL (36.4-46.3); Red Blood Count 3.33 M/uL (4.7-6.1); White Blood Count 8.31 K/uL (4.8-10.8)
[2021-07-23 07:33] LABS: BUN Creatinine Ratio 17.9 (10-20); Calcium 8.8 mg/dl (8.5-10.1); Creatinine Clr Calc Pharmacy 64.4 ml/min; Est GFR (African American) 76.2 ml/min; Est GFR (Non-African American) 65.7 ml/min; Potassium 4.4 mmol/L (3.5-5.1)
[2021-07-23] MEDS: dilTIAZem HCL 180 MG CAPCR PO SCH (08:24)
[2021-07-23] MEDS: lisinopril 2.5 MG TAB PO SCH (08:24)
[2021-07-23] MEDS: hydroCHLOROthiazide 25 MG TAB PO SCH (08:24)
[2021-07-23] MEDS: ACETAMINOPHEN 500 MG TAB PO PRN (08:24)
[2021-07-23] MEDS: POLYETHYLENE (MIRALAX) 17 GM PACK PO SCH ×2 (08:24→21:38)
[2021-07-23] MEDS: ESCITALOPRAM OXALATE 20 MG TAB PO SCH (08:24)
[2021-07-23] MEDS: POLYETHYLENE (MIRALAX) 17 GM PACK PO PRN (08:24)
[2021-07-23] MEDS: LIDOCAINE 5% 1 PATCH TD SCH (08:25)
[2021-07-23] MEDS: IRON SUCROSE 300 MG in SODIUM CHLORIDE 0.9% 250 ML IV SCH (08:25)
--- NOTE | 2021-07-23 08:30 | Hospitalist Progress Note ---
Date of Service July 23, 2021 Assessment & Plan (1) Pneumonia: Plan: Presented after fall while walking dog -- was unsure of what/when medications taken and likely an acute metabolic encephalopathy from infection CT head no acute finding, atrophy and microvascular ischemic changes CXR Large airspace opacity of the right upper lobe is suggestive of pneumonia. * Follow-up imaging after treatment course is recommended to document resolution. CT Chest * --> acute nondisplaced fracture of posterolateral left 10th rib fracture. ground-glass and airspace opacities of RUL abutting fissure suggestive of pneumonia, f/u after treatment needed to document resolution. Trace pleural effusions with mild bibasilar atelectasis.Prior left nephrectomy. Prostamegaly with evidence of chronic bladder outlet obstruction. Moderate constipation with large and small bowel air-fluid levels. Correlate clinically to exclude enteritis with diarrheal illness. --> Will check stool PCR cx Of note, does have evidence of breanne disease per heme/onc outpatient notes --> will need continued f/u Likely representing CAP --> however following COVID 19 (06/21) obtain sputum and blood culture. CURB 65- 3 Cefepime/Azithromycin IV abx until 07/23, then * --> changed to Ceftriaxone given no underlying COPD. * --> Also switched Azithromycin to doxycycline for atypical coverage (see equivocal +IgM lyme below, WB pending) WBC 12.1k --> 8.3k Procal 0.15 CRP 14.42 -- likely combination from infection from pneumonia and reactive from anemia Febrile evening 07/21 -- T 37.8C, 38.0C, blood cultures repeated and remains afebrile since that time BCx NGTD -- follow Legionella urine NEGATIVE,aspergillus pending Sputum cx light normal krista on preliminary --> monitor final Supplemental O2 as needed -- on ROOM AIR Continue incentive spirometer, flutter valve ECHO for eval of pericardial effusion --> LV systolic function normal. RV systolic pressure normal. IVC mildly dilated. Mild concentric LVH --> Lyme equivocal IgM, monitor WB. Denied tick bites or prior hx Lyme (2) Anemia: Plan: Recent diagnosis per him and partner- further work up pending outside provider HGB 9 on admission Iron studies --> IRON <10 --> VENOFER 07/21 and repeated dosing while inpatient x 5 doses Folate 20.24, but normocytic with MCV 90 and given confusion on admission will also check B12 with AM labs --> B12 370 could consider replacement but will resume his home B complex and he should continue this at discharge Repeat hgb 9.1 --> 9.9 Of note, had c-scope with Dr Christopher approx 5 years ago, polyps removed, no family hx colon ca --> Will need f/u with GI at d/c. No GI bleeding noted in stool/urine per patient Monitor CBC (3) Rib fracture: Plan: As above Lidocaine patch/tylenol effective at pain control Encouraged continued use incentive spirometer (4) Chest wall contusion: Plan: WIth rib fracture following dog pulling him into tree - no hemothroax noted - plueral effusion chronic - Lidoderm patch and Tylenol for pain -- effective (5) Benign prostatic hyperplasia with urinary obstruction and other lower urinary tract symptoms: Plan: Follows with urology - has been having increasing frequency . UA NEGATIVE, dehydration - PSA 6.85 in December 2020 -- per heme/onc has been stable around 7 - Consider adding agent to assist with symptoms --> denies any issues with urination, holding off on additional measures at this time Continue to monitor (6) History of elevated prostate specific antigen (PSA): Plan: As above -- f/u outpatient with urology (7) Schizophrenia: Plan: Schizophrenia and Bipolar per chart review - symptoms appear controlled - Continue Escitalopram, Ativan, and Latuda (8) Clear cell carcinoma of left kidney: Plan: with Left Nephrectomy- no watermaster chemo- 2018 - Follows with Dr. Markel Haro - No metastatic disease noted on admission but review of note --> indeterminate focus increased activity corresponding to R anterior 5th rib with corresponding mixed lytic and sclerotic lesion on prior CT chest measuring 12mm. Indeterminate focus of activity corresponding to posterior 10th rib, corresponding subtle 6mm lytic and sclerotic focus at this level on prior CT scan. --> CT chest Mar without change in lesions, and although indeterminate, not highly suggestive of metastatic disease. 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 - follow symptoms and fluid volume status Less diarrhea, more formed stool but fixated on not getting constipated Continue Miralax decreased to BID for now and monitor Discussed Metamucil to help bulk up stools given chronic issue but had been taking YAW doses of miralax at home given prior constipation issues with psychiatric medications Check PCR for completeness but he does have reasons to have diarrhea Monitor (10) CKD (chronic kidney disease), stage III: Plan: Follow fluid volume status and renal function - avoid nephrotoxic medications - BP controlled Slightly dry mm but encoruaged to push oral fluids Cr stable BMP in AM (11) Pericardial effusion: Plan: Small, noted on CT chest Check echocardiogram -- small effusion ?from COVID check lyme as well given chronic and ambulation/fall issue --> equivocal --> Changed Azithro to Doxycycline as above. Continue (12) Hypertension: Plan: Blood pressures controlled 145/79 Continue diltiazem, HCTZ, lisinopril (13) Hypothyroidism: Plan: TSH normal continue home LT4 Plan: Lovenox for DVT Prophylaxis Admission and Anticipated Discharge Date Admission Date: July 21, 2021 Subjective patient evaluated around noon doing well, using incentive spirometer and flutter valve getting more sputum up -- cx preliminary with light normal krista urinating without an issue and states urine preboarder and yellow in color today small formed BM but worried about getting constipated and would like Miralax 2 doses AM/PM to help with facilitation and this was switched. No fever, chills, chest pain (outside of rib pain, which reports is controlled with Tylenol and improvement with the topical Voltaren and this will be continued). No abdominal pain but does have some fullness. Discussed walking dog, denies any tick bites but given effusion, checking Lyme titer. Equivocal and will wit for WB, but considering switching to doxycycline if +. Asked to re-visit patient this afternoon regarding concerns of not emptying bowels completely. Given dulcolax IA per patient request--> discussed with patient. He felt may be addicted to the miralax as he is on so mayny psychotropic medications and anticholinergic properties that he has been constipated in the past and this has caused a great deal of pain. Discussed miralax to help loosed/move bowels along, but he has continued with always having loose stools. Discussed may be a better idea to decrease the miralax use (done inpatient) and add something like metamucil and ensure adequate water intake with such, to help bulk up his stool. Agreeable and will order and monitor response. Discussed abx usually lead to diarrhea as side effect and if moving bowels would not increase miralax. Review of Systems Review of Systems: All systems reviewed & are unremarkable except as noted in HPI & below Physical Exam Physical Exam: General: well developed, well nourished male, sitting up in chair using incentive spirometer and flutter valve, no acute distress, general pallor Head atraumatic, normocephalic ENT: trachea midline, no deviation, mm slightly dry (improved) Chest: tender to palpation L anterior/posterior chest wall (decreased, lidocaine patch in place) Resp: no cough/tachypnea, no distress or accessory muscle use, bibasilar crackles, no rales/wheezing, on room air CV: RRR, no m/r/g, no edema, calves non-tender, pulses palpable GI: +BS throughout, +distended (less), protuberant belly, non-tender, no guarding/rigidity Ext: normal to inspection, moves all extremities Psych: alert, oriented, pleasant and cooperative -- very anxious about possibility of getting constipated despite continued BMs) Results & Data Results & Data ([facility]) Vital Signs (Past 12 Hours) Vital Signs Temp Pulse Pulse Resp BP Pulse Ox 07/23/21 07:27 37.0 C 79 17 147/81 H 93 07/22/21 22:50 36.9 C 80 16 136/72 93 Laboratory Results 07/23/21 07/23/21 07/23/21 Range/Units 06:39 06:39 06:39 WBC (4.8-10.8) K/uL RBC (4.7-6.1) M/uL Hgb (14.0-18.0) g/dL Hct (42-52) % MCV (80-100) fL MCH (25-34) pg MCHC (32-36) g/dL RDW Std Deviation (36.4-46.3) fL RDW Coeff of Marcial (11.5-14.5) % Plt Count (130-400) K/uL MPV (7.4-10.4) fL Immature Gran % (Auto) % Neut % (Auto) % Lymph % (Auto) % [place] % (Auto) % Eos % (Auto) % Baso % (Auto) % Neut # (Auto) (1.4-6.5) K/uL Lymph # (Auto) (1.2-3.4) K/uL [place] # (Auto) (0.11-0.59) K/uL Eos # (Auto) (0-0.5) K/uL Baso # (Auto) (0-0.2) K/uL Immature Gran # (Auto) (0.00-0.02) K/uL Sodium 137 (136-145) mmol/L Potassium 4.4 (3.5-5.1) mmol/L Chloride 106 (98-107) mmol/L Carbon Dioxide 24 (21-32) mmol/L Anion Gap 7 (3-11) BUN 20 (6-23) mg/dl Creatinine 1.12 (0.6-1.4) mg/dl Est Cr Clr Drug Dosing 64.4 ml/min Est GFR ( Amer) 76.2 ml/min Est GFR (Non-Af Amer) 65.7 ml/min BUN/Creatinine Ratio 17.9 (10-20) Glucose 96 (70-99(Fasting)) mg/dl POC Glucose (70-99) mg/dl Calcium 8.8 (8.5-10.1) mg/dl Vitamin B12 370 (211-911) pg/ml Lyme Disease IgG Ab (Negative) Lyme IgG (Western Blot) Pending Lyme IgG 18 kDa Band Pending Lyme IgG 23 kDa Band Pending Lyme IgG 28 kDa Band Pending Lyme IgG 30 kDa Band Pending Lyme IgG 39 kDa Band Pending Lyme IgG 41 kDa Band Pending Lyme IgG 45 kDa Band Pending Lyme IgG 58 kDa Band Pending Lyme IgG 66 kDa Band Pending Lyme IgG 93 kDa Band Pending Lyme IgM Ab (WB) Pending Lyme Disease IgM Ab (Negative) Lyme IgM 23 kDa Band Pending Lyme IgM 39 kDa Band Pending Lyme IgM 41 kDa Band Pending Urine Legionella Ag 07/23/21 07/23/21 07/22/21 Range/Units 06:39 06:39 20:32 WBC 8.31 (4.8-10.8) K/uL RBC 3.33 L (4.7-6.1) M/uL Hgb 9.9 L (14.0-18.0) g/dL Hct 29.8 L (42-52) % MCV 89.5 (80-100) fL MCH 29.7 (25-34) pg MCHC 33.2 (32-36) g/dL RDW Std Deviation 47.2 H (36.4-46.3) fL RDW Coeff of Marcial 14.3 (11.5-14.5) % Plt Count 223 (130-400) K/uL MPV 9.5 (7.4-10.4) fL Immature Gran % (Auto) 0.0 % Neut % (Auto) 79.8 % Lymph % (Auto) 12.0 % [place] % (Auto) 6.9 % Eos % (Auto) 1.1 % Baso % (Auto) 0.2 % Neut # (Auto) 6.63 H (1.4-6.5) K/uL Lymph # (Auto) 1.00 L (1.2-3.4) K/uL [place] # (Auto) 0.57 (0.11-0.59) K/uL Eos # (Auto) 0.09 (0-0.5) K/uL Baso # (Auto) 0.02 (0-0.2) K/uL Immature Gran # (Auto) 0.00 (0.00-0.02) K/uL Sodium (136-145) mmol/L Potassium (3.5-5.1) mmol/L Chloride (98-107) mmol/L Carbon Dioxide (21-32) mmol/L Anion Gap (3-11) BUN (6-23) mg/dl Creatinine (0.6-1.4) mg/dl Est Cr Clr Drug Dosing ml/min Est GFR ( Amer) ml/min Est GFR (Non-Af Amer) ml/min BUN/Creatinine Ratio (10-20) Glucose (70-99(Fasting)) mg/dl POC Glucose 106 H (70-99) mg/dl Calcium (8.5-10.1) mg/dl Vitamin B12 (211-911) pg/ml Lyme Disease IgG Ab Negative (Negative) Lyme IgG (Western Blot) Lyme IgG 18 kDa Band Lyme IgG 23 kDa Band Lyme IgG 28 kDa Band Lyme IgG 30 kDa Band Lyme IgG 39 kDa Band Lyme IgG 41 kDa Band Lyme IgG 45 kDa Band Lyme IgG 58 kDa Band Lyme IgG 66 kDa Band Lyme IgG 93 kDa Band Lyme IgM Ab (WB) Lyme Disease IgM Ab Equivocal A (Negative) Lyme IgM 23 kDa Band Lyme IgM 39 kDa Band Lyme IgM 41 kDa Band Urine Legionella Ag 07/21/21 Range/Units 20:00 WBC (4.8-10.8) K/uL RBC (4.7-6.1) M/uL Hgb (14.0-18.0) g/dL Hct (42-52) % MCV (80-100) fL MCH (25-34) pg MCHC (32-36) g/dL RDW Std Deviation (36.4-46.3) fL RDW Coeff of Marcial (11.5-14.5) % Plt Count (130-400) K/uL MPV (7.4-10.4) fL Immature Gran % (Auto) % Neut % (Auto) % Lymph % (Auto) % [place] % (Auto) % Eos % (Auto) % Baso % (Auto) % Neut # (Auto) (1.4-6.5) K/uL Lymph # (Auto) (1.2-3.4) K/uL [place] # (Auto) (0.11-0.59) K/uL Eos # (Auto) (0-0.5) K/uL Baso # (Auto) (0-0.2) K/uL Immature Gran # (Auto) (0.00-0.02) K/uL Sodium (136-145) mmol/L Potassium (3.5-5.1) mmol/L Chloride (98-107) mmol/L Carbon Dioxide (21-32) mmol/L Anion Gap (3-11) BUN (6-23) mg/dl Creatinine (0.6-1.4) mg/dl Est Cr Clr Drug Dosing ml/min Est GFR ( Amer) ml/min Est GFR (Non-Af Amer) ml/min BUN/Creatinine Ratio (10-20) Glucose (70-99(Fasting)) mg/dl POC Glucose (70-99) mg/dl Calcium (8.5-10.1) mg/dl Vitamin B12 (211-911) pg/ml Lyme Disease IgG Ab (Negative) Lyme IgG (Western Blot) Lyme IgG 18 kDa Band Lyme IgG 23 kDa Band Lyme IgG 28 kDa Band Lyme IgG 30 kDa Band Lyme IgG 39 kDa Band Lyme IgG 41 kDa Band Lyme IgG 45 kDa Band Lyme IgG 58 kDa Band Lyme IgG 66 kDa Band Lyme IgG 93 kDa Band Lyme IgM Ab (WB) Lyme Disease IgM Ab (Negative) Lyme IgM 23 kDa Band Lyme IgM 39 kDa Band Lyme IgM 41 kDa Band Urine Legionella Ag SEE NOTE PG Care Time/CCT Total # of Minutes Spent Total Time Spent with Patient: Total time spent is greater than 50% in coordination of care (as documented) at patient's floor/unit and/or counseling patient: Prolonged Care Time Prolonged Care Time: Yes additional 45 minutes reviewing prior history/outpatient notes, multiple trips to bedside for discussions regarding plan of care with patient Coding Level of Care Code 88121 Subseq Hosp Care Lvl 3 Diagnoses Pneumonia J18.9 Laterality: right Lung location: unspecified part of lung Pneumonia type: due to unspecified organism Anemia D64.9 Anemia type: unspecified type Rib fracture S22.39XA Chest wall contusion S20.212A Encounter type: initial encounter Laterality: left Benign prostatic hyperplasia with urinary obstruction and other lower urinary tract symptoms N40.1; N13.8 History of elevated prostate specific antigen (PSA) Z87.898 Schizophrenia F20.9 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 Additional Codes Prolonged Care Time - Prolonged Care Time: Yes ([id number]) (1) Anemia Anemia type: unspecified type Qualified Code(s): D64.9 - Anemia, unspecified (2) Chest wall contusion Encounter type: initial encounter Laterality: left Qualified Code(s): S20.212A - Contusion of left front wall of thorax, initial encounter (3) Pneumonia Laterality: right Lung location: unspecified part of lung Pneumonia type: due to unspecified organism Qualified Code(s): J18.9 - Pneumonia, unspecified organism
[2021-07-23 08:32] LABS: Lyme Ab IgG w/WB Rflx Negative (Negative)
[2021-07-23 08:59] LABS: Lyme Ab IgM w/WB Rflx Equivocal (Negative)
[2021-07-23] MEDS: VITAMIN B COMPLEX TAB PO SCH (10:01)
[2021-07-23] MEDS ORDERED: bisacodyL 10 MG SUPP PR STA (12:59)
[2021-07-23] MEDS: PSYLLIUM 58.6% POWDER PACKET PO SCH (15:39)
[2021-07-23] MEDS: cefTRIAXone SODIUM 2,000 MG in DEXTROSE 5% 50 ML IV SCH (15:39)
[2021-07-23] MEDS: LORazepam 1 MG TAB PO PRN (15:45)
--- NOTE | 2021-07-23 16:37 | Cardiology Consultation ---
Date of Consultation July 23, 2021 Assessment & Plan (1) Pericardial effusion: 1. Pericardial effusion: Unclear this is related to his injury. Did not appear to have a significant impact to the sternum. He does have some pleuritic pain with inspiration. The small effusion could be unrelated to his recent accident. He could certainly be related to an inflammatory or infectious process. His chest CT was abnormal in other respects and he is being evaluated for Lyme disease as well. I do not believe there is any hemodynamic compromise from this small effusion. In the absence of worsening symptoms such as tachycardia, hypotension or worsening exercise tolerance I think a follow-up limited echocardiogram 1 month would be satisfactory. History of Present Illness Reason for Consultation: Pericardial effusion Requesting Physician: Roro Attending Physician: Javed Lester History of Present Illness The patient is a 71-year-old gentleman without a known history of cardiac disease who [facility] after suffering an injury. It seems that the patient was out walking someone else's dog when the dog pulled him into a tree. Patient believes he lost consciousness after impacting the tree. He also reported hearing voices and auditory hallucinations. He was brought to the emergency room and imaging revealed a small pericardial effusion and broken ribs on the left chest. An echocardiogram was performed which also revealed a small pericardial effusion. The patient states that he has not been feeling well for several months. He had a variety of diffuse symptoms including frequent loose stools. He has also been struggling with his schizophrenia. However, he is able to maintain a reasonable level of activity. He walks frequently. He has not report symptoms of limiting dyspnea. He is generally not aware of palpitations. He does have dizziness on occasion. He was ambulatory around the chacko without significant limitation or symptoms. Allergies Allergy/AdvReac Type Severity Reaction Status Date / Time Penicillins Allergy Unknown UNKNOWN Verified 07/21/21 11:45 REACTION - HAPPENED A CHILD oxycodone [From OxyContin] AdvReac Intermediate Fainting Unverified 07/21/21 11:45 Home Medications Medication Instructions Recorded Confirmed Type clozapine 25 mg tablet 25 mg PO HS 12/17/18 07/21/21 History clozapine 50 mg tablet 50 mg PO HS 12/17/18 07/21/21 History diltiazem HCl 360 mg 360 mg PO QAM 12/17/18 07/21/21 History tablet,extended release 24 hr levothyroxine 75 mcg tablet 75 mcg PO QAM 12/17/18 07/21/21 History lorazepam 1 mg tablet 1 mg PO QPM 12/17/18 07/21/21 History lurasidone 80 mg tablet (Latuda) 80 mg PO HS 12/17/18 07/21/21 History multivitamin 1 tab PO QAM 12/17/18 07/21/21 History polyethylene glycol 3350 17 17 g PO BID 12/17/18 07/21/21 History gram/dose oral powder vitamin B complex 1 tab PO QAM 12/17/18 07/21/21 History glucosamine sulf dipot 550 cap PO DAILY 01/25/19 07/21/21 History chlr,msm,chond 550 mg-C 30 mg-bel 1 mg capsule (Glucosamine Chondroitin) lisinopril 5 mg tablet 7.5 mg PO QAM 11/25/20 07/21/21 History lurasidone 20 mg tablet (Latuda) 20 mg PO HS 11/25/20 07/21/21 History escitalopram oxalate 20 mg tablet 20 mg PO DAILY 05/03/21 07/21/21 History hydrochlorothiazide 12.5 mg tablet 12.5 mg PO DAILY 05/03/21 07/21/21 History lorazepam 1 mg tablet 1 mg PO DAILY PRN 05/03/21 07/21/21 History ciclopirox 0.77 % topical cream 1 applic TOPICAL BID 07/21/21 07/21/21 History deutetrabenazine 12 mg tablet 12 mg PO BID 07/21/21 07/21/21 History ([place]) Patient History Medical History (Updated 07/21/21 @ 20:39 by Niurka Solano MD) Anxiety Bipolar disorder BPH (benign prostatic hyperplasia) Chronic obstructive pulmonary disease controlled Depression Hyperlipidemia HX OF Hypertension Hypothyroidism Kidney tumor LEFT Osteoarthritis Peripheral neuropathy Surgical History H/O prostate biopsy History of bronchoscopy History of colonoscopy History of herniorrhaphy INGUINAL History of tooth extraction Family History Other No significant family history Social History Smoking Status: Former smoker Second Hand Exposure: No; Hx Alcohol Use: Yes Alcohol type: wine Hx Substance Use: No Preferred Language: Hungarian Communication Ability: Effective Criminal Justice Faculty Required: No Beliefs That Will Affect Care: None marital status: Single Current Living Situation: Spouse current occupational status: retired Feels Safe at Home: Yes Safety Concerns: Feels Safe At This Time Assistive Devices: None Review of Systems Review of Systems: Per HPI. He has some shortness of breath at times that he attributes to anxiety. Physical Exam Physical Exam: The patient is alert and oriented. Mood and affect appeared normal. HEENT: Pupils are equal and reactive to light and accommodation. Extraocular movements are intact. The sclerae are anicteric. Neuro: Cranial nerves intact Lungs: Clear to auscultation bilaterally. He has good air movement without use of accessory muscles. No rales wheezes or rhonchi. Cardiac: Heart demonstrates a regular rate and rhythm. Normal S1 and S2. No murmurs on examination. Pulses: The patient has palpable radial pulses bilaterally that are equal in intensity Extremities: There was no evidence of hypoperfusion. There is no cyanosis or clubbing. There is no edema. Skin: I did not appreciate any rashes on examination today. Results & Data ([facility]) Vital Signs (Past 12 Hours) Vital Signs Temp Pulse Resp BP Pulse Ox 07/23/21 14:13 37.1 C 81 17 145/79 H 98 07/23/21 07:27 37.0 C 79 17 147/81 H 93 Laboratory Results Abnormal Lab Results 07/21/21 07/22/21 07/23/21 20:00 20:32 06:39 WBC RBC Hgb Hct MCV MCH MCHC RDW Std Deviation RDW Coeff of Marcial Plt Count MPV Immature Gran % (Auto) Neut % (Auto) Lymph % (Auto) [place] % (Auto) Eos % (Auto) Baso % (Auto) Neut # (Auto) Lymph # (Auto) [place] # (Auto) Eos # (Auto) Baso # (Auto) Immature Gran # (Auto) Sodium Potassium Chloride Carbon Dioxide Anion Gap BUN Creatinine Est Cr Clr Drug Dosing Est GFR ( Amer) Est GFR (Non-Af Amer) BUN/Creatinine Ratio Glucose POC Glucose 106 H Calcium Vitamin B12 Lyme Disease IgG Ab Negative Lyme Disease IgM Ab Equivocal A Urine Legionella Ag SEE NOTE 07/23/21 07/23/21 07/23/21 06:39 06:39 06:39 WBC 8.31 RBC 3.33 L Hgb 9.9 L Hct 29.8 L MCV 89.5 MCH 29.7 MCHC 33.2 RDW Std Deviation 47.2 H RDW Coeff of Marcial 14.3 Plt Count 223 MPV 9.5 Immature Gran % (Auto) 0.0 Neut % (Auto) 79.8 Lymph % (Auto) 12.0 [place] % (Auto) 6.9 Eos % (Auto) 1.1 Baso % (Auto) 0.2 Neut # (Auto) 6.63 H Lymph # (Auto) 1.00 L [place] # (Auto) 0.57 Eos # (Auto) 0.09 Baso # (Auto) 0.02 Immature Gran # (Auto) 0.00 Sodium 137 Potassium 4.4 Chloride 106 Carbon Dioxide 24 Anion Gap 7 BUN 20 Creatinine 1.12 Est Cr Clr Drug Dosing 64.4 Est GFR ( Amer) 76.2 Est GFR (Non-Af Amer) 65.7 BUN/Creatinine Ratio 17.9 Glucose 96 POC Glucose Calcium 8.8 Vitamin B12 370 Lyme Disease IgG Ab Lyme Disease IgM Ab Urine Legionella Ag Diagnostic Findings Echocardiogram performed 07/22/2021 revealed normal LV systolic function. Mild inferior vena cava dilation. Small pericardial effusion. Mild LVH. PG Care Time/CCT Total # of Minutes Spent Total Time Spent with Patient: Total time spent is greater than 50% in coordination of care (as documented) at patient's floor/unit and/or counseling patient: Coding Level of Care Code 68840 Initial Inpt Care Lvl 2 Diagnoses Pericardial effusion I31.3
[2021-07-23] MEDS: cloZAPine 25 MG TAB PO SCH (21:36)
[2021-07-23] MEDS: ENOXAPARIN INJ 40 MG/0.4 ML SYR SQ SCH (21:37)
[2021-07-23] MEDS: LURASIDONE HCL 40 MG TAB PO SCH ×2 (21:37→21:38)
[2021-07-23] MEDS: DOXYCYCLINE HYCLATE 100 MG CAP PO SCH (21:37)
[2021-07-23] MEDS: LORazepam 1 MG TAB PO SCH (21:39)
[2021-07-24 06:11] LABS: Basophils # (auto) 0.01 K/uL (0-0.2); Basophils % (auto) 0.1 %; Eosinophils # (auto) 0.11 K/uL (0-0.5); Eosinophils % (auto) 1.3 %; Hematocrit (blood only) 29.7 % (42-52); Hemoglobin 9.9 g/dL (14.0-18.0); Immature Granulocytes # (auto) 0.03 K/uL (0.00-0.02); Immature Granulocytes % (auto) 0.4 %; Lymphocytes # (auto) 0.95 K/uL (1.2-3.4); Lymphocytes % (auto) 11.1 %; Mean Corpuscular Hemoglobin 29.7 pg (25-34); Mean Corpuscular Hgb Conc 33.3 g/dL (32-36); Mean Corpuscular Volume 89.2 fL (80-100); Mean Platelet Volume 9.3 fL (7.4-10.4); Monocytes % (auto) 14.1 %; Neutrophils # (auto) 6.24 K/uL (1.4-6.5); Platelet Count 231 K/uL (130-400); RDW Coefficient of Variation 14.3 % (11.5-14.5); RDW Standard Deviation 46.7 fL (36.4-46.3); Red Blood Count 3.33 M/uL (4.7-6.1); White Blood Count 8.54 K/uL (4.8-10.8)
[2021-07-24] MEDS: LEVOTHYROXINE SODIUM 75 MCG TABLET PO SCH (06:29)
[2021-07-24 06:33] LABS: Calcium 8.6 mg/dl (8.5-10.1); Creatinine Clr Calc Pharmacy 60.1 ml/min; Est GFR (African American) 70.1 ml/min; Est GFR (Non-African American) 60.5 ml/min
--- NOTE | 2021-07-24 08:20 | Hospitalist Progress Note ---
Date of Service July 24, 2021 Assessment & Plan (1) Pneumonia: Plan: Presented after fall while walking dog -- was unsure of what/when medications taken and likely an acute metabolic encephalopathy from infection CT head no acute finding, atrophy and microvascular ischemic changes CXR Large airspace opacity of the right upper lobe is suggestive of pneumonia. * Follow-up imaging after treatment course is recommended to document resolution. CT Chest * --> acute nondisplaced fracture of posterolateral left 10th rib fracture. ground-glass and airspace opacities of RUL abutting fissure suggestive of pneumonia, f/u after treatment needed to document resolution. Trace pleural effusions with mild bibasilar atelectasis.Prior left nephrectomy. Prostamegaly with evidence of chronic bladder outlet obstruction. Moderate constipation with large and small bowel air-fluid levels. Correlate clinically to exclude enteritis with diarrheal illness. --> Will check stool PCR cx Of note, does have "indeterminate lesions" of bone per heme/onc outpatient notes on previous imaging, but low susp for malignancy--> will need continued f/u Procal 0.15 BCx NGTD -- monitor CRP 14.42 -- likely combination from infection from pneumonia and reactive from anemia WBC 12.1k on admission, currently 8.54k Following COVID 19 (06/21) obtain sputum and blood culture. CURB 65- 3 Cefepime/Azithromycin IV abx on admission, continued w/ temp 37.8/38C 07/21 and repeat bcx obtained * Given likely CAP, switched to Ceftriaxone/Doxycycline (cover for lyme as well) on 07/23 and can consider d/c on Augmentin/Doxy to complete course Low grade temp 37.8C this morning 07/24-- denied feeling warm/febrile. Continue IS/flutter valve. No urinary symptoms reported. WBC wnl at 8.5k Legionella urine NEGATIVE,aspergillus pending Sputum cx light normal krista on preliminary --> monitor final Supplemental O2 as needed -- on ROOM AIR Continue incentive spirometer, flutter valve ECHO for eval of pericardial effusion (?trauma from fall vs infectious/inflammatory) --> LV systolic function normal. RV systolic pressure normal. IVC mildly dilated. Mild concentric LVH --> Lyme equivocal IgM, monitor WB. Denied tick bites or prior hx Lyme Check anaplasma smear for completeness but no elevated LFTs/hepatosplenomegaly/splenomegaly appreciated Will need follow up for limited echo in 1 month per cardiology in abscence of tachy/hypotension or worsening exercise tolerance Stool PCR given diarrhea, NEGATIVE. Had been taking 5 capfuls of miralax a day --> backed to BID. Discussed as he has been dealing with dehydration/diarrhea --> prior episodes of constipation on psychiatric meds and fear of getting constipated --> Discussed metamucil to help bulk stools up, agreeable. --> Started 07/24, had formed brown stool reported morning 07/24 and continue current regimen Monitor overnight but possible d/c tomorrow on PO abx (2) Anemia: Plan: Recent diagnosis per him and partner- further work up pending outside provider. Denied any blood in stool. Last c-scope Dr Christopher ~5 years ago per patient, polyp removed and will need GI f/u at d/c for surveillance as he is currently due HGB 9 on admission Iron studies --> IRON <10 Folate 20.24, but normocytic with MCV 90 and given confusion on admission will also check B12 with AM labs (but did have evidence for PNA on imaging) --> B12 370 could consider replacement but will resume his home B complex and he should continue this at discharge Venofer 300mg x 3 doses while inpatient, just completed morning 07/24 Hgb improved to 9.9 Monitor CBC (3) Rib fracture: Plan: As above Lidocaine patch/tylenol effective at pain control Encouraged continued use incentive spirometer -- doing great and encouraged to continued (4) Chest wall contusion: Plan: WIth rib fracture following dog pulling him into tree - no hemothroax noted - Lidoderm patch and Tylenol for pain -- effective (5) Benign prostatic hyperplasia with urinary obstruction and other lower urinary tract symptoms: Plan: Follows with urology - has been having increasing frequency . UA NEGATIVE, dehydration - PSA 6.85 in December 2020 -- per heme/onc has been stable around 7 - Consider adding agent to assist with symptoms --> denies any issues with urination, holding off on additional measures at this time Continue to monitor (6) History of elevated prostate specific antigen (PSA): Plan: As above -- f/u outpatient with urology (7) Schizophrenia: Plan: Schizophrenia and Bipolar per chart review - symptoms appear controlled - Continue Escitalopram, Ativan, and Latuda (8) Clear cell carcinoma of left kidney: Plan: with Left Nephrectomy- no [facility] chemo- [facility] - Follows with Dr. Markel Haro - No metastatic disease noted on admission but review of note --> indeterminate focus increased activity corresponding to R anterior 5th rib with corresponding mixed lytic and sclerotic lesion on prior CT chest measuring 12mm. Indeterminate focus of activity corresponding to posterior 10th rib, corresponding subtle 6mm lytic and sclerotic focus at this level on prior CT scan. --> CT chest Mar without change in lesions, and although indeterminate, not highly suggestive of metastatic disease. 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 - follow symptoms and fluid volume status Less diarrhea, more formed stool but fixated on not getting constipated Continue Miralax decreased to BID for now and monitor Discussed Metamucil to help bulk up stools given chronic issue but had been taking YAW doses of miralax at home given prior constipation issues with psychiatric medications Check PCR for completeness but he does have reasons to have diarrhea Monitor (10) CKD (chronic kidney disease), stage III: Plan: Follow fluid volume status and renal function - avoid nephrotoxic medications - BP controlled Slightly dry mm but encoruaged to push oral fluids Cr stable BMP in AM (11) Pericardial effusion: Plan: Small, noted on CT chest Check echocardiogram -- small effusion ?from COVID check lyme as well given chronic and ambulation/fall issue --> equivocal --> Changed Azithro to Doxycycline as above. Continue (12) Hypertension: Plan: Continue diltiazem, HCTZ, lisinopril (13) Hypothyroidism: Plan: TSH normal continue home LT4 Plan: Lovenox for DVT Prophylaxis while inpatient Admission and Anticipated Discharge Date Admission Date: July 21, 2021 Supervising Physician Co-Signing Physician Notes Attending Attestation - Chart reviewed, care plan d/w SIMI Read. I agree with the lund components of her documentation. Karri Crawford MD Subjective patient evaluated around lunch doing well got metamucil yesterday with his miralax and had a formed bowel movement this morning. Stool PCR negative. Discussed daily vs QOD dosing of Metamucil to help bulk up stools and rec continues reduced dose of miralax. No fever, chills, chest pain (other than rib pain which is also improved), no abdominal pain, nausea or vomiting or dysuria. Discussed monitoring for temp overnight/await to see if WB back in AM but very likely could d/c in AM on oral abx and have follow up with PCP and Dr Jean Baptiste for continued monitoring given prior breanne indeterminate lesions. Questions/concerns addressed at this time. Review of Systems Review of Systems: All systems reviewed & are unremarkable except as noted in HPI & below Physical Exam Physical Exam: General: well developed, well nourished male, sitting up in chair using incentive spirometer and flutter valve, reading a book, no acute distress, improvement in pallor Head atraumatic, normocephalic ENT: trachea midline, no deviation, mmm Chest: tender to palpation L anterior/posterior chest wall (decreased, lidocaine patch in place) Resp: no cough/tachypnea, no distress or accessory muscle use, bibasilar crackles, no rales/wheezing, on room air CV: RRR, no m/r/g, no edema, calves non-tender, pulses palpable GI: +BS throughout, +distended (less), protuberant belly, non-tender, no guarding/rigidity Ext: normal to inspection, moves all extremities Psych: alert, oriented, pleasant and cooperative, much less anxious about having bowel movements Results & Data Results & Data ([facility]) Vital Signs (Past 12 Hours) Vital Signs Temp Pulse Resp BP Pulse Ox 07/24/21 07:24 37.8 C H 79 16 165/89 H 97 07/23/21 22:15 37.1 C 98 H 20 136/80 97 Laboratory Results 07/24/21 07/24/21 07/23/21 Range/Units 05:43 05:43 06:39 WBC 8.54 (4.8-10.8) K/uL RBC 3.33 L (4.7-6.1) M/uL Hgb 9.9 L (14.0-18.0) g/dL Hct 29.7 L (42-52) % MCV 89.2 (80-100) fL MCH 29.7 (25-34) pg MCHC 33.3 (32-36) g/dL RDW Std Deviation 46.7 H (36.4-46.3) fL RDW Coeff of Marcial 14.3 (11.5-14.5) % Plt Count 231 (130-400) K/uL MPV 9.3 (7.4-10.4) fL Immature Gran % (Auto) 0.4 % Neut % (Auto) 73.0 % Lymph % (Auto) 11.1 % [place] % (Auto) 14.1 % Eos % (Auto) 1.3 % Baso % (Auto) 0.1 % Neut # (Auto) 6.24 (1.4-6.5) K/uL Lymph # (Auto) 0.95 L (1.2-3.4) K/uL [place] # (Auto) 1.20 H (0.11-0.59) K/uL Eos # (Auto) 0.11 (0-0.5) K/uL Baso # (Auto) 0.01 (0-0.2) K/uL Immature Gran # (Auto) 0.03 H (0.00-0.02) K/uL Sodium 139 (136-145) mmol/L Potassium 4.0 (3.5-5.1) mmol/L Chloride 107 (98-107) mmol/L Carbon Dioxide 27 (21-32) mmol/L Anion Gap 5 (3-11) BUN 18 (6-23) mg/dl Creatinine 1.20 (0.6-1.4) mg/dl Est Cr Clr Drug Dosing 60.1 ml/min Est GFR ( Amer) 70.1 ml/min Est GFR (Non-Af Amer) 60.5 ml/min BUN/Creatinine Ratio 15.0 (10-20) Glucose 79 (70-99(Fasting)) mg/dl Calcium 8.6 (8.5-10.1) mg/dl Lyme Disease IgG Ab (Negative) Lyme IgG (Western Blot) Pending Lyme IgG 18 kDa Band Pending Lyme IgG 23 kDa Band Pending Lyme IgG 28 kDa Band Pending Lyme IgG 30 kDa Band Pending Lyme IgG 39 kDa Band Pending Lyme IgG 41 kDa Band Pending Lyme IgG 45 kDa Band Pending Lyme IgG 58 kDa Band Pending Lyme IgG 66 kDa Band Pending Lyme IgG 93 kDa Band Pending Lyme IgM Ab (WB) Pending Lyme Disease IgM Ab (Negative) Lyme IgM 23 kDa Band Pending Lyme IgM 39 kDa Band Pending Lyme IgM 41 kDa Band Pending Urine Legionella Ag 07/23/21 07/21/21 Range/Units 06:39 20:00 WBC (4.8-10.8) K/uL RBC (4.7-6.1) M/uL Hgb (14.0-18.0) g/dL Hct (42-52) % MCV (80-100) fL MCH (25-34) pg MCHC (32-36) g/dL RDW Std Deviation (36.4-46.3) fL RDW Coeff of Marcial (11.5-14.5) % Plt Count (130-400) K/uL MPV (7.4-10.4) fL Immature Gran % (Auto) % Neut % (Auto) % Lymph % (Auto) % [place] % (Auto) % Eos % (Auto) % Baso % (Auto) % Neut # (Auto) (1.4-6.5) K/uL Lymph # (Auto) (1.2-3.4) K/uL [place] # (Auto) (0.11-0.59) K/uL Eos # (Auto) (0-0.5) K/uL Baso # (Auto) (0-0.2) K/uL Immature Gran # (Auto) (0.00-0.02) K/uL Sodium (136-145) mmol/L Potassium (3.5-5.1) mmol/L Chloride (98-107) mmol/L Carbon Dioxide (21-32) mmol/L Anion Gap (3-11) BUN (6-23) mg/dl Creatinine (0.6-1.4) mg/dl Est Cr Clr Drug Dosing ml/min Est GFR ( Amer) ml/min Est GFR (Non-Af Amer) ml/min BUN/Creatinine Ratio (10-20) Glucose (70-99(Fasting)) mg/dl Calcium (8.5-10.1) mg/dl Lyme Disease IgG Ab Negative (Negative) Lyme IgG (Western Blot) Lyme IgG 18 kDa Band Lyme IgG 23 kDa Band Lyme IgG 28 kDa Band Lyme IgG 30 kDa Band Lyme IgG 39 kDa Band Lyme IgG 41 kDa Band Lyme IgG 45 kDa Band Lyme IgG 58 kDa Band Lyme IgG 66 kDa Band Lyme IgG 93 kDa Band Lyme IgM Ab (WB) Lyme Disease IgM Ab Equivocal A (Negative) Lyme IgM 23 kDa Band Lyme IgM 39 kDa Band Lyme IgM 41 kDa Band Urine Legionella Ag SEE NOTE PG Care Time/CCT Total # of Minutes Spent Total Time Spent with Patient: Total time spent is greater than 50% in coordination of care (as documented) at patient's floor/unit and/or counseling patient: Coding Level of Care Code 59430 Subseq Hosp Care Lvl 3 Diagnoses Pneumonia J18.9 Laterality: right Lung location: unspecified part of lung Pneumonia type: due to unspecified organism Anemia D64.9 Anemia type: unspecified type Rib fracture S22.39XA Chest wall contusion S20.212A Encounter type: initial encounter Laterality: left Benign prostatic hyperplasia with urinary obstruction and other lower urinary tract symptoms N40.1; N13.8 History of elevated prostate specific antigen (PSA) Z87.898 Schizophrenia F20.9 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 (1) Anemia Anemia type: unspecified type Qualified Code(s): D64.9 - Anemia, unspecified (2) Chest wall contusion Encounter type: initial encounter Laterality: left Qualified Code(s): S20.212A - Contusion of left front wall of thorax, initial encounter (3) Pneumonia Laterality: right Lung location: unspecified part of lung Pneumonia type: due to unspecified organism Qualified Code(s): J18.9 - Pneumonia, unspecified organism
[2021-07-24] MEDS: LIDOCAINE 5% 1 PATCH TD SCH (08:33)
[2021-07-24] MEDS: lisinopril 2.5 MG TAB PO SCH (08:34)
[2021-07-24] MEDS: hydroCHLOROthiazide 25 MG TAB PO SCH (08:34)
[2021-07-24] MEDS: PSYLLIUM 58.6% POWDER PACKET PO SCH (08:35)
[2021-07-24] MEDS: DOXYCYCLINE HYCLATE 100 MG CAP PO SCH ×2 (08:35→21:13)
[2021-07-24] MEDS: VITAMIN B COMPLEX TAB PO SCH (08:35)
[2021-07-24] MEDS: dilTIAZem HCL 180 MG CAPCR PO SCH (08:35)
[2021-07-24] MEDS: ESCITALOPRAM OXALATE 20 MG TAB PO SCH (08:35)
[2021-07-24] MEDS: POLYETHYLENE (MIRALAX) 17 GM PACK PO SCH ×2 (08:35→21:12)
[2021-07-24] MEDS: IRON SUCROSE 300 MG in SODIUM CHLORIDE 0.9% 250 ML IV SCH (08:46)
[2021-07-24 10:47] LABS: Adenovirus F 40/41 PCR Not Detected (NotDetected); Astrovirus PCR Not Detected (NotDetected); Campylobacter PCR Not Detected (NotDetected); Clostridium diff Toxin A/B PCR Not Detected (NotDetected); Cryptosporidium PCR Not Detected (NotDetected); Cyclospora cayetanensis PCR Not Detected (NotDetected); Entamoeba histolytica PCR Not Detected (NotDetected); Enteroaggregative E.coli(EAEC) Not Detected (NotDetected); Enteropathogenic E.coli (EPEC) Not Detected (NotDetected); Enterotoxigenic E.coli (ETEC) Not Detected (NotDetected); Giardia lamblia PCR Not Detected (NotDetected); Norovirus GI/GII PCR Not Detected (NotDetected); Plesiomonas shigelloides PCR Not Detected (NotDetected); Rotavirus A PCR Not Detected (NotDetected); Salmonella PCR Not Detected (NotDetected); Sapovirus PCR Not Detected (NotDetected); Shiga-like Toxin E.coli (STEC) Not Detected (NotDetected); Shigella/Enteroinvasive E.coli Not Detected (NotDetected); Vibrio cholerae PCR Not Detected (NotDetected); Vibrio species PCR Not Detected (NotDetected); Yersinia enterocolitica PCR Not Detected (NotDetected)
[2021-07-24] MEDS: LORazepam 1 MG TAB PO PRN (13:01)
[2021-07-24] MEDS: cefTRIAXone SODIUM 2,000 MG in DEXTROSE 5% 50 ML IV SCH (16:29)
[2021-07-24] MEDS: cloZAPine 25 MG TAB PO SCH (21:12)
[2021-07-24] MEDS: ENOXAPARIN INJ 40 MG/0.4 ML SYR SQ SCH (21:12)
[2021-07-24] MEDS: LORazepam 1 MG TAB PO SCH (21:13)
[2021-07-24] MEDS: LURASIDONE HCL 40 MG TAB PO SCH ×2 (21:14)
[2021-07-25] MEDS: LEVOTHYROXINE SODIUM 75 MCG TABLET PO SCH (06:29)
--- NOTE | 2021-07-25 08:11 | Hospitalist Progress Note ---
Date of Service July 25, 2021 Assessment & Plan (1) Pneumonia: Plan: Presented after fall while walking dog -- was unsure of what/when medications taken and likely an acute metabolic encephalopathy from infection CT head no acute finding, atrophy and microvascular ischemic changes CXR Large airspace opacity of the right upper lobe is suggestive of pneumonia. * Follow-up imaging after treatment course is recommended to document resolution. CT Chest * --> acute nondisplaced fracture of posterolateral left 10th rib fracture. ground-glass and airspace opacities of RUL abutting fissure suggestive of pneumonia, f/u after treatment needed to document resolution. Trace pleural effusions with mild bibasilar atelectasis.Prior left nephrectomy. Prostamegaly with evidence of chronic bladder outlet obstruction. Moderate constipation with large and small bowel air-fluid levels. Correlate clinically to exclude enteritis with diarrheal illness. --> Will check stool PCR cx Of note, does have "indeterminate lesions" of bone per heme/onc outpatient notes on previous imaging, but low susp for malignancy--> will need continued f/u Procal 0.15 BCx NGTD -- monitor CRP 14.42 -- likely combination from infection from pneumonia and reactive from anemia WBC 12.1k on admission, currently 8.54k Following COVID 19 (06/21) obtain sputum and blood culture. CURB 65- 3 Cefepime/Azithromycin IV abx on admission, continued w/ temp 37.8/38C 07/21 and repeat bcx obtained * Given likely CAP, switched to Ceftriaxone/Doxycycline (cover for lyme as well) on 07/23 and can consider d/c on Augmentin/Doxy to complete course Low grade temp 37.8C this morning 07/24-- denied feeling warm/febrile. Continue IS/flutter valve. No urinary symptoms reported. WBC wnl at 8.5k Legionella urine NEGATIVE,aspergillus pending Sputum cx light normal krista on preliminary --> monitor final Supplemental O2 as needed -- on ROOM AIR Continue incentive spirometer, flutter valve ECHO for eval of pericardial effusion (?trauma from fall vs infectious/inflammatory) --> LV systolic function normal. RV systolic pressure normal. IVC mildly dilated. Mild concentric LVH --> Lyme equivocal IgM, monitor WB. Denied tick bites or prior hx Lyme Check anaplasma smear for completeness but no elevated LFTs/hepatosplenomegaly/splenomegaly appreciated Will need follow up for limited echo in 1 month per cardiology in abscence of tachy/hypotension or worsening exercise tolerance Stool PCR given diarrhea, NEGATIVE. Had been taking 5 capfuls of miralax a day --> backed to BID. Discussed as he has been dealing with dehydration/diarrhea --> prior episodes of constipation on psychiatric meds and fear of getting constipated --> Discussed metamucil to help bulk stools up, agreeable. --> Started 07/24, had formed brown stool reported morning 07/24 and continue current regimen Monitor overnight but possible d/c tomorrow on PO abx (2) Anemia: Plan: Recent diagnosis per him and partner- further work up pending outside provider. Denied any blood in stool. Last c-scope Dr Christopher ~5 years ago per patient, polyp removed and will need GI f/u at d/c for surveillance as he is currently due HGB 9 on admission Iron studies --> IRON <10 Folate 20.24, but normocytic with MCV 90 and given confusion on admission will also check B12 with AM labs (but did have evidence for PNA on imaging) --> B12 370 could consider replacement but will resume his home B complex and he should continue this at discharge Venofer 300mg x 3 doses while inpatient, just completed morning 07/24 Hgb improved to 9.9 Monitor CBC (3) Rib fracture: Plan: As above Lidocaine patch/tylenol effective at pain control Encouraged continued use incentive spirometer -- doing great and encouraged to continued (4) Chest wall contusion: Plan: WIth rib fracture following dog pulling him into tree - no hemothroax noted - Lidoderm patch and Tylenol for pain -- effective (5) Benign prostatic hyperplasia with urinary obstruction and other lower urinary tract symptoms: Plan: Follows with urology - has been having increasing frequency . UA NEGATIVE, dehydration - PSA 6.85 in December 2020 -- per heme/onc has been stable around 7 - Consider adding agent to assist with symptoms --> denies any issues with urination, holding off on additional measures at this time Continue to monitor (6) History of elevated prostate specific antigen (PSA): Plan: As above -- f/u outpatient with urology (7) Schizophrenia: Plan: Schizophrenia and Bipolar per chart review - symptoms appear controlled - Continue Escitalopram, Ativan, and Latuda (8) Clear cell carcinoma of left kidney: Plan: with Left Nephrectomy- no [facility] chemo- [facility] - Follows with Dr. Markel Haro - No metastatic disease noted on admission but review of note --> indeterminate focus increased activity corresponding to R anterior 5th rib with corresponding mixed lytic and sclerotic lesion on prior CT chest measuring 12mm. Indeterminate focus of activity corresponding to posterior 10th rib, corresponding subtle 6mm lytic and sclerotic focus at this level on prior CT scan. --> CT chest Mar without change in lesions, and although indeterminate, not highly suggestive of metastatic disease. 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 - follow symptoms and fluid volume status Less diarrhea, more formed stool but fixated on not getting constipated Continue Miralax decreased to BID for now and monitor Discussed Metamucil to help bulk up stools given chronic issue but had been taking YAW doses of miralax at home given prior constipation issues with psychiatric medications Check PCR for completeness but he does have reasons to have diarrhea Monitor (10) CKD (chronic kidney disease), stage III: Plan: Follow fluid volume status and renal function - avoid nephrotoxic medications - BP controlled Slightly dry mm but encoruaged to push oral fluids Cr stable BMP in AM (11) Pericardial effusion: Plan: Small, noted on CT chest Check echocardiogram -- small effusion ?from COVID check lyme as well given chronic and ambulation/fall issue --> equivocal --> Changed Azithro to Doxycycline as above. Continue (12) Hypertension: Plan: Continue diltiazem, HCTZ, lisinopril (13) Hypothyroidism: Plan: TSH normal continue home LT4 Plan: Lovenox for DVT Prophylaxis while inpatient Admission and Anticipated Discharge Date Admission Date: July 21, 2021 Results & Data Results & Data ([facility]) Vital Signs (Past 12 Hours) Vital Signs Temp Pulse Resp BP BP Pulse Ox 07/25/21 07:26 37.1 C 89 16 148/83 H 95 07/24/21 22:12 156/85 H 07/24/21 22:10 37.4 C 88 18 175/104 H 174/102 H 92 Laboratory Results 07/24/21 07/24/21 Range/Units 08:06 05:43 Stl C. cayetanensis PCR Not Detected (NotDetected) Stool Rotavirus A PCR Not Detected (NotDetected) Stl Adenov F 40/41 PCR Not Detected (NotDetected) Stool Astrovirus (PCR) Not Detected (NotDetected) Stool Campylobacter PCR Not Detected (NotDetected) Stl C. diff Tox A/B PCR Not Detected (NotDetected) Stool Cryptosporidium PCR Not Detected (NotDetected) Stl E.coli Shiga Tox PCR Not Detected (NotDetected) Stl Enterotoxigenic E PCR Not Detected (NotDetected) Stool EPEC (PCR) Not Detected (NotDetected) Stool EAEC (PCR) Not Detected (NotDetected) Stl E. histolytica PCR Not Detected (NotDetected) Stool Giardia Lamblia PCR Not Detected (NotDetected) Stool Salmonella PCR Not Detected (NotDetected) Stool Sapovirus (PCR) Not Detected (NotDetected) Stl P. shigelloides PCR Not Detected (NotDetected) Stl Shigella/EIEC PCR Not Detected (NotDetected) St Y.enterocolitica PCR Not Detected (NotDetected) Stool Vibrio (PCR) Not Detected (NotDetected) Stl Vibrio cholerae PCR Not Detected (NotDetected) Stl Norovirus GI/GII PCR Not Detected (NotDetected) Anaplasma Smear See Comment PG Care Time/CCT Total # of Minutes Spent Total Time Spent with Patient: Total time spent is greater than 50% in coordination of care (as documented) at patient's floor/unit and/or counseling patient: Coding Diagnoses Pneumonia J18.9 Laterality: right Lung location: unspecified part of lung Pneumonia type: due to unspecified organism Anemia D64.9 Anemia type: unspecified type Rib fracture S22.39XA Chest wall contusion S20.212A Encounter type: initial encounter Laterality: left Benign prostatic hyperplasia with urinary obstruction and other lower urinary tract symptoms N40.1; N13.8 History of elevated prostate specific antigen (PSA) Z87.898 Schizophrenia F20.9 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 (1) Pneumonia Laterality: right Lung location: unspecified part of lung Pneumonia type: due to unspecified organism Qualified Code(s): J18.9 - Pneumonia, unspecified organism (2) Anemia Anemia type: unspecified type Qualified Code(s): D64.9 - Anemia, unspecified (3) Chest wall contusion Encounter type: initial encounter Laterality: left Qualified Code(s): S20.212A - Contusion of left front wall of thorax, initial encounter
[2021-07-25 08:36] LABS: Hematocrit (blood only) 31.1 % (42-52); Hemoglobin 10.2 g/dL (14.0-18.0); Mean Corpuscular Hemoglobin 29.3 pg (25-34); Mean Corpuscular Hgb Conc 32.8 g/dL (32-36); Mean Corpuscular Volume 89.4 fL (80-100); Mean Platelet Volume 8.9 fL (7.4-10.4); Platelet Count 275 K/uL (130-400); RDW Coefficient of Variation 14.4 % (11.5-14.5); RDW Standard Deviation 47.1 fL (36.4-46.3); Red Blood Count 3.48 M/uL (4.7-6.1); White Blood Count 9.72 K/uL (4.8-10.8)
[2021-07-25] MEDS: LIDOCAINE 5% 1 PATCH TD SCH (08:46)
[2021-07-25] MEDS: PSYLLIUM 58.6% POWDER PACKET PO SCH (08:49)
[2021-07-25] MEDS: VITAMIN B COMPLEX TAB PO SCH (08:49)
[2021-07-25] MEDS: DOXYCYCLINE HYCLATE 100 MG CAP PO SCH (08:49)
[2021-07-25] MEDS: ESCITALOPRAM OXALATE 20 MG TAB PO SCH (08:49)
[2021-07-25] MEDS: lisinopril 2.5 MG TAB PO SCH (08:50)
[2021-07-25] MEDS: hydroCHLOROthiazide 25 MG TAB PO SCH (08:50)
[2021-07-25] MEDS: POLYETHYLENE (MIRALAX) 17 GM PACK PO SCH (08:51)
[2021-07-25] MEDS: dilTIAZem HCL 180 MG CAPCR PO SCH (08:51)
[2021-07-25 08:57] LABS: BUN Creatinine Ratio 19.5 (10-20); Calcium 8.9 mg/dl (8.5-10.1); Creatinine Clr Calc Pharmacy 63.9 ml/min; Est GFR (African American) 75.4 ml/min; Potassium 4.7 mmol/L (3.5-5.1)
[2021-07-25 09:24] LABS: Basophils # (auto) 0.02 K/uL (0-0.2); Basophils % (auto) 0.2 %; Eosinophils # (auto) 0.08 K/uL (0-0.5); Eosinophils % (auto) 0.8 %; Immature Granulocytes # (auto) 0.03 K/uL (0.00-0.02); Immature Granulocytes % (auto) 0.3 %; Lymphocytes % (auto) 8.1 %; Monocytes # (auto) 1.23 K/uL (0.11-0.59); Monocytes % (auto) 12.5 %; Neutrophils # (auto) 7.69 K/uL (1.4-6.5); Neutrophils % (auto) 78.1 %
--- NOTE | 2021-07-25 10:17 | Discharge Summary ---
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 Patient comes to the emergency room today for complaints of being pulled over by a dog he was walking and getting knocked into a tree and then falling down on the ground, this resulted in him not being able to get up and having left lateral sided chest pain. During his workup to rule out any acute fracture/injury it was noted on his chest CXR to have opacity on the right upper lobe. Overall the patient states that he has not been feeling well over the past week with complaints of cough, body aches, subjective fevers, and generalized weakness. He and his partner have felt ill over the weekend with the above symptoms. He is un-unsure what he is coughing up because he has not been expectorating this out but does note that he is bringing up more sputum than normal. Also endorses difficulty remembering his medications over the past few days and unsure what he took this morning. The patient also has been experiencing diarrhea over the past 3 weeks in the night time which has led him to stop taking his iron supplementation routinely because he thought this may have been contributing to this. His lab work was notable for anemia, elevated WBC count with increase in NLR and anemia to 9.2. His partner and him note that this was noted a few weeks back and is undergoing further work up with his oncologist. He follows with Dr. Markel Haro. The do not endorse any change in color of stools, abdominal pain or hematemesis. Patient will be admitted for Pneumonia treatment, follow his laboratory response and blood/sputum cultures. Provide pain relief for his rib fracture and will follow up on his aenemia labs. In the EMD the patient had CXR, CT of the chest and abd/pelvis/Cervical done following his being pulled into tree and ground with dog. These were NOT notable for any acute cervical trauma/acute bone fracture/pelvis fracture, but did note left sided rib fracture and enteritis. Admission Exam Per Admitting Provider PHYSICAL EXAM: General: awake, alert, no apparent distress Head: Normocephalic, atraumatic ENT: PERRL, EOMI, no pharyngeal exudate, mucous membranes moist Neuro: AAO x 3, speech clear and appropriate, strength intact bilaterally 5/5, sensation intact and equal all extremities and dermatomes, no pronator drift Chest: equal rise and fall of the chest, no accessory muscle use, no heaves or thrills, scattered rhonchi right > left, on room air Cardiac: Regular rate and rhythm, telemetry reviewed, skin warm dry, cap refill <3 seconds, peripheral pulses +2 no JVD, no murmur, no JVD, no edema GI: NABS x 4 quadrants, softly distended, nontender to palpation, no rebound, guarding or tenderness : Spontaneously voiding, no pain, no CVA tenderness, Extremities: Normal inspection, no peripheral edema or erythema, calfs nontender to palpation Psych: Normal mood and affect Skin: no rash or erythema Principal Diagnosis Pneumonia, Anemia Discharge Exam General: well developed, well nourished male, sitting up in chair using incentive spirometer and flutter valve, reading a book, no acute distress, improvement in pallor Head atraumatic, normocephalic ENT: trachea midline, no deviation, mmm Chest: tender to palpation L anterior/posterior chest wall (decreased, lidocaine patch in place) Resp: no cough/tachypnea, no distress or accessory muscle use, bibasilar crackles, no rales/wheezing, on room air CV: RRR, no m/r/g, no edema, calves non-tender, pulses palpable GI: +BS throughout, +distended (MUCH less, softener) non-tender, no guarding/rigidity Ext: normal to inspection, moves all extremities Psych: alert, oriented, pleasant and cooperative, much less anxious about having bowel movements Discharge Data Allergies Allergy/AdvReac Type Severity Reaction Status Date / Time Penicillins Allergy Unknown UNKNOWN Verified 07/21/21 11:45 REACTION - HAPPENED A CHILD oxycodone [From OxyContin] AdvReac Intermediate Fainting Unverified 07/21/21 11:45 Consultations 07/21/21 13:37 ED Decision to Admit Stat 07/23/21 11:06 Consult Cardiology Routine Ordered Studies Abdomen/Pelvis CT 07/21/21 11:[address] WITH CONTRAST; CT ABDOMEN AND PELVIS WITH IV CONTRAST ONLY HISTORY: Acute chest and abdominal trauma status post fall fall TECHNIQUE: Multiaxial CT images of the chest, abdomen and pelvis were performed following the IV administration of 93 cc of Optiray. A dose lowering technique was utilized adhering to the principles of ALARA. COMPARISON: CT abdomen and pelvis 02/22/2021, chest CT 10/18/2020, chest radiograph 05/03/2021 FINDINGS: CT CHEST: 1.6 cm right-sided thyroid nodule. No lymphadenopathy identified. The heart is mildly enlarged. Small pericardial effusion. There is no thoracic aortic aneurysm or dissection. Patency of the imaged great vessels. Unremarkable pulmonary artery. Trace pleural effusions. No pneumothorax or overt pulmonary edema. Mild dependent subsegmental bibasilar atelectasis. Airspace opacities of the right upper lobe with surrounding groundglass density percent around a focal 6.2 x 7.4 x 6.1 cm airspace density on image 129. 3 mm solid nodule of the right lung apex on image 61. 3 mm solid nodule of the right upper lobe on image 67. Both of these nodules appear stable from prior. Mild generalized body wall edema. Several subcentimeter bilateral rib lesions (please see bookmarks) appear stable from prior. Subtle acute nondisplaced fracture of the posterolateral left 10th rib. CT ABDOMEN/PELVIS: No pneumatosis or pneumoperitoneum. The spleen is mildly enlarged, 13.2 cm in length. Unremarkable pancreas and right adrenal gland. Unchanged nodular thickening of the left adrenal gland suggestive of hyperplasia with possible underlying adrenal myolipoma measuring 1.9 cm. Distended gallbladder with equivocal sludge versus cholelithiasis. There are a few scattered hypodensities again noted throughout the liver which are too small to characterize measuring up to 6 mm within the left hepatic lobe an approximately 7 mm within the right hepatic lobe. Patency of the hepatic and portal veins. There are a few cysts of the right kidney redemonstrated measuring up to approximately 2 cm. Cortical scarring of the posterior interpolar right kidney. No right-sided hydronephrosis. Left nephrectomy. No mass or lesion identified within the left nephrectomy bed. Moderately distended urinary bladder with wall thickening. Urinary bladder wall trabeculation with small diverticulum along the anterior superior dome of the bladder. Prostamegaly. Atherosclerosis of the aorta. No definite adenopathy. Mild generalized body wall edema with mesenteric edema. No bowel obstruction. Moderate fecal retention. Scattered air-fluid levels are noted throughout the large and small bowel. Hyperdense foci are again noted within the appendix suggestive of retained enteric contrast versus appendicolith. The visualized appendix appears noninflamed.. Degenerative changes of the spine, pelvis and hips. 10 mm anterolisthesis L5 on S1 redemonstrated with chronic L5 pars defects. Ill-defined scattered sclerotic foci of the ribs and right iliac bone redemonstrated. No definite acute fracture identified. IMPRESSION: 1. Acute nondisplaced fracture of the posterolateral left 10th rib. No pneumothorax or acute solid organ injury. 2. Groundglass and airspace opacities of the right upper lobe abutting the fissure are suggestive of pneumonia. Follow-up imaging after treatment course is needed to document resolution. 3. Trace pleural effusions with mild bibasilar atelectasis. 4. Prior left nephrectomy. 5. Prostamegaly with evidence of chronic bladder outlet obstruction. 6. Moderate constipation with large and small bowel air-fluid levels. Correlate clinically to exclude enteritis with diarrheal illness. 7. Additional findings as above. ACT 112: Negative or not required by law. Electronically signed by: Viet Dasilva M.D. 07/21/2021 1:[address] 07/21/21 11:[address] DOSE: 1723.39 mGy.cm HISTORY: fall TECHNIQUE: Multiaxial CT images of the cervical spine were performed and reformatted in the sagittal and coronal plane without the use of contrast. A dose lowering technique was utilized adhering to the principles of ALARA. COMPARISON: Cervical spine CT 11/25/2020. FINDINGS: No fractures within the cervical spine. The C2-C3 facets are fused. There is partial fusion of the C2-C3 vertebral bodies. There is 3 mm of anterolisthesis of C4 on C5 likely due to long-standing degenerative change. Moderate degenerative disc disease and facet osteoarthritis is again noted. Prevertebral soft tissues and the C1-C2 interval are intact. No pneumothorax. IMPRESSION: No fractures within the cervical spine. ACT 112: Negative or not required by law. Electronically signed by: Rupert Verduzco M.D. 07/21/2021 1:[address] 07/21/21 11:[address] WITH CONTRAST; CT ABDOMEN AND PELVIS WITH IV CONTRAST ONLY HISTORY: Acute chest and abdominal trauma status post fall fall TECHNIQUE: Multiaxial CT images of the chest, abdomen and pelvis were performed following the IV administration of 93 cc of Optiray. A dose lowering technique was utilized adhering to the principles of ALARA. COMPARISON: CT abdomen and pelvis 02/22/2021, chest CT 10/18/2020, chest ra diograph 05/03/2021 FINDINGS: CT CHEST: 1.6 cm right-sided thyroid nodule. No lymphadenopathy identified. The heart is mildly enlarged. Small pericardial effusion. There is no thoracic aortic aneury sm or dissection. Patency of the imaged great vessels. Unremarkable pulmonary artery. Trace pleural effusions. No pneumothorax or overt pulmonary edema. Mild dependent subsegmental bibasilar atelectasis. Airspace opacities of the right upper lobe with surrounding groundglass density percent around a focal 6.2 x 7.4 x 6.1 cm airspace density on image 129. 3 mm solid nodule of the right lung apex on image 61. 3 mm solid nodule of the right upper lobe on image 67. Both of these nodules appear stable from prior. Mild generalized body wall edema. Several subcentimeter bilateral rib lesions (please see bookmarks) appear stable from prior. Subtle acute nondisplaced fracture of the posterolateral left 10th rib. CT ABDOMEN/PELVIS: No pneumatosis or pneumoperitoneum. The spleen is mildly enlarged, 13.2 cm in length. Unremarkable pancreas and right adrenal gland. Unchanged nodular thickening of the left adrenal gland suggestive of hyperplasia with possible underlying adrenal myolipoma measuring 1.9 cm. Distended gallbladder with equivocal sludge versus cholelithiasis. There are a few scattered hypodensities again noted throughout the liver which are too small to characterize measuring u p to 6 mm within the left hepatic lobe an approximately 7 mm within the right hepatic lobe. Patency of the hepatic and portal veins. There are a few cysts of the right kidney redemonstrated measuring up to approximately 2 cm. Cortical scarring of the posterior interpolar right kidney. No right-sided hydronephrosis. Left nephrectomy. No mass or lesion identified within the left nephrectomy bed. Moderately distended urinary bladder with wall thickening. Urinary bladder wall trabeculation with small diverticulum along the anterior superior dome of the bladder. Prostamegaly. Atherosclerosis of the aorta. No definite adenopathy. Mild generalized body wall edema with mesenteric edema. No bowel obstruction. Moderate fecal retention. Scattered air-fluid levels are noted throughout the large and small bowel. Hyperdense foci are again noted within the appendix suggestive of retained enteric contrast versus appendicolith. The visualized appendix appears noninflamed.. Degenerative changes of the spine, pelvis and hips. 10 mm anterolisthesis L5 on S1 redemonstrated with chronic L5 pars defects. Ill-defined scattered sclerotic foci of the ribs and right iliac bone redemonstrated. No definite acute fracture identified. IMPRESSION: 1. Acute nondisplaced fracture of the posterolateral left 10th rib. No pneumothorax or acute solid organ injury. 2. Groundglass and airspace opacities of the right upper lobe abutting the fissure are suggestive of pneumonia. Follow-up imaging after treatment course is needed to document resolution. 3. Trace pleural effusions with mild bibasilar atelectasis. 4. Prior left nephrectomy. 5. Prostamegaly with evidence of chronic bladder outlet obstruction. 6. Moderate constipation with large and small bowel air-fluid levels. Correlate clinically to exclude enteritis with diarrheal illness. 7. Additional findings as above. ACT 112: Negative or not required by law. Electronically signed by: Viet Dasilva M.D. 07/21/2021 1:44 PM Chest X-Ray 07/21/21 11:35 XR chest 1V portable HISTORY: 71 years-old Male weakness acute weakness with chest pain COMPARISON: Chest radiograph 05/03/2021 TECHNIQUE: Portable AP view the chest FINDINGS: Cardiac mediastinal and hilar silhouettes are within normal limits. There is a large airspace opacity of the right upper lobe abutting the fissure. This m easures over 9 cm. No pneumothorax, pleural effusion or overt pulmonary edema. Degenerative changes of the shoulders and spine. Surgical anchor of the right humeral head. IMPRESSION: Large airspace opacity of the right upper lobe is suggestive of pneumonia. Follow-up imaging after treatment course is recommended to document resolution. ACT 112: Negative or not required by law.r The above report was generated using voice recognition software. It may contain grammatical, syntax or spelling errors. Electronically signed by: Viet Dasilva M.D. 07/21/2021 12:[address] 07/21/21 11:[address] DOSE: HISTORY: fall TECHNIQUE: Multiaxial CT images of the head were performed without the use of intravenous contrast. Automated exposure control was utilized for this study. A dose lowering technique was utilized adhering to the principles of ALARA. Comparison: None. Findings: The paranasal sinuses and mastoid air cells are clear. The calvarium and skull base are intact. There is no mass, hematoma, midline shift, acute infarct. White matter hypodensity is nonspecific but suggestive of microvascular ischemic change. The ventricles and sulci demonstrate mild age-related involutional changes. Impression: No acute intracranial abnormality. Atrophy and microvascular ischemic changes. ACT 112: Negative or not required by law. Electronically signed by: Rupert Verduzco M.D. 07/21/2021 1:02 PM 07/22/21 ECHOCARDIOGRAM Left ventricular systolic function normal. EF 55-60%. RV systolic pressure normal. IVC mildly dilated. Small pericardial effusion. Mild concentric LVH Hospital Course (1) Pneumonia: Presented after fall while walking dog -- was unsure of what/when medications taken and likely an acute metabolic encephalopathy from infection CT head no acute finding, atrophy and microvascular ischemic changes CXR Large airspace opacity of the right upper lobe is suggestive of pneumonia. * Follow-up imaging after treatment course is recommended to document resolution. CT Chest * --> acute nondisplaced fracture of posterolateral left 10th rib fracture. ground-glass and airspace opacities of RUL abutting fissure suggestive of pneumonia, f/u after treatment needed to document resolution. Trace pleural effusions with mild bibasilar atelectasis.Prior left nephrectomy. Prostamegaly with evidence of chronic bladder outlet obstruction. Moderate constipation with large and small bowel air-fluid levels. Correlate clinically to exclude enteritis with diarrheal illness. --> Will check stool PCR cx Of note, does have "indeterminate lesions" of bone per heme/onc outpatient notes on previous imaging, but low susp for malignancy--> will need continued f/u Procal 0.15 BCx NGTD -- monitor CRP 14.42 -- likely combination from infection from pneumonia and reactive from anemia WBC 12.1k , wnl on repeat Following COVID 19 (06/21) obtain sputum and blood culture. CURB 65- 3 Cefepime/Azithromycin IV abx on admission, continued w/ temp 37.8/38C 07/21 and repeat bcx obtained (NGTD) * Given likely CAP, switched to Ceftriaxone/Doxycycline (cover for lyme as well) on 07/23 and discharged on Doxycycline/Augmentin to complete course (of note, given doxy for extended course for possible +lyme on equivocal testing in patient with effusion) Legionella urine NEGATIVE,aspergillus pending Sputum cx light normal krista on preliminary Supplemental O2 as needed --stable on room air since admission Continued incentive spirometer, flutter valve -- given to patient to continue at home ECHO for eval of pericardial effusion (?trauma from fall vs infectious/inflammatory) --> LV systolic function normal. RV systolic pressure normal. IVC mildly d ilated. Mild concentric LVH --> Lyme equivocal IgM, monitor WB. Denied tick bites or prior hx Lyme Check anaplasma smear for completeness but no elevated LFTs/hepatosplenome julius/splenomegaly appreciated Will need follow up for limited echo in 1 month per cardiology in absence of tachy/hypotension or worsening exercise tolerance --> GIven rx to CM to arrange with PCP for follow up Stool PCR given diarrhea, NEGATIVE. Had been taking 5 capfuls of miralax a day --> backed to BID. Discussed as he has been dealing with dehydration/diarrhea --> prior episodes of constipation on psychiatric meds and fear of getting constipated --> Discussed metamucil to help bulk stools up, agreeable. --> Started 07/24, had formed brown stool reported morning 07/24 and continue current regimen at discharge (2) Anemia: Recent diagnosis per him and partner- further work up pending outside provider. Denied any blood in stool. Last c-scope Dr Christopher ~5 years ago per patient, polyp removed and will need GI f/u at d/c for surveillance as he is currently due HGB 9 on admission Iron studies --> IRON <10 Folate 20.24, but normocytic with MCV 90 and given confusion on admission will also check B12 with AM labs (but did have evidence for PNA on imaging) --> B12 370 could consider replacement but will resume his home B complex and he should continue this at discharge Venofer 300mg x 3 doses while inpatient Hgb 10.2 prior ti discharge Asked nurse navigator to arrange for f/u GI for c-scope with one of Dr Oviedo partners as seen by [facility] in the past Also to follow up with Dr Jean Baptiste from heme/onc for continued monitoring of indeterminate rib lesions/monitoring of his prior renal ca/thyroid nodules/pulm nodules/rib lesions (3) Rib fracture: As above Lidocaine patch/tylenol effective at pain control-- continued at discharge for pain control, very effective Encouraged continued use incentive spirometer -- doing great and encouraged to continue at discharge (4) Chest wall contusion: WIth rib fracture following dog pulling him into tree - no hemothroax noted - Lidoderm patch and Tylenol for pain -- effective (5) Benign prostatic hyperplasia with urinary obstruction and other lower urinary tract symptoms: Follows with urology - has been having increasing frequency . UA NEGATIVE, dehydration - PSA 6.85 in December 2020 -- per heme/onc has been stable around 7 Consider adding agent to assist with symptoms --> denies any issues with urination, holding off on additional measures at this time and continued with good bowel regimen and movements and no further issues reported Follow up with urology outpatient as previously scheduled (6) History of elevated prostate specific antigen (PSA): As above -- f/u outpatient with urology (7) Schizophrenia: Schizophrenia and Bipolar per chart review - symptoms appeared controlled - Continued Escitalopram, Ativan, and Latuda (8) Clear cell carcinoma of left kidney: with Left Nephrectomy- 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 Markel Haro - No metastatic disease noted on admission but review of note --> indeterminate focus increased activity corresponding to R anterior 5th rib with corresponding mixed lytic and sclerotic lesion on prior CT chest measuring 12mm. Indeterminate focus of activity corresponding to posterior 10th rib, corresponding subtle 6mm lytic and sclerotic focus at this level on prior CT scan. --> CT chest Mar without change in lesions, and although indeterminate, not highly suggestive of metastatic disease. Will need f/u heme/onc at d/c for continued monitoring of blood counts/anemia an d surveillance and treatment of such as also with 2 lung nodules and thyroid nodules (9) Diarrhea: Acute on chronic likely related to post COVID enteritis Less diarrhea, more formed stool but fixated on not getting constipated (had been taking 5 capfuls of miralax daily for fear of becoming constipated as he has had issues with in the past) Continued Miralax decreased to BID for now and patient with formed stools now that metamucil ordered Check PCR for completeness but he does have reasons to have diarrhea - NEGATIVE (10) CKD (chronic kidney disease), stage III: IVF provided for dehydration Cr stable on labs (11) Pericardial effusion: Small, noted on CT chest Check echocardiogram -- small effusion ?from COVID check lyme as well given chronic and ambulation/fall issue --> equivocal and 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 During your stay at [facility], we have made an effort to correct the problem that brought you to the hospital while keeping you as comfortable as possible. Medications were used to bring your condition under control and your discharge instructions will include directions for any medications you should take after leaving the hospital. Please make sure you see your Primary Care Provider as part of your follow up plan. Activity: Resume your previous activity Non-emergency contact: Primary Care Provider, Multimedia Author and Oncologist Call non-emergency contact if: you have any medication questions, your symptoms worsen and you have a fever Follow-up/Referrals: Avinash Orozco MD [Physician] - (follow-up limited echocardiogram 1 month per report) Ezra Jean Baptiste MD [Family Provider] - Sung Gilbert MD [Primary Care Provider] - (please call off to schedule appointment. ) Diet: Heart Healthy Addtl Attending Provider Instructions: You have been hospitalized and found to have a pneumonia. Sputum culture did not show any specific species, and you were treated with broad spectrum antibiotics and are being discharge on a course of Augmentin and Doxycycline to cover both broad spectrum and atypical bacteria. * Augmentin 1 tablet by mouth TWICE a day for another 5 days * Doxycycline 1 tablet by mouth TWICE a day for another 12 days (3 more for the pneumonia, 12 total to complete course for possible Lyme as below) You should have repeat imaging of the chest in month to ensure resolution, as well as repeat ECHOCARDIOGRAM (ultrasound of your heart) to ensure this is resolved. You were seen by Dr Orozco from Cardiology while in the hospital and this is a small amount of fluid which did not cause symptoms and felt could be related to trauma or possibly the Lyme like we talked about. This could have been from trauma from the fall, but given confusion (CT of the head was NEGATIVE for stroke) a Lyme test was ordered, which was equivocal and western blot testing was sent out for confirmation testing but you will complete 14 day course of Doxycycline to cover for lungs as above that will also cover for this. Your iron was low (anemia) and you were given replacement of this while int [facility] and your hemoglobin has improved greatly. You will need follow up with GI outpatient for colonoscopy for continued monitoring. For your bowels -- recommend backing down to 3-4 doses of miralax a day and as discussed, may be beneficial to add metamucil (fiber) to help bulk up stools. Stool culture was negative for any infectious etiology. You should follow up with Dr Jean Baptiste from oncology for continued monitoring and evaluation of anemia/replacement of iron as needed. You can continue to use lidocaine patch and tylenol for tib pain. Please continue to use the incentive spirometer to help keep your lungs well functioning. You should follow up with your PCP in the next 7-10 days to monitor your progress. Please return to the emergency department with any fever, chest pain, worsening shortness of breath, or for any other symptoms concerning for you. Take care! Pending Studies at Discharge: Yes Studies:: Western Blot pending Stand-Alone Forms: My [facility] Medications and DC Order Prescriptions: New doxycycline hyclate 100 mg Capsule 100 mg PO BID 12 Days Qty: 24 RF: 0 lidocaine 5 % Adhesive Patch,Medicated 1 patch transdermal QAM Qty: 3 RF: 0 Metamucil (with sugar) 3.4 gram Powder In Packet 1 pkg PO QAM Qty: 5 RF: 0 amoxicillin-pot clavulanate 875-125 mg tablet 1 tab PO BID Qty: 12 RF: 0 Continued clozapine 25 mg tablet 25 mg PO HS RF: 0 clozapine 50 mg tablet 50 mg PO HS RF: 0 multivitamin Tablet 1 tab PO QAM RF: 0 levothyroxine 75 mcg tablet 75 mcg PO QAM RF: 0 vitamin B complex Tablet 1 tab PO QAM RF: 0 lorazepam 1 mg tablet 1 mg PO QPM RF: 0 polyethylene glycol 3350 17 gram/dose powder 17 g PO BID RF: 0 diltiazem HCl 360 mg tablet extended release 24 hr 360 mg PO QAM RF: 0 Latuda 80 mg tablet 80 mg PO HS RF: 0 Glucosamine Chondroitin 550-30-1 mg Capsule 550 cap PO DAILY RF: 0 lorazepam 1 mg tablet 1 mg PO DAILY PRN (Reason: breakthrough anxiety) RF: 0 hydrochlorothiazide 12.5 mg tablet 12.5 mg PO DAILY RF: 0 escitalopram oxalate 20 mg tablet 20 mg PO DAILY RF: 0 ciclopirox 0.77 % cream 1 applic TOPICAL BID RF: 0 Austedo 12 mg tablet 12 mg PO BID RF: 0 lisinopril 5 mg tablet 7.5 mg PO QAM RF: 0 Latuda 20 mg tablet 20 mg PO HS RF: 0 Discharge Orders: Discharge Order (Routine); Ordered 07/25/21 Ordered By: Shae Read Admission Data Admit Date/Time: 07/21/21 14:50 Attending Provider: Karri Crawford Admit Provider: Niurka Solano Primary Care Provider: Sung Gilbert Other Providers: Niurka Solano ; Amor Santo Other Interventions: Discharge Summary Assessment (RN) Last Done: 07/25/21 11:03 Coding Level of Care Code D/C DAY MANAGEMENT >30 MINS Diagnoses Pneumonia J18.9 Laterality: right Lung location: unspecified part of lung Pneumonia type: due to unspecified organism Anemia D64.9 Anemia type: unspecified type Rib fracture S22.39XA Chest wall contusion S20.212A Encounter type: initial encounter Laterality: left Benign prostatic hyperplasia with urinary obstruction and other lower urinary tract symptoms N40.1; N13.8 History of elevated prostate specific antigen (PSA) Z87.898 Schizophrenia F20.9 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
[2021-07-25] MEDS: LORazepam 1 MG TAB PO PRN (11:52)
[2021-07-26 00:47] LABS: 18KDIGG Band NON-REACTIVE; 23KDIGG Band NON-REACTIVE; 23KDIGM Band NON-REACTIVE; 28KDIGG Band NON-REACTIVE; 30KDIGG Band NON-REACTIVE; 39KDIGG Band NON-REACTIVE; 39KDIGM Band NON-REACTIVE; 41KDIGG Band NON-REACTIVE; 41KDIGM Band NON-REACTIVE; 45KDIGG Band NON-REACTIVE; 58KDIGG Band NON-REACTIVE; 66KDIGG Band NON-REACTIVE; 93KDIGG Band NON-REACTIVE; Lyme Antibodies, WB IgG NEGATIVE (NEGATIVE); Lyme Antibodies, WB IgM NEGATIVE (NEGATIVE)
[2021-07-27 01:43] LABS: Aspergillus Flavus Negative (Negative); Aspergillus Niger Negative (Negative)
== END 2021-07-25 13:01 | disposition home or self-care (01) | DRG 193 ==
LOC: ED 10:54 → EDINP 14:50 → SUATTDRO 14:50 → 3E 15:48

== ENCOUNTER 2024-09-06 19:39 | Inpatient (IN) ==
[2024-09-06 21:01] LABS: Appearance Urine Clear (Clear); Bilirubin Urine Negative (Negative); Blood Urine Negative (Negative); Color Urine Yellow; Glucose Urine UA Negative (Negative); Ketones Urine Trace (Negative); Leukocyte Esterase Urine Negative (Negative); Nitrite Urine Negative (Negative); Protein Urine Negative (Negative); Specific Gravity Urine 1.017 (1.000-1.030); Urobilinogen Urine Negative (Negative); pH Urine 6.5 (4.5-7.5)
--- NOTE | 2024-09-06 21:01 | Emergency Department Note ---
Impression & Plan Anxiety, Hallucinations, Tremor, Acute dehydration ED Provider Note NAME: DANI WALLACE III AGE: 74 SEX: M : 1950 ARRIVES VIA: Walk-In INFORMANT: Patient, ex- ED PROVIDER(S): Clarence Medina MD CHIEF COMPLAINT: Anxiety, delusions MEDICAL DECISION MAKING: Patient presents with the above. Blood work was obtained. After further discussion with case management they believe the patient may benefit from further testing or that 3 S. may request further screener given his age for geriatric psychiatry. The patient was ordered additionally CT head chest x-ray and EKG. EKG the patient is tremulous and does have significant motion artifact. Patient's chest x-ray does not show obvious pneumonia or pneumothorax and CT head does not show obvious ICH. Patient's blood work shows a normal white count hemoglobin 11.5 relatively chronic and stable. The patient's platelet count is unremarkable. Kidney function with. 1.41 which is slightly higher than his baseline. But the patient is tolerating by mouth. Patient was drinking fluids without issue. Urinalysis shows trace ketones. Salicylate Tylenol alcohol negative. COVID- negative UDS negative. Patient signed out to Dr. Duenas pending re-evaluation and disposition. Discussion w/ other healthcare providers: ED case management Prior /Outside records reviewed: None Differential diagnosis: Mood disorder, infection, hypoglycemia, electrolyte abnormalities, dehydration, medication side effect among others were considered. Diagnostics, as interpreted by me: ECG: Significant motion artifact, ventricular rate of 66, possible right bundle branch block pattern. Medical decision rules: None Imaging studies: I informally interpreted the patient's chest x-ray does not show obvious pneumonia or pneumothorax with formal report to follow. HPI: Patient states that he feels as though he may harm himself. The patient states that has had increasing anxiety as well as delusions. The patient states that sometimes he wakes from a dream where he thinks he may have harm somebody but is unsure as to whether or not it actually happened. He does report that the auditory hallucinations are at baseline but they have worsened significantly along with his visual hallucinations. States that he has had worsening anxiety and tremors. Patient's sleep is gotten worse. Patient does have a prior history of schizophrenia and states that he has had stability for about the last 20 years but in the last several weeks he has had worsening symptoms. The patient states that he is compliant with his medications. He did take some Ativan around 11 AM today 0.5 mg. Patient accompanied by his ex-. They currently do live together. Patient reports that he feels as though this he is suffering from psychosis and that he is doing horrible things including breaking into somebody's bedroom and killing them. He is requesting admission. Patient is also concerned about his car he gets anxious this is a new vehicle with a lot of electronics that are unfamiliar to him. Patient reports that his tremors do seem to worsen. PAST MEDICAL HISTORY: See Below PAST SURGICAL HISTORY: See Below SOCIAL HISTORY: See Below HOME MEDICATIONS: See Below ALLERGIES: See Below VITALS: See Below PHYSICAL EXAMINATION: GENERAL: NAD, non-toxic. EYE EXAM: Normal conjunctiva. PERRL, no anisocoria and EOM's grossly intact w/o pain. OROPHARYNX: Moist mucus membranes, grossly normal dentition. NECK: Trachea midline, no stridor. Supple, no nuchal rigidity, no adenopathy, non-tender. No signs of meningismus. FROM of the neck with good chin to chest and neck extension. LUNGS: Clear to auscultation. Normal chest wall mechanics. HEART: NSR, no MRG. ABDOMEN: Abdomen soft, non-tender, no masses, no rebound or guarding. BACK: No CVA TTP. SKIN: No rashes and no bruising. UPPER EXTREMITIES: Upper extremities are grossly normal. LOWER EXTREMITIES: Grossly normal, no edema. NEURO EXAM: A&O x3, cranial nerves II-XII grossly intact, normal speech, moves all 4 extremities. Past Med/Surg History Problem List (Updated 09/06/24 @ 23:29 by Clarence Medina MD) Acute dehydration (Acute) Tremor (Acute) Anxiety (Acute) Acute UTI (Acute) Hallucinations (Acute) Urge incontinence Anemia Contusion of left knee Dehydration Foot pain Hypokalemia Popliteal cyst Vomiting and diarrhea Vomiting and diarrhea Weakness Encounter for pre-operative examination Renal mass Chest pain Clear cell carcinoma of left kidney Spermatocele (Acute) Schizophrenia (Acute) History of elevated prostate specific antigen (PSA) (Acute) Benign prostatic hyperplasia with urinary obstruction and other lower urinary tract symptoms (Acute) Pneumonia (Acute) Anemia (Acute) Acute hypotension (Acute) Chest wall contusion (Acute) Fall (Acute) Diarrhea Rib fracture CKD (chronic kidney disease), stage III Pericardial effusion Encounter for pre-operative examination Hydrocele Hypertension Hypothyroidism Anxiety Medical History Prediabetes Per PCP records History of COVID-19 Around Jul 15, 2021, "[place] [address]", was asymptomatic > asked if pt was tested because he had been exposed to someone with covid, he said no. Schizophrenia CKD (chronic kidney disease), stage III Anemia Kidney tumor LEFT > approx 2 yrs ago (renal carcinoma per PCP records) BPH (benign prostatic hyperplasia) Bipolar disorder Depression Peripheral neuropathy Hyperlipidemia HX OF Chronic obstructive pulmonary disease controlled > no resc inh Surgical History History of esophagogastroduodenoscopy (EGD) History of repair of rotator cuff right History of left nephrectomy H/O prostate biopsy History of colonoscopy History of herniorrhaphy INGUINAL History of tooth extraction History of bronchoscopy Family History Other No significant family history Social History Smoking Status: Never smoker Second Hand Exposure: No; Do You Dip or Chew Tobacco: No; Hx Alcohol Use: No Hx Substance Use: No Preferred Language: Niuean Communication Ability: Effective Livestock Breeder Required: No Beliefs That Will Affect Care: None marital status: Single Current Living Situation: Family current occupational status: retired Feels Safe at Home: Yes Gender Identity: Male Assistive Devices: Denture - Upper, Denture - Lower and Glasses Allergies Allergies Allergy/AdvReac Type Severity Reaction Status Date / Time Penicillins Allergy Unknown UNKNOWN Verified 06/19/24 11:32 REACTION - HAPPENED A CHILD oxycodone [From OxyContin] AdvReac Intermediate Fainting Verified 06/19/24 11:32 Home Meds Home Medications Medication Instructions Recorded Confirmed clozapine 50 mg tablet 50 mg PO HS 12/17/18 09/06/24 diltiazem HCl 360 mg 360 mg PO HS 12/17/18 09/06/24 tablet,extended release 24 hr levothyroxine 75 mcg tablet 75 mcg PO QAM 12/17/18 09/06/24 multivitamin 1 tab PO QAM 12/17/18 09/06/24 polyethylene glycol 3350 17 17 g PO BID PRN Constipation 12/17/18 09/06/24 gram/dose oral powder (Miralax) vitamin B complex 1 tab PO QAM 12/17/18 09/06/24 escitalopram oxalate 20 mg tablet 20 mg PO HS 05/03/21 09/06/24 (Lexapro) lurasidone 120 mg tablet (Latuda) 80 mg PO QPM 02/25/22 09/06/24 cholecalciferol (vitamin D3) 25 500 unit PO DAILY 11/10/22 09/06/24 mcg (1,000 unit) capsule sacubitril 24 mg-valsartan 26 mg 1 tab PO BID 06/23/23 09/06/24 tablet (Entresto) finasteride 1 mg tablet 1 mg PO DAILY 09/06/24 09/06/24 furosemide 20 mg tablet 20 mg PO DAILY PRN Fluid Retention 09/06/24 09/06/24 gelatin 600 mg capsule 1,200 mg PO DAILY 09/06/24 09/06/24 lorazepam 0.5 mg tablet 0.5 mg PO BID PRN Anxiety 09/06/24 09/06/24 metoprolol succinate 25 mg 25 mg PO DAILY 09/06/24 09/06/24 tablet,extended release 24 hr tamsulosin 0.4 mg capsule 0.4 mg PO QAM 09/06/24 09/06/24 vibegron 75 mg tablet (Gemtesa) 75 mg PO DAILY 09/06/24 09/06/24 Previous Rx's Medication Instructions Recorded cefdinir 300 mg capsule 300 mg PO BID 10 days #20 caps 08/28/24 Results & Data (ED) Vital Signs Vital Signs - 24 hr 09/06/24 19:39 09/06/24 19:49 09/06/24 22:10 Temperature 36.6 C 37.1 C Temperature Source Temporal Artery Scan Oral Pulse Rate 93 H Pulse Rate [Finger] 67 Respiratory Rate 16 18 Respiratory Effort / Characteristics Non-Labored Respiratory Depth Normal Normal Blood Pressure 125/60 Blood Pressure [Right Arm] 165/90 H Blood Pressure Mean 81 Blood Pressure Mean [Right Arm] 115 Pulse Oximetry 94 97 Oxygen Delivery Method Room Air Room Air Room Air Sepsis Recent Fever Within 48 Hours No Sepsis New/Unexplained Change in Mental Status No Sepsis Action Taken by Nursing No Action Required Home Medications Current Medication List: was personally reviewed by me Laboratory Data Attestation: I reviewed the patient's lab results. 09/06/24 20:25 09/06/24 20:25 Lab Results 09/06/24 Range/Units 20:25 WBC 8.83 (4.8-10.8) K/ul RBC 3.84 L (4.70-6.10) M/uL Hgb 11.5 L (14.0-18.0) g/dl Hct 34.3 L (42.0-52.0) % MCV 89.3 (80.0-100.0) fL MCH 29.9 (25.0-34.0) pg MCHC 33.5 (32.0-36.0) g/dL RDW Std Deviation 41.1 (36.4-46.3) fL RDW Coeff of Marcial 12.6 (11.5-14.5) % Plt Count 264 (130-400) K/uL MPV 10.6 (9.4-12.4) fL Immature Gran % (Auto) 0.5 % Neut % (Auto) 70.6 % Lymph % (Auto) 17.1 % [place]shaw % (Auto) 10.3 % Eos % (Auto) 0.7 % Baso % (Auto) 0.8 % Neut # (Auto) 6.24 (1.40-6.50) K/uL Lymph # (Auto) 1.51 (1.20-3.40) K/uL Crenshaw # (Auto) 0.91 H (0.11-0.59) K/uL Eos # (Auto) 0.06 (0.00-0.50) K/uL Baso # (Auto) 0.07 (0.00-0.20) K/uL Immature Gran # (Auto) 0.04 (0.01-0.20) K/uL Sodium 141 (136-145) mmol/L Potassium 3.5 (3.5-5.1) mmol/L Chloride 108 H (98-107) mmol/L Carbon Dioxide 25 (21-32) mmol/L Anion Gap 8 (3-11) BUN 27 H (6-23) mg/dl Creatinine 1.41 H (0.6-1.4) mg/dl Est Cr Clr Drug Dosing 43.0 ml/min eGFR 52.29 BUN/Creatinine Ratio 19.1 (10-20) Glucose 71 (70-99(Fasting)) mg/dl Calcium 9.2 (8.6-10.3) mg/dl Total Bilirubin 0.5 (0.2-1.0) mg/dl AST 14 (13-39) U/L ALT 12 (7-52) U/L Alkaline Phosphatase 66 (34-104) U/L Total Protein 6.3 (6.0-8.3) gm/dl Albumin 4.0 (3.4-5.0) gm/dl Globulin 2.3 L (2.5-4.0) gm/dl Albumin/Globulin Ratio 1.7 (0.9-2) TSH 2.737 (0.300-4.500) uIu/ml Urine Color Yellow Urine Appearance Clear (Clear) Urine pH 6.5 (4.5-7.5) Ur Specific [place] 1.017 (1.000-1.030) Urine Protein Negative (Negative) Urine Glucose (UA) Negative (Negative) Urine Ketones Trace H (Negative) Urine Blood Negative (Negative) Urine Nitrite Negative (Negative) Urine Bilirubin Negative (Negative) Urine Urobilinogen Negative (Negative) Ur Leukocyte Esterase Negative (Negative) Salicylates < 3.0 L (3.0-30) mg/dl Urine Opiates Screen Neg (Neg) Ur Methadone, Qual Neg (Neg) Urine Fentanyl Screen Neg (Neg) Acetaminophen < 3 L (10-30) ug/ml Urine Barbiturates Neg (Neg) Ur Phencyclidine (PCP) Neg (Neg) U Amphetamin/Meth Scrn Neg (Neg) MDMA (Ecstasy) Screen Neg (Neg) U Benzodiazepines Scrn Neg (Neg) Ur Cocaine Metabolite Neg (Neg) U Marijuana (THC) Screen Neg (Neg) Ethyl Alcohol mg/dL < 10.0 (<10.0) mg/dl SARS-CoV-2, RNA, NAAT NEGATIVE (NEGATIVE) Administered Medications Discontinued Medications Lorazepam (Lorazepam 1 Mg Tab) 0.5 mg SL NOW STA Stop: 09/06/24 20:44 Last Admin: 09/06/24 21:16 Dose: 0.5 mg Documented By: MNS Discharge Plan Visit Data Chief Complaint: Anxiety Stated Complaint: PSYCHOSIS, ANXIETY ED Provider: Clarence Medina Discharge Problem: Anxiety, Hallucinations, Tremor, Acute dehydration Forms Stand Alone Forms: My [facility], Suicide Prevention Resources Prescriptions Prescriptions: No Action cholecalciferol (vitamin D3) 25 mcg (1,000 unit) capsule 500 unit PO DAILY Entresto 24-26 mg tablet 1 tab PO BID Latuda 120 mg tablet 80 mg PO QPM Rx Instructions: must administer with food (at least 350 calories) clozapine 50 mg tablet 50 mg PO HS multivitamin Tablet 1 tab PO QAM levothyroxine 75 mcg tablet 75 mcg PO QAM vitamin B complex Tablet 1 tab PO QAM polyethylene glycol 3350 [Miralax] 17 gram/dose powder 17 g PO BID PRN (Reason: Constipation ) diltiazem HCl 360 mg tablet extended release 24 hr 360 mg PO HS escitalopram oxalate [Lexapro] 20 mg tablet 20 mg PO HS cefdinir 300 mg capsule 300 mg PO BID 10 Days Qty: 20 0RF finasteride 1 mg tablet 1 mg PO DAILY Gemtesa 75 mg tablet 75 mg PO DAILY tamsulosin 0.4 mg capsule 0.4 mg PO QAM lorazepam 0.5 mg tablet 0.5 mg PO BID PRN (Reason: Anxiety ) furosemide 20 mg Tablet 20 mg PO DAILY PRN (Reason: Fluid Retention) metoprolol succinate 25 mg Tablet Extended Release 24 Hr 25 mg PO DAILY gelatin 600 mg Capsule 1,200 mg PO DAILY Referrals Referrals: Sung Gilbert MD [Primary Care Provider] -
[2024-09-06] MEDS: LORazepam 1 MG TAB SL STA (21:16)
[2024-09-06 21:19] LABS: Albumin Globulin Ratio 1.7 (0.9-2); BUN Creatinine Ratio 19.1 (10-20); Bilirubin,Total 0.5 mg/dl (0.2-1.0); Calcium 9.2 mg/dl (8.6-10.3); Globulin 2.3 gm/dl (2.5-4.0); Potassium 3.5 mmol/L (3.5-5.1); Total Protein 6.3 gm/dl (6.0-8.3)
[2024-09-06 21:24] LABS: Basophils # (auto) 0.07 K/uL (0.00-0.20); Basophils % (auto) 0.8 %; Eosinophils # (auto) 0.06 K/uL (0.00-0.50); Eosinophils % (auto) 0.7 %; Hematocrit (blood only) 34.3 % (42.0-52.0); Hemoglobin 11.5 g/dl (14.0-18.0); Immature Granulocytes # (auto) 0.04 K/uL (0.01-0.20); Immature Granulocytes % (auto) 0.5 %; Lymphocytes # (auto) 1.51 K/uL (1.20-3.40); Lymphocytes % (auto) 17.1 %; Mean Corpuscular Hemoglobin 29.9 pg (25.0-34.0); Mean Corpuscular Hgb Conc 33.5 g/dL (32.0-36.0); Mean Corpuscular Volume 89.3 fL (80.0-100.0); Mean Platelet Volume 10.6 fL (9.4-12.4); Monocytes # (auto) 0.91 K/uL (0.11-0.59); Monocytes % (auto) 10.3 %; Neutrophils # (auto) 6.24 K/uL (1.40-6.50); Neutrophils % (auto) 70.6 %; Platelet Count 264 K/uL (130-400); RDW Coefficient of Variation 12.6 % (11.5-14.5); RDW Standard Deviation 41.1 fL (36.4-46.3); Red Blood Count 3.84 M/uL (4.70-6.10); White Blood Count 8.83 K/ul (4.8-10.8)
[2024-09-06 21:34] LABS: Acetaminophen < 3 ug/ml (10-30); Salicylate < 3.0 mg/dl (3.0-30); Thyroid Stimulating Hormone 2.737 uIu/ml (0.300-4.500)
[2024-09-06 21:35] LABS: Amphetamines+Metham, Urine Neg (Neg); Barbiturates, Urine Neg (Neg); Benzodiazepine, Urine Neg (Neg); Cocaine, Urine Neg (Neg); Fentanyl, Urine Neg (Neg); MDMA (Ecstacy), Urine Neg (Neg); Marijuana, Urine Neg (Neg); Methadone, Urine Neg (Neg); Opiate, Urine Neg (Neg); Phencyclidine, Urine Neg (Neg)
--- NOTE | 2024-09-07 00:22 | Emergency Department Note ---
ED Visit Note Date and Time: 09/07/2024 0005 Interval History: Sign out received from Dr. Medina who reviewed details of the encounter. Patient was pending Evaluation by 3 S. Summary: There was concern that the patient had some cognitive decline and increasing tremors along with a prolonged QT C on EKG. The case was discussed with the case management manager and [facility], neurology consult and psychiatric consult during inpatient medical stay. .
--- NOTE | 2024-09-07 00:46 | CT Scan Report ---
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 TECHNIQUE: Axial computed tomography images of the head/brain without intravenous contrast. CTDI is 64.94 mGy and DLP is 1098.96 mGy-cm. Automated exposure control was utilized for the study. A dose lowering technique was utilized adhering to the principles of ALARA. COMPARISON: Prior head CT from September 01, 2022. FINDINGS: Brain: Unremarkable. No hemorrhage. Mild nonspecific white matter changes.. No edema. Ventricles: Moderate ventriculomegaly. Bones/joints: Unremarkable. No acute fracture. Soft tissues: Unremarkable. Sinuses: Unremarkable as visualized. No acute sinusitis. Mastoid air cells: Unremarkable as visualized. No mastoid effusion. IMPRESSION: No evidence of acute intracranial pathology. Electronically signed by: Carmen Huff MD 09/07/24 00:45 AM
--- NOTE | 2024-09-07 00:48 | XRay Report ---
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 TECHNIQUE: Frontal view of the chest. COMPARISON: Prior chest x-ray from May 08, 2024. FINDINGS: Lungs: Unremarkable. No consolidation. Pleural space: Unremarkable. No pneumothorax. Heart: Unremarkable. No cardiomegaly. Mediastinum: Unremarkable. Normal mediastinal contour. Bones/joints: Bilateral rotator cuff tears with high riding humeral heads. No acute fracture. IMPRESSION: No evidence of acute cardiopulmonary process. Electronically signed by: Carmen Huff MD 09/07/24 00:47 AM
--- NOTE | 2024-09-07 02:53 | History & Physical Report ---
Date of Service September 07, 2024 Assessment & Plan (1) Anxiety: (2) Hallucinations: (3) Suicidal ideation: (4) Chronic pain: (5) Renal insufficiency: Plan Patient is a 74-year-old male with past medical history of bipolar disorder, schizoaffective disorder, anxiety, BPH, hypertension, hypothyroidism, clear-cell carcinoma of left kidney, stage III CKD. He presented to the ED due to worsening hallucinations, tremors, and cognitive decline. Patient is being admitted for pain control, anxiety control, and to have neuro and psych evaluation. #Anxiety/hallucinations/SI - patient reports worsening delusions, hallucinations, anxiety, panic attacks, and suicidal ideation for several days. 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 - Head CT and CXR negative for acute changes - TSH WNL, electrolytes stable - UDS negative, salicylates WNL, acetaminophen level WNL, EtOH WNL - QTC 666 on EKG in ED, however much artifact noted; repeat EKG in a.m. - consult psych and neurology; may need medication adjustments given stable on current regimen for several years - given Ativan 0.5 Mg sublingual in ED, currently stable at time of admission; would avoid antipsychotics given prolonged QTc - continue clozapine, Lexapro, Latuda, Ativan 0.5 Mg p.o. twice daily as needed - anticipate placement to Geriatric psych facility given suicidal ideation #Chronic pain - history of osteoarthritis. patient reports pain in shoulder, knees, back. Patient stated was titrated off pain medication. - Tylenol prn #Renal insufficiency on CKD - hx of clear-cell renal carcinoma, s/p left kidney nephrectomy 2 to 3 years ago - Does not meet criteria for WADE, Cr increased from 1.09 to 1.41 - Promote oral hydration - hold lasix prn - trend BMP #UTI - Undergoing treatment for UTI with cefdinir started 08/28 x 10 days from the ED; to be completed 09/07 - UC grew within 3 organisms all moderate counts of mixed probable skin krista, no sensitivities or identification - UA shows trace ketones 09/06, no WBC, leukocyte esterase, nitrates, or bacteria present #HTN - Stable, continue home regimen of diltiazem, metoprolol, Entresto #BPH - stable, not currently in retention, continue finasteride, gemtesa, and tamsulosin #hypothyroidism - continue levothyroxine, TSH WNL VTE ppx: SCDs, low risk Dispo: med surg Admission and Anticipated Discharge Date Admission Date: 09/07/24 History of Present Illness Chief Complaint: Anxiety Primary Care Provider: Sung Gilbert MD Patient is a 74-year-old male with past medical history of bipolar disorder, schizoaffective disorder, anxiety, BPH, hypertension, hypothyroidism, clear-cell carcinoma of left kidney, stage III CKD. He presented to the ED due to worsening hallucinations, tremors, and cognitive decline. Patient is being admitted for pain control, anxiety control, and to have neuro and psych eval's. Patient was pleasant and seen at bedside. He stated that for the past few days he has had worsening delusions, anxiety, panic attacks, and hallucinations. He does endorse suicidal ideation and thoughts of self-harm. He stated he has been stable on his current medication regimen for several years. He does have tremors at bedside however he stated this has been chronic for several years and is unchanged. Patient also stated he has chronic pain and history of osteoarthritis, he has pain in his shoulders, knees, and along the L5 pathway. He was previously on pain medication however was titrated off of this with his PCP. He states his pain is currently a 6/10, Tylenol ordered. Patient does state that he has a history of left kidney nephrectomy due to clear-cell carcinoma, discussed worsening creatinine, will promote oral hydration and patient drinking water without difficulty at bedside. Patient denies current dizziness/lightheadedness, shortness of breath, chest pain, nausea, vomiting, diarrhea, dysuria. Patient is currently undergoing treatment for UTI with cefd inir from 08/28 and has approximately 2 pills left. He missed his evening medications last night however will defer ordering at this time given patient will have a.m. medications soon. He denies nicotine and alcohol use. Did not discuss CODE STATUS given suicidal ideation. Patient is agreeable to psych and neuro evals for possible medication adjustments and ultimate goal is to go to psychiatric facility given suicidal ideation and eventually to return home. Allergies Allergy/AdvReac Type Severity Reaction Status Date / Time Penicillins Allergy Unknown UNKNOWN Verified 06/19/24 11:32 REACTION - HAPPENED A CHILD oxycodone [From OxyContin] AdvReac Intermediate Fainting Verified 06/19/24 11:32 Home Medications Medication Instructions Recorded Confirmed Type clozapine 50 mg tablet 50 mg PO HS 12/17/18 09/06/24 History diltiazem HCl 360 mg 360 mg PO HS 12/17/18 09/06/24 History tablet,extended release 24 hr levothyroxine 75 mcg tablet 75 mcg PO QAM 12/17/18 09/06/24 History multivitamin 1 tab PO QAM 12/17/18 09/06/24 History polyethylene glycol 3350 17 17 g PO BID PRN Constipation 12/17/18 09/06/24 History gram/dose oral powder (Miralax) vitamin B complex 1 tab PO QAM 12/17/18 09/06/24 History escitalopram oxalate 20 mg tablet 20 mg PO HS 05/03/21 09/06/24 History (Lexapro) lurasidone 120 mg tablet (Latuda) 80 mg PO QPM 02/25/22 09/06/24 History cholecalciferol (vitamin D3) 25 500 unit PO DAILY 11/10/22 09/06/24 History mcg (1,000 unit) capsule sacubitril 24 mg-valsartan 26 mg 1 tab PO BID 06/23/23 09/06/24 History tablet (Entresto) cefdinir 300 mg capsule 300 mg PO BID 10 days #20 caps 08/28/24 09/06/24 Rx finasteride 1 mg tablet 1 mg PO DAILY 09/06/24 09/06/24 History furosemide 20 mg tablet 20 mg PO DAILY PRN Fluid Retention 09/06/24 09/06/24 History gelatin 600 mg capsule 1,200 mg PO DAILY 09/06/24 09/06/24 History lorazepam 0.5 mg tablet 0.5 mg PO BID PRN Anxiety 09/06/24 09/06/24 History metoprolol succinate 25 mg 25 mg PO DAILY 09/06/24 09/06/24 History tablet,extended release 24 hr tamsulosin 0.4 mg capsule 0.4 mg PO QAM 09/06/24 09/06/24 History vibegron 75 mg tablet (Gemtesa) 75 mg PO DAILY 09/06/24 09/06/24 History Past Med/Surg History Problem List Renal insufficiency Chronic pain Suicidal ideation Acute dehydration (Acute) Tremor (Acute) Anxiety (Acute) Acute UTI (Acute) Hallucinations (Acute) Urge incontinence Anemia Contusion of left knee Dehydration Foot pain Hypokalemia Popliteal cyst Vomiting and diarrhea Vomiting and diarrhea Weakness Encounter for pre-operative examination Renal mass Chest pain Clear cell carcinoma of left kidney Spermatocele (Acute) Schizophrenia (Acute) History of elevated prostate specific antigen (PSA) (Acute) Benign prostatic hyperplasia with urinary obstruction and other lower urinary tract symptoms (Acute) Pneumonia (Acute) Anemia (Acute) Acute hypotension (Acute) Chest wall contusion (Acute) Fall (Acute) Diarrhea Rib fracture CKD (chronic kidney disease), stage III Pericardial effusion Encounter for pre-operative examination Hydrocele Hypertension Hypothyroidism Anxiety Medical History Prediabetes Per PCP records History of COVID-19 Around Jul 15, 2021, "[place] [address]", was asymptomatic > asked if pt was tested because he had been exposed to someone with covid, he said no. Schizophrenia CKD (chronic kidney disease), stage III Anemia Kidney tumor LEFT > approx 2 yrs ago (renal carcinoma per PCP records) BPH (benign prostatic hyperplasia) Bipolar disorder Depression Peripheral neuropathy Hyperlipidemia HX OF Chronic obstructive pulmonary disease controlled > no resc inh Surgical History History of esophagogastroduodenoscopy (EGD) History of repair of rotator cuff right History of left nephrectomy H/O prostate biopsy History of colonoscopy History of herniorrhaphy INGUINAL History of tooth extraction History of bronchoscopy Family History Other No significant family history Social History Smoking Status: Never smoker Second Hand Exposure: No; Do You Dip or Chew Tobacco: No; Hx Alcohol Use: No Hx Substance Use: No Preferred Language: Ukrainian Communication Ability: Effective V Belt Finisher Required: No Beliefs That Will Affect Care: None marital status: Single Current Living Situation: Family current occupational status: retired Feels Safe at Home: Yes Gender Identity: Male Assistive Devices: Denture - Upper, Denture - Lower and Glasses Review of Systems Review of Systems: see HPI Physical Exam Physical Exam: The patient is awake, alert and oriented 3, well developed and well nourished, normocephalic and atraumatic, in no acute distress. Non-toxic appearing. HEENT- EOMI, mucous membranes dry. Hearing grossly intact. Heart-normal S1 and S2. No murmurs, rubs or gallops. Lungs-clear bilaterally, no respiratory distress, no accessory muscle use. Abdomen-normal bowel sounds and soft. No ascites noted. Non-tender. Extremities- no clubbing, cyanosis, or edema. Rheumatologic-normal range of motion. Psychiatric-normal affect. Results & Data Results & Data Vital Signs (Past 12 Hours) Vital Signs Temp Pulse Pulse Resp BP BP Pulse Ox 09/07/24 01:51 78 14 150/79 H 98 09/06/24 23:39 72 19 159/85 H 98 09/06/24 22:10 37.1 C 67 18 165/90 H 97 09/06/24 19:49 36.6 C 93 H 16 125/60 94 09/06/24 19:39 O2 Del Method 09/07/24 01:51 Room Air 09/06/24 23:39 Room Air 09/06/24 22:10 Room Air 09/06/24 19:49 Room Air 09/06/24 19:39 Room Air Laboratory Results Reviewed CBC and CMP Diagnostic Findings reviewed CXR and head CT Medications Administered EDAtivan 0.5 Mg sublingual Admissioncefdinir 300 Mg p.o., Tylenol 650 Mg p.o. ECG Additional Comments: right bundle branch block Wide QRS, QTc 666 Rate 66 However much artifact noted Code Status & VTE Plan Code Status Will make full code, did not discuss CODE STATUS given suicidal ideation VTE Prophylaxis Plan VTE Prophylaxis will be ordered: Yes Supervising Physician Co-Signing Physician Notes Patient seen and examined, chart reviewed, case discussed with AYO Veliz and I agree with the assessment and plan as above. In brief, patient is a 74yo male with Schizophrenia, Bipolar/Depression presenting wtih worsening delusions, hallucinations and cognitive decline. He has been stable on his medications for many years, reports adherence to his medication regimen Chronic pain in shoulder, knee and back - recently weaned off pain medication On exam he is sleeping in bed - room A6, easily arousable Answers questions appropriately +S1/S2, regular, no m/r/g Lungs CTA Abd soft, NT/ND Ext - warm, well perfused Neuro - no focal deficits, some repetitive motion noted of lips and tongue Labs and images reviewed Suggestive of dehydration CT Head WNL CXR with no acute findings EKG with prolonged [id number] Assessment/Plan 74yo male with history of Schizophrenia, Bipolar, Depression presenting with worsening psychiatric symptoms -Psychiatric consultation appreciated -Neuro consultation appreciated -Tylenol and Voltaren PRN pain -Remainder as above PG Care Time/CCT Total # of Minutes Spent Total Time Spent with Patient: Total time spent is greater than 50% in coordination of care (as documented) at patient's floor/unit and/or counseling patient: Coding Level of Care Code 30426 INT INP/OBS CARE 3/75MIN Diagnoses Anxiety F41.9 Hallucinations R44.3 Suicidal ideation R45.851 Chronic pain G89.29 Renal insufficiency N28.9
[2024-09-07] MEDS: ACETAMINOPHEN 325 MG TAB PO STA (03:40)
[2024-09-07] MEDS: CEFDINIR 300 MG CAP PO STA (03:40)
[2024-09-07 09:34] LABS: Magnesium 1.9 mg/dl (1.7-2.4)
[2024-09-07] MEDS: LEVOTHYROXINE SODIUM 75 MCG TABLET PO SCH (09:46)
[2024-09-07] MEDS: TAMSULOSIN HCL 0.4 MG CAP PO SCH (09:46)
[2024-09-07] MEDS: METOPROLOL SUCC 25MG EXT REL TAB PO SCH (09:46)
[2024-09-07] MEDS: VALSARTAN/SACUBITRIL 26/24MG TAB PO SCH (09:46)
[2024-09-07] MEDS: VIBEGRON 75 MG TAB PO SCH (10:32)
[2024-09-07] MEDS: PSYLLIUM or GUAR GUM FIBER 4GM PACKET PO SCH (10:32)
--- NOTE | 2024-09-07 11:28 | Hospitalist Progress Note ---
Date of Service September 07, 2024 Assessment & Plan (1) Anxiety: (2) Hallucinations: (3) Suicidal ideation: (4) Chronic pain: (5) Renal insufficiency: Plan 74-year-old male with past medical history of bipolar disorder, schizoaffective disorder, anxiety, BPH, hypertension, hypothyroidism, clear-cell carcinoma of left kidney, stage III CKD. He presented to the ED due to worsening hallucinations, tremors, and cognitive decline. He was admitted for psych evaluation and medication adjustments. 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 Reports medication compliance. Head CT and CXR negative for acute changes. TSH WNL, electrolytes stable. UDS negative, salicylates WNL, acetaminophen level WNL, EtOH WNL Psych consulted - recommends cross-taper from escitalopram to sertraline. Reduce escitalopram to 10 mg daily and start sertraline 50 mg daily. Use lorazepam 0.5 mg q8h PRN anxiety and should also reduce psychosis. If lorazepam worsens patient's cognition, consider hydroxyzine 12.5-25 mg q8h PRN anxiety Continue Clozaril 50 mg HS, lurasidone 80 mg HS Repeat EKG with QTc of 443 and RBBB. EKG on admission showed QTc of 666 but had significant artifact Recommend psych follow-up outpatient for long history of tardive dyskinesia Anticipate placement at inpatient geriatric psych facility for psychiatric history and medical comorbidities, ambulation and ADL assistance, medication management needs and age #Chronic pain - history of osteoarthritis. Patient reports pain in shoulder, knees, back. Patient stated he was titrated off pain medication Continue Tylenol PRN and Voltaren gel PRN #Renal insufficiency on CKD - hx of clear-cell renal carcinoma, s/p left kidney nephrectomy 2 to 3 years ago Baseline Cr ~1.0, Cr on admission 1.41 Hold PRN Lasix Encourage oral hydration and trend BMP #UTI - Undergoing treatment for UTI with cefdinir 300 mg BID that started 08/28 x 10 days from the ED; to be completed 09/07 UA on admission showed trace ketones - no WBC, leukocyte esterase, nitrates, or bacteria present #HTN - Stable, continue home regimen of diltiazem, metoprolol, Entresto #BPH - Stable, not currently in retention, continue finasteride, gemtesa, and tamsulosin #Hypothyroidism - continue levothyroxine, TSH WNL VTE ppx: SCDs, low risk Dispo: anticipate placement at inpatient geriatric psych facility Ordered PT/OT Ordered Voltaren gel, decreased escitalopram, started sertraline, adjusted Ativan Changed 1:1 sitter to PRN Discussed case with psychiatry Admission and Anticipated Discharge Date Admission Date: September 07, 2024 Subjective Patient seen and evaluated at bedside with 1:1 sitter present. He reports ongoing visual and auditory hallucinations. He also reports SI and states he did attempt suicide approximately 20 years ago with jumping out of a third story window. He does not want to harm himself which is why he came to the hospital for an inpatient psych stay. He reports poor sleep, noting that he only slept for about 3 hours broken up overnight. He reports he has been compliant with his medications and has been stable on his current regimen for the past 15-20 years. He has not been seen by the behavioral health team yet. He denies chest pain, SOB, headache, abdominal pain, N/V/D, or urinary symptoms. We discussed his UA on admission and the plan to complete his outpatient antibiotic course today. He denies any additional complaints or concerns aside from his psych needs. Review of Systems Review of Systems: All systems reviewed & are unremarkable except as noted in HPI & below Psychiatric: + abnormal sleep pattern, + change in ap petite, + suicidal ideation, + anxiety, + panic attacks, + hallucinations, + auditory hallucinations and + visual hallucinations Physical Exam Physical Exam: General: No acute distress, nondiaphoretic, well-developed, well-nourished. Cardiac: Regular rate and rhythm without murmurs gallops or rubs. Pulm: Clear to auscultation bilaterally without wheezes, rales or rhonchi. Normal respiratory effort. 99% on room air. Abdominal: Soft, nontender, nondistended. Bowel sounds present. Neuro: A&O x3. No focal neurological deficits. Psych: Normal affect. Pleasant and cooperative. Good hygiene. Results & Data Results & Data Vital Signs (Past 12 Hours) Vital Signs Temp Pulse Resp BP Pulse Ox O2 Del Method 09/07/24 08:25 97.5 F L 72 18 156/88 H 99 Room Air 09/07/24 07:46 Room Air 09/07/24 07:20 76 18 141/85 H 98 Room Air 09/07/24 05:50 72 18 132/69 96 Room Air 09/07/24 03:51 76 18 161/96 H 97 09/07/24 01:51 78 14 150/79 H 98 Room Air 09/06/24 23:39 72 19 159/85 H 98 Room Air Laboratory Results Reviewed CBC with differential Reviewed CMP, chemistries Reviewed UA Reviewed tox screen Diagnostic Findings Reviewed head CT Reviewed CXR PG Care Time/CCT Total # of Minutes Spent Total Time Spent with Patient: Total time spent is greater than 50% in coordination of care (as documented) at patient's floor/unit and/or counseling patient: Coding Level of Care Code 70002 SUB INP/OBS CARE 3/50MIN Diagnoses Anxiety F41.9 Hallucinations R44.3 Suicidal ideation R45.851 Chronic pain G89.29 Renal insufficiency N28.9
[2024-09-07] MEDS: CEFDINIR 300 MG CAP PO SCH (11:31)
[2024-09-07] MEDS: LORazepam 0.5 MG TAB PO PRN (13:28)
[2024-09-07] MEDS: DICLOFENAC SOD 1% GEL 100 GM TUBE EXT PRN (13:58)
--- NOTE | 2024-09-07 14:22 | Psychiatric Consultation ---
Date of Consultation September 07, 2024 Impression / Recommendations Impression Patient is a 74-year-old male with past medical history of bipolar disorder, schizoaffective disorder, anxiety, BPH, hypertension, hypothyroidism, clear-cell carcinoma of left kidney, stage III CKD. He presented to the ED due to worsening hallucinations, tremors, and cognitive decline. Psychiatry consulted for evaluation and recommendations. Concern for pseudohallucinations and paranoia from a high anxiety state. He presents a normal thought process and his endorsement of auditory hallucinations doesn't reflect what typically occurs in a primary psychotic disorder like schizophrenia. Appears his uncontrolled pain is precipitating his anxiety. In addition there is concern for nightly delirium and he presents associated delusional experiences. He reports having elevated LFTs in the past, unclear etiology and may be due to an adverse effect rather than cumulative damage. Labs reviewed: mild anemia, elevated Cr; TSH, UA, UDS, transaminases unremarkable; updated EKG 64bpm NSR with QTc 443ms and within expected limits. He has been on the same psychiatric regimen for years and there is concern for autometabolism causing treatment inefficacy. Would recommend cross taper from Escitalopram to Sertraline. Can utilize Lorazepam 0.5mg Q8hr PRN for anxiety and should also reduce psychosis. If the benzodiazepine makes him too confused, can utilize Hydroxyzine 12.5mg to 25mg instead. Presents long history of tardive dyskinesia and advised to seek treatment for this on an outpatient basis. Does not appear to be a safety risk so may only need sitter at night in case he becomes confused. At this time he is able to contract for safety. Would recommend bed search for inpatient geriatric psychiatry given medical comorbidities, ambulation and ADL assistance, medication management needs, and age. Overall, I spent a total of 80 minutes with this case including review of chart records, nursing report, review of lab work, direct evaluation of the patient at bedside, counseling the patient, discussion of the patient with the hospitalist provider, discussion with the psychiatric liaison during clinical rounds, and documentation in the electronic health record. (1) Pseudohallucination: (2) Passive suicidal ideations: (3) Generalized anxiety disorder: (4) Cluster B personality disorder: (5) Depression: (6) Sundowning: (7) Tremor: (8) Acute dehydration: (9) Chronic pain: (10) Renal insufficiency: (11) History of liver injury: (12) Tardive dyskinesia: Plan Reduce Escitalopram to 10mg daily Start Sertraline 50mg daily Continue home Clozaril 50mg HS Continue Lurasidone 80mg Consider Lorazepam 0.5mg PO Q8hr PRN for anxiety If it worsens patient's cognition, consider Hydroxyzine 12.5 to 25mg PO Q8hr PRN for anxiety PT/OT Once medically cleared, inpatient geriatric psychiatry admission Psych History Identifying Data Patient is a 74-year-old male with past medical history of bipolar disorder, schizoaffective disorder, anxiety, BPH, hypertension, hypothyroidism, clear-cell carcinoma of left kidney, stage III CKD. He presented to the ED due to wors ening hallucinations, tremors, and cognitive decline. Psychiatry consulted for evaluation and recommendations. Chief Complaint "worsening psychosis" History of Present Illness The patient complains of worsening psychosis. Reports having high anxiety recently and voices have gotten worse over the past 5 to 6 days. Said they have gradually worsened over the past few months but were more notable recently. Complains of intense physical pain in his joints and back. Reports that anxiety gets worse with pain. Told the psychiatrist about a symptoms and recommended hospitalization. Says he is very upset he was admitted to the psychiatry chacko here. When asked about past liver problems he reports his liver enzymes shot up and they decided to remove all his pain medications. Warts history of renal carcinoma and currently has 1 kidney. When asked about voices he reports that sounds like loud songs and background chatter mostly male voices. They occur both inside and outside his head however not during sleep. Reports an instance where he saw a woman smoking a cigarette and then looked away and then look back and then she vanished. Reports the voices are worse with pain and anxiety. Currently lives at home with his ex- who is his partner and reports she is a good support. She helps with his ADLs such as ambulating into the shower. Has PT 1-2 times a week to assist with strength training. says he has had a low mood recently and having nightmares 2-3 times a week. Says that he is able to maintain sleep when he is not stressed. Complains of catastrophic thinking and anxious paranoia. Reports chronic passive SI however no current active thoughts or plans. Says at night he sometimes gets confused and presented a bizarre memory that he had felt real to him. When asked about medications he reports no Major medication changes to his psychotropics in the last few years. Was taken off lorazepam and pain medications due to liver concerns. Reports being on escitalopram and lurasidone for many years. Past Psychiatric History Current Psychiatric Diagnosis: BOAZ, Schizophrenia, Bipolar? Allergies Allergy/AdvReac Type Severity Reaction Status Date / Time Penicillins Allergy Unknown UNKNOWN Verified 06/19/24 11:32 REACTION - HAPPENED A CHILD oxycodone [From OxyContin] AdvReac Intermediate Fainting Verified 06/19/24 11:32 Home Medications Medication Instructions Recorded Confirmed Type clozapine 50 mg tablet 50 mg PO HS 12/17/18 09/06/24 History diltiazem HCl 360 mg 360 mg PO HS 12/17/18 09/06/24 History tablet,extended release 24 hr levothyroxine 75 mcg tablet 75 mcg PO QAM 12/17/18 09/06/24 History multivitamin 1 tab PO QAM 12/17/18 09/06/24 History polyethylene glycol 3350 17 17 g PO BID PRN Constipation 12/17/18 09/06/24 History gram/dose oral powder (Miralax) vitamin B complex 1 tab PO QAM 12/17/18 09/06/24 History escitalopram oxalate 20 mg tablet 20 mg PO HS 05/03/21 09/06/24 History (Lexapro) lurasidone 120 mg tablet (Latuda) 80 mg PO QPM 02/25/22 09/06/24 History cholecalciferol (vitamin D3) 25 500 unit PO DAILY 11/10/22 09/06/24 History mcg (1,000 unit) capsule sacubitril 24 mg-valsartan 26 mg 1 tab PO BID 06/23/23 09/06/24 History tablet (Entresto) cefdinir 300 mg capsule 300 mg PO BID 10 days #20 caps 08/28/24 09/06/24 Rx finasteride 1 mg tablet 1 mg PO DAILY 09/06/24 09/06/24 History furosemide 20 mg tablet 20 mg PO DAILY PRN Fluid Retention 09/06/24 09/06/24 History gelatin 600 mg capsule 1,200 mg PO DAILY 09/06/24 09/06/24 History lorazepam 0.5 mg tablet 0.5 mg PO BID PRN Anxiety 09/06/24 09/06/24 History metoprolol succinate 25 mg 25 mg PO DAILY 09/06/24 09/06/24 History tablet,extended release 24 hr tamsulosin 0.4 mg capsule 0.4 mg PO QAM 09/06/24 09/06/24 History vibegron 75 mg tablet (Gemtesa) 75 mg PO DAILY 09/06/24 09/06/24 History Patient History Medical History Prediabetes Per PCP records History of COVID-19 Around Jul 15, 2021, "[place] [address]", was asymptomatic > asked if pt was tested because he had been exposed to someone with covid, he said no. Schizophrenia CKD (chronic kidney disease), stage III Anemia Kidney tumor LEFT > approx 2 yrs ago (renal carcinoma per PCP records) BPH (benign prostatic hyperplasia) Bipolar disorder Depression Peripheral neuropathy Hyperlipidemia HX OF Chronic obstructive pulmonary disease controlled > no resc inh Surgical History History of esophagogastroduodenoscopy (EGD) History of repair of rotator cuff right History of left nephrectomy H/O prostate biopsy History of colonoscopy History of herniorrhaphy INGUINAL History of tooth extraction History of bronchoscopy Family History Other No significant family history Social History Smoking Status: Former smoker Second Hand Exposure: No; Do You Dip or Chew Tobacco: No; Hx Alcohol Use: Yes Alcohol type: wine Hx Substance Use: No Preferred Language: Citizen Of [place] Communication Ability: Effective Fence Builder Required: No Beliefs That Will Affect Care: None marital status: Single Current Living Situation: Significant Other current occupational status: retired Feels Safe at Home: Yes and No Is there a partner from a previous relationship who is making you feel unsafe now?: No Gender Identity: Male Assistive Devices: Cane, Denture - Upper and Glasses Physical Exam Mental Examination: Appearance: Well Groomed Eye Contact: Maintains Eye Contact Motor Behavior: Unremarkable Speech: Normal Mood: Calm, Anxious and Happy Affect: Appropriate and Congruent Thought Process: Intact and Linear Thought Content: Racing Hallucinations: Auditory and Visual Insight: Fair (to limited) Judgement: Fair (to limited) Vital Signs (Past 24 Hours): Last Vital Signs Temp 36.4 C L 09/07/24 08:25 Pulse 72 09/07/24 08:25 Resp 18 09/07/24 08:25 BP 156/88 H 09/07/24 08:25 Pulse Ox 99 09/07/24 08:25 O2 Del Method Room Air 09/07/24 08:25 Results & Data (PSY) Medications Administered Cefdinir (Cefdinir 300 Mg Cap) 300 mg PO BID [facility]; Protocol Stop: 09/07/24 21:01 Last Admin: 09/07/24 11:31 Dose: 300 mg Documented By: SHARIF Diclofenac Sodium (Diclofenac Sod 1% Gel 100 Gm Tube) 2 gm EXT QID PRN; Protocol PRN Reason: pain Stop: 10/07/24 07:54 Last Admin: 09/07/24 13:58 Dose: 2 gm Documented By: SHARIF Levothyroxine Sodium (Levothyroxine Sodium 75 Mcg Tablet) 75 mcg PO DAILYBB [facility] Stop: 10/07/24 08:59 Last Admin: 09/07/24 09:46 Dose: 75 mcg Documented By: MEAGAN Lorazepam (Lorazepam 0.5 Mg Tab) 0.5 mg PO BID PRN PRN Reason: Anxiety Stop: 10/07/24 07:54 Last Admin: 09/07/24 13:28 Dose: 0.5 mg Documented By: SHARIF Metoprolol Succinate (Metoprolol Succ 25mg Ext Rel Tab) 25 mg PO DAILY [facility] Stop: 10/07/24 08:59 Last Admin: 09/07/24 09:46 Dose: 25 mg Documented By: MEAGAN Psyllium Hydrophilic Mucilloid (Psyllium Or Guar Gum Fiber 4gm Packet) 4 gm PO QAM [facility] Stop: 10/07/24 09:59 Last Admin: 09/07/24 10:32 Dose: 4 gm Documented By: SHARIF Sacubitril/Valsartan (Valsartan/Sacubitril 26/24mg Tab) 1 tab PO BID [facility] Stop: 10/07/24 08:59 Last Admin: 09/07/24 09:46 Dose: 1 tab Documented By: MEAGAN Tamsulosin HCl (Tamsulosin Hcl 0.4 Mg Cap) 0.4 mg PO QAM [facility] Stop: 10/07/24 08:59 Last Admin: 09/07/24 09:46 Dose: 0.4 mg Documented By: MEAGAN Vibegron (Vibegron 75 Mg Tab) 75 mg PO DAILY [facility] Stop: 10/07/24 08:59 Last Admin: 09/07/24 10:32 Dose: 75 mg Documented By: NMS [place] [address] IN/OBS CONSULT LVL 5,80M Patient Type New History Detailed Exam Detailed Diagnoses Pseudohallucination R44.3 Passive suicidal ideations R45.851 Generalized anxiety disorder F41.1 Cluster B personality disorder F60.89 Depression F32.9 Sundowning F05 Tremor R25.1 Acute dehydration E86.0 Chronic pain G89.29 Renal insufficiency N28.9 History of liver injury Z87.828 Tardive dyskinesia G24.01
[2024-09-07] MEDS: ESCITALOPRAM OXALATE 10 MG TAB PO SCH (20:30)
[2024-09-07] MEDS: ACETAMINOPHEN 325 MG TAB PO PRN (20:30)
[2024-09-07] MEDS: cloZAPine 25 MG TAB PO SCH (20:30)
[2024-09-07] MEDS: LURASIDONE HCL 20 MG TAB PO SCH (20:31)
[2024-09-07] MEDS: dilTIAZem HCL 180 MG CAPCR PO SCH (20:32)
[2024-09-07] MEDS ORDERED: ESCITALOPRAM OXALATE 20 MG TAB PO SCH (21:00)
[2024-09-07] MEDS ORDERED: CEFDINIR 300 MG CAP PO SCH (21:00)
--- NOTE | 2024-09-07 21:33 | Electrocardiogram Report ---
Test Reason : Blood Pressure : */* mmHG Vent. Rate : 66 BPM Atrial Rate : * BPM P-R Int : * ms QRS Dur : 146 ms QT Int : 636 ms P-R-T Axes : * -24 -11 degrees QTcB Int : 666 ms Poor data quality, interpretation may be adversely affected Probable Sinus rhythm Right bundle branch block Minimal voltage criteria for LVH, may be normal variant ( R in aVL ) Abnormal ECG When compared with ECG of 03-Mar-2024 13:27, Artifact is now present Confirmed by Amor Santo ([id number]) on 09/07/2024 9:33:22 PM Referred By: ORLY GERARD Confirmed By: Amor Santo
--- NOTE | 2024-09-07 21:34 | Electrocardiogram Report ---
Test Reason : Blood Pressure : */* mmHG Vent. Rate : 64 BPM Atrial Rate : 64 BPM P-R Int : 156 ms QRS Dur : 142 ms QT Int : 430 ms P-R-T Axes : 57 -22 -4 degrees QTcB Int : 443 ms Poor data quality, interpretation may be adversely affected Normal sinus rhythm Possible Left atrial enlargement Right bundle branch block Abnormal ECG When compared with ECG of 06-Sep-2024 22:13, Less artifact is now present Confirmed by Amor Santo ([id number]) on 09/07/2024 9:33:48 PM Referred By: ORLY GERARD Confirmed By: Amor Santo
[2024-09-08 07:49] LABS: BUN Creatinine Ratio 21.4 (10-20); Calcium 9.2 mg/dl (8.6-10.3); Creatinine Clr Calc Pharmacy 51.8 ml/min; Potassium 3.8 mmol/L (3.5-5.1)
[2024-09-08] MEDS: SERTRALINE HCL 50 MG TABLET PO SCH (08:46)
--- NOTE | 2024-09-08 16:47 | Hospitalist Progress Note ---
Date of Service September 08, 2024 Assessment & Plan (1) Anxiety: (2) Hallucinations: (3) Suicidal ideation: (4) Chronic pain: (5) Renal insufficiency: Plan 74-year-old male with past medical history of bipolar disorder, schizoaffective disorder, anxiety, BPH, hypertension, hypothyroidism, clear-cell carcinoma of left kidney, stage III CKD. He presented to the ED due to worsening hallucinations, tremors, and cognitive decline. He was admitted for psych evaluation and medication adjustments. 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 Reports medication compliance. Head CT and CXR negative for acute changes. TSH WNL, electrolytes stable. UDS negative, salicylates WNL, acetaminophen level WNL, EtOH WNL Psych consulted - recommends cross-taper from escitalopram to sertraline. Reduced escitalopram to 10 mg daily and started sertraline 50 mg daily. Use lorazepam 0.5 mg q8h PRN anxiety and should also reduce psychosis. If lorazepam worsens patient's cognition, consider hydroxyzine 12.5-25 mg q8h PRN anxiety Continue Clozaril 50 mg HS, lurasidone 80 mg HS Repeat EKG with QTc of 443 and RBBB. EKG on admission showed QTc of 666 but had significant artifact Recommend psych follow-up outpatient for long history of tardive dyskinesia Per psych, anticipate placement at inpatient geriatric psych facility for psychiatric history and medical comorbidities, ambulation and ADL assistance, medication management needs and age #Chronic pain - history of osteoarthritis. Patient reports pain in shoulder, knees, back. Patient stated he was titrated off pain medication Continue Tylenol PRN and Voltaren gel PRN #Renal insufficiency on CKD - hx of clear-cell renal carcinoma, s/p left kidney nephrectomy 2 to 3 years ago Baseline Cr ~1.0, Cr on admission 1.41 - now back to baseline renal function Hold PRN Lasix Encourage oral hydration #UTI - Undergoing treatment for UTI with cefdinir 300 mg BID that started 08/28 x 10 days from the ED; to be completed 09/07 UA on admission showed trace ketones - no WBC, leukocyte esterase, nitrates, or bacteria present #HTN - Stable, continue home regimen of diltiazem, metoprolol, Entresto #BPH - Stable, not currently in retention, continue finasteride, gemtesa, and tamsulosin #Hypothyroidism - continue levothyroxine, TSH WNL VTE ppx: SCDs, low risk Dispo: anticipate placement at inpatient geriatric psych facility Admission and Anticipated Discharge Date Admission Date: September 07, 2024 Subjective Patient seen and evaluated with friend at bedside. He reports feeling well, slept well overnight, and has a good appetite. He has been independent in the room, and asked if he could ambulate the halls with his friend; will defer to psych if they feel he is an elopement risk but medically speaking, he can ambulate the halls. We discussed that his WADE has resolved. 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 He denies any complaints or concerns at this time. Physical Exam Physical Exam: General: No acute distress, nondiaphoretic, well-developed, well-nourished. Cardiac: Well-perfused. Rates in 80s. Pulm: Normal respiratory effort. 98% on room air. Neuro: A&O x3. No focal neurological deficits. Psych: Normal affect. Pleasant and cooperative. Good hygiene. Results & Data Results & Data Vital Signs (Past 12 Hours) Vital Signs Temp Pulse Resp BP Pulse Ox O2 Del Method 09/08/24 15:28 98.8 F 82 18 129/74 98 Room Air 09/08/24 07:21 97.9 F 70 18 163/93 H 97 Room Air Laboratory Results Reviewed BMP PG Care Time/CCT Total # of Minutes Spent Total Time Spent with Patient: Total time spent is greater than 50% in coordination of care (as documented) at patient's floor/unit and/or counseling patient: Coding Level of Care Code 24528 SUB INP/OBS CARE 06/24MIN Diagnoses Anxiety F41.9 Hallucinations R44.3 Suicidal ideation R45.851 Chronic pain G89.29 Renal insufficiency N28.9
[2024-09-08] MEDS: LORazepam 0.5 MG TAB PO PRN (17:26)
[2024-09-08] MEDS: FINASTERIDE 1 MG EXT SCH (20:55)
[2024-09-09 07:17] LABS: BUN Creatinine Ratio 16.7 (10-20); Calcium 8.9 mg/dl (8.6-10.3); Creatinine Clr Calc Pharmacy 53.2 ml/min; Potassium 3.6 mmol/L (3.5-5.1)
--- NOTE | 2024-09-09 12:52 | Psychiatric Progress Note ---
Date of Service September 09, 2024 Impression / Recommendations Impression Patient is a 74-year-old male with past medical history of bipolar disorder, schizoaffective disorder, anxiety, BPH, hypertension, hypothyroidism, clear-cell carcinoma of left kidney, stage III CKD. He presented to the ED due to worsening hallucinations, tremors, and cognitive decline. Psychiatry consulted for evaluation and recommendations. Diagnostically unclear, possible some of his symptoms are exacerbated by anxiety and depression though also with long history of schizoaffective disorder with many hospitalizations when he was younger until stabilizing on clozapine. Had been doing well until a few weeks ago when depression worsened with subsequent increased confusion, psychosis and difficulty functioning. He is now medically stable and given ongoing SI and new medication changes recommend bed search for inpatient geriatric psychiatry given medical comorbidities, ambulation and ADL assistance, medication management needs, and age. Overall, I spent a total of 50 minutes with this case including review of chart records, review of labwork, review of EKG QTc, direct evaluation of the patient at bedside, counseling the patient, discussion of the patient with the Nurse and with the hospitalist provider, discussion with the psychiatric liason during clinical rounds and documentation in the electronic health record. (1) Schizoaffective disorder: (2) Depression with suicidal ideation: (3) Tardive dyskinesia: (4) Depression: (5) Pseudohallucination: (6) Generalized anxiety disorder: (7) Cluster B personality disorder: (8) Sundowning: (9) Tremor: (10) Acute dehydration: (11) Chronic pain: (12) Renal insufficiency: (13) History of liver injury: Plan 09/09/2024: -Continue current medications -Start inpatient geriatric psychiatry bed search -Continue to feel that he doesn't require 1-on-1 as he feels safe in the hospital and feels able to alert his nurse if SI intensified or if he felt unable to remain safe or needed more support; agree with 1-on-1 prn as ordered -Recommend ongoing suicide precautions of q15 minute checks and safe tray as ordered 09/07/2024: Reduce Escitalopram to 10mg daily Start Sertraline 50mg daily Continue home Clozaril 50mg HS Continue Lurasidone 80mg Consider Lorazepam 0.5mg PO Q8hr PRN for anxiety If it worsens patient's cognition, consider Hydroxyzine 12.5 to 25mg PO Q8hr PRN for anxiety PT/OT Once medically cleared, inpatient geriatric psychiatry admission Protective Factors Assessment Employed: No Interval History Identifying Information Patient is a 74-year-old male with past medical history of bipolar disorder, schizoaffective disorder, anxiety, BPH, hypertension, hypothyroidism, clear-cell carcinoma of left kidney, stage III CKD. He presented to the ED due to worsening hallucinations, tremors, and cognitive decline. Psychiatry consulted for evaluation and recommendations. Chief Complaint "A little better today". Subjective Subjective Patient was seen & assessed and interval progress reviewed. Cross-taper from escitalopram to sertraline was started. Had very big appetite, ate a lot of crackers overnight and drank a lot this morning. Today he reports his mood is "a little bit better" due to feeling "more focused". But he still has intensified SI beyond his baseline chronic intermittent SI. His voices today are described as "mild". Sleep was "spotty" overnight. He denies any side effects from dose adjustment of escitalopram and initiation of sertraline so far. He remains interested in inpatient psychiatric treatment to help with his worsened depression, SI and psychosis. Reviewed that he has outpatient psychiatry, therapy with [facility] and case management through [facility]. Physical Exam Psychiatric Orientation: alert and oriented x 3 Apperance: appropriately dressed and appropriately groomed Eye Contact: good eye contact Motor Behavior: + EPS (prominent tongue TD) Speech: normal rate/rhythm/volume of speech Affect: + constricted affect Mood: + depressed mood and + anxious mood Thought Process: goal directed thought process Thought Content: reality based without delusions Suicidal Thoughts: denies suicidal plan (none for hospital, feels safe here); + reports suicidal thoughts Homicidal Thoughts: denies homicidal thoughts Hallucinations: + auditory hallucinations Insight: + limited insight Judgment: + fair judgement Vital Signs (Past 24 Hours) Last Vital Signs Temp 36.3 C L 09/09/24 07:57 Pulse 69 09/09/24 07:57 Resp 18 09/09/24 07:57 BP 151/91 H 09/09/24 07:57 Pulse Ox 100 09/09/24 07:57 O2 Del Method Room Air 09/09/24 07:57 Results & Data ([facility]) Laboratory Results Laboratory Results - last 24 hr 09/09/24 06:11 Sodium 142 Potassium 3.6 Chloride 111 H Carbon Dioxide 27 Anion Gap 4 BUN 19 Creatinine 1.14 Est Cr Clr Drug Dosing 53.2 eGFR 67.49 BUN/Creatinine Ratio 16.7 Glucose 118 H Calcium 8.9 Current Inpatient Medications Current Inpatient Medications: Current Inpatient Medications Acetaminophen (Acetaminophen 325 Mg Tab) 650 mg PO Q4H PRN PRN Reason: Pain or Fever Stop: 10/07/24 07:54 Last Admin: 09/07/24 20:30 Dose: 650 mg Clozapine (Clozapine 25 Mg Tab) 50 mg PO HS PAUL; Protocol Stop: 10/07/24 20:59 Last Admin: 09/08/24 20:55 Dose: 50 mg Diclofenac Sodium (Diclofenac Sod 1% Gel 100 Gm Tube) 2 gm EXT QID PRN; Protocol PRN Reason: pain Stop: 10/07/24 07:54 Last Admin: 09/09/24 08:47 Dose: 2 gm Diltiazem HCl (Diltiazem Hcl 180 Mg Capcr) 360 mg PO HS PAUL Stop: 10/07/24 20:59 Last Admin: 09/08/24 20:55 Dose: 360 mg Docusate Sodium (Docusate Sodium 100 Mg Cap) 100 mg PO BID PRN PRN Reason: Constipation Stop: 10/07/24 07:54 Escitalopram Oxalate (Escitalopram Oxalate 10 Mg Tab) 10 mg PO HS [facility] Stop: 10/07/24 20:59 Last Admin: 09/08/24 20:55 Dose: 10 mg Levothyroxine Sodium (Levothyroxine Sodium 75 Mcg Tablet) 75 mcg PO DAILYBB PAUL Stop: 10/07/24 08:59 Last Admin: 09/09/24 06:21 Dose: 75 mcg Lorazepam (Lorazepam 0.5 Mg Tab) 0.5 mg PO Q8H PRN PRN Reason: Anxiety Stop: 10/07/24 07:54 Last Admin: 09/09/24 07:04 Dose: 0.5 mg Lurasidone HCl (Lurasidone Hcl 20 Mg Tab) 80 mg PO QPM PAUL Stop: 10/07/24 20:59 Last Admin: 09/08/24 20:55 Dose: 80 mg Melatonin (Melatonin 3 Mg Tab) 3 mg PO HS PRN PRN Reason: Sleep Stop: 10/07/24 07:54 Metoprolol Succinate (Metoprolol Succ 25mg Ext Rel Tab) 25 mg PO DAILY PAUL Stop: 10/07/24 08:59 Last Admin: 09/09/24 08:47 Dose: 25 mg Non-Formulary Patient's Own Med - Finasteride 1 Mg Tablet 1 each EXT HS PAUL Stop: 10/08/24 20:59 Last Admin: 09/08/24 20:55 Dose: 1 tab Psyllium Hydrophilic Mucilloid (Psyllium Or Guar Gum Fiber 4gm Packet) 4 gm PO QAM PAUL Stop: 10/07/24 09:59 Last Admin: 09/09/24 07:04 Dose: 4 gm Sacubitril/Valsartan (Valsartan/Sacubitril 26/24mg Tab) 1 tab PO BID PAUL Stop: 10/07/24 08:59 Last Admin: 09/09/24 08:47 Dose: 1 tab Sertraline HCl (Sertraline Hcl 50 Mg Tablet) 50 mg PO QAM [facility] Stop: 10/08/24 08:59 Last Admin: 09/09/24 08:47 Dose: 50 mg Tamsulosin HCl (Tamsulosin Hcl 0.4 Mg Cap) 0.4 mg PO QAM [facility] Stop: 10/07/24 08:59 Last Admin: 09/09/24 08:47 Dose: 0.4 mg Vibegron (Vibegron 75 Mg Tab) 75 mg PO DAILY [facility] Stop: 10/07/24 08:59 Last Admin: 09/09/24 08:47 Dose: 75 mg Mental Health & Subst Abuse Tx Therapist Name of Therapist: Miles Bulk Delivery Driver Name of Bulk Delivery Driver: Nory [email or web address] [facility] Discharge Appointments Primary Care Physician Name Of Family Doctor/PCP: Dr Terry
--- NOTE | 2024-09-09 18:47 | Hospitalist Progress Note ---
Date of Service September 09, 2024 Assessment & Plan (1) Anxiety: (2) Hallucinations: (3) Suicidal ideation: (4) Chronic pain: (5) Renal insufficiency: Plan 74-year-old male with past medical history of bipolar disorder, schizoaffective disorder, anxiety, BPH, hypertension, hypothyroidism, clear-cell carcinoma of left kidney, stage III CKD. He presented to the ED due to worsening hallucinations, tremors, and cognitive decline. He was admitted for psych evaluation and medication adjustments. 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 Reports medication compliance. Head CT and CXR negative for acute changes. TSH WNL, electrolytes stable. UDS negative, salicylates WNL, acetaminophen level WNL, EtOH WNL Psych consulted - recommends cross-taper from escitalopram to sertraline. Use lorazepam 0.5 mg q8h PRN anxiety and should also reduce psychosis. If lorazepam worsens patient's cognition, consider hydroxyzine 12.5-25 mg q8h PRN anxiety Reduced/continued on escitalopram 10 mg daily and started/continued on sertraline 50 mg daily. Continue Clozaril 50 mg HS, lurasidone 80 mg HS Repeat EKG with QTc of 443 and RBBB. EKG on admission showed QTc of 666 but had significant artifact Recommend psych follow-up outpatient for long history of tardive dyskinesia Per psych, anticipate placement at inpatient geriatric psych facility given ongoing SI and new medication changes recommend bed search for inpatient geriatric psychiatry given medical comorbidities, ambulation and ADL assistance, medication management needs, and age #Chronic pain - history of osteoarthritis. Patient reports pain in shoulder, knees, back. Patient stated he was titrated off pain medication Continue Tylenol PRN and Voltaren gel PRN #Renal insufficiency on CKD - hx of clear-cell renal carcinoma, s/p left kidney nephrectomy 2 to 3 years ago Baseline Cr ~1.0, Cr on admission 1.41 - now back to baseline renal function Hold PRN Lasix Encourage oral hydration #UTI - Completed course of cefdinir 300 mg BID 09/07. UA on admission showed trace ketones - no WBC, leukocyte esterase, nitrates, or bacteria present #HTN - Stable, continue home regimen of diltiazem, metoprolol, Entresto #BPH - Stable, not currently in retention, continue finasteride, gemtesa, and tamsulosin #Hypothyroidism - continue levothyroxine, TSH WNL VTE ppx: SCDs, low risk Dispo: Medically stable without any ongoing acute medical needs. Anticipate placement at inpatient geriatric psych facility. Per psych physician, patient is to remain on medical floor until placement obtained - no plan to transfer to [facility] Discussed case with psychiatry attending and health outcomes liaison Admission and Anticipated Discharge Date Admission Date: September 07, 2024 Subjective Patient seen and evaluated at bedside. He was calmly reading his book in bed. He remains pleasant and cooperative with his care. He reports he "slept like an rhinoceros" overnight (however, per review of psych note today he reported to them that he had "spotty" sleep overnight). RN reports he has been very hungry and thirsty today. He expresses continued interest in being transferred to inpatient psych. He continues to have increased suicidal ideation, but he denies suicidal intent and reports he wants to continue living. His SI seems to be from intrusive thoughts than true desire. Discussed with psych liaison who does not feel he requires 1:1 sitter given he has no suicidal intent. He denies any pain. He asked for warm blankets, which I provided for him. No additional complaints or concerns at this time. Review of Systems Psychiatric: + change in appetite (increased appetite /thirst), + suicidal ideation, + anxiety and + auditory hallucinations Physical Exam Physical Exam: General: No acute distress, nondiaphoretic, well-developed, well-nourished. Cardiac: Well-perfused. Rates in 60s. Pulm: Normal respiratory effort. 98% on room air. Neuro: A&O x3. No focal neurological deficits. Psych: Normal affect. Pleasant and cooperative. Good hygiene. Results & Data Results & Data Vital Signs (Past 12 Hours) Vital Signs Temp Pulse Resp BP Pulse Ox O2 Del Method 09/09/24 15:26 98.1 F 64 16 138/81 96 Room Air 09/09/24 07:57 97.3 F L 69 18 151/91 H 100 Room Air Laboratory Results Reviewed BMP PG Care Time/CCT Total # of Minutes Spent Total Time Spent with Patient: Total time spent is greater than 50% in coordination of care (as documented) at patient's floor/unit and/or counseling patient: Coding Level of Care Code 40826 SUB INP/OBS CARE MIN Diagnoses Anxiety F41.9 Hallucinations R44.3 Suicidal ideation R45.851 Chronic pain G89.29 Renal insufficiency N28.9
[2024-09-09] MEDS: MELATONIN 3 MG TAB PO PRN (21:54)
[2024-09-09] MEDS: DOCUSATE SODIUM 100 MG CAP PO PRN (21:54)
--- NOTE | 2024-09-10 08:28 | Hospitalist Progress Note ---
Date of Service September 10, 2024 Assessment & Plan (1) Anxiety: (2) Hallucinations: (3) Suicidal ideation: (4) Chronic pain: (5) Renal insufficiency: Plan 74-year-old male with past medical history of bipolar disorder, schizoaffective disorder, anxiety, BPH, hypertension, hypothyroidism, clear-cell carcinoma of left kidney, stage III CKD. He presented to the ED due to worsening hallucinations, tremors, and cognitive decline. He was admitted for psych evaluation and medication adjustments. On admission, head CT and CXR negative for acute changes, TSH WNL, electrolytes stable, UDS negative, salicylates WNL, acetaminophen level WNL, EtOH WNL. EKG on admission showed QTc of 666 but had significant artifact, repeat EKG with QTc of 443 and RBBB. 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 Reports medication compliance. Psych consulted - recommends cross-taper from escitalopram to sertraline. Use lorazepam 0.5 mg q8h PRN anxiety and should also reduce psychosis. If lorazepam worsens patient's cognition, consider hydroxyzine 12.5-25 mg q8h PRN anxiety Reduced/continued on escitalopram 10 mg daily and started/continued on sertraline 50 mg daily Continue Clozaril 50 mg HS, lurasidone 80 mg HS Anticipate placement at inpatient geriatric psych facility given ongoing SI and new medication changes, medical comorbidities, ambulation and ADL assistance, medication management needs, and age. COVID swab ordered for placement purposes #Chronic pain - history of osteoarthritis. Patient reports pain in shoulder, knees, back. Patient stated he was titrated off pain medication Continue Tylenol PRN and Voltaren gel PRN - well-controlling his pain #Renal insufficiency on CKD - hx of clear-cell renal carcinoma, s/p left kidney nephrectomy 2 to 3 years ago Baseline Cr ~1.0, Cr on admission 1.41 - now back to baseline renal function Hold PRN Lasix Encourage oral hydration #UTI - Completed course of cefdinir 300 mg BID 09/07. UA on admission showed trace ketones - no WBC, leukocyte esterase, nitrates, or bacteria present #HTN - Stable, continue home regimen of diltiazem, metoprolol, Entresto #BPH - Stable, not currently in retention, continue finasteride, gemtesa, and tamsulosin #Hypothyroidism - continue levothyroxine, TSH WNL VTE ppx: SCDs, low risk Dispo: Medically stable without any ongoing acute medical needs. Anticipate placement at inpatient geriatric psych facility. Per psych physician, patient is to remain on medical floor until placement obtained - no plan to transfer to [facility]. Recommend psych follow-up outpatient for long history of tardive dyskinesia. Discussed placement with psych liaison Ordered COVID test Admission and Anticipated Discharge Date Admission Date: September 07, 2024 Subjective Patient seen and evaluated at bedside. He reports "I only feel so-so today." He reports feeling anxious and asked for a dose of Ativan; RN to provide now. He reports his auditory hallucinations are more apparent today than yesterday. The excessive hunger and thirst he experienced yesterday has resolved today per RN. No additional complaints or concerns at this time. Physical Exam Physical Exam: General: No acute distress, nondiaphoretic, well-developed, well-nourished. Frequent lip smacking secondary to tardive dyskinesia. Cardiac: Well-perfused. Rates in 60s. Pulm: Normal respiratory effort. 98% on room air. Neuro: A&O x3. No focal neurological deficits. Psych: Normal affect. Pleasant and cooperative. Good hygiene. Results & Data Results & Data Vital Signs (Past 12 Hours) Vital Signs Temp Pulse Resp BP Pulse Ox O2 Del Method 09/10/24 07:26 98.1 F 56 L 18 164/92 H 97 Room Air 09/09/24 21:50 98.3 F 66 16 152/86 H 98 Room Air Laboratory Results COVID swab pending PG Care Time/CCT Total # of Minutes Spent Total Time Spent with Patient: Total time spent is greater than 50% in coordination of care (as documented) at patient's floor/unit and/or counseling patient: Coding Level of Care Code 54782 SUB INP/OBS CARE 2/35MIN Diagnoses Anxiety F41.9 Hallucinations R44.3 Suicidal ideation R45.851 Chronic pain G89.29 Renal insufficiency N28.9
[2024-09-11 07:55] VITALS: PULSE 77; RESP 18; TEMP 98.2; O2SAT 99
--- NOTE | 2024-09-11 10:41 | Discharge Summary ---
Discharge Summary Date of Service September 11, 2024 Principal Dx & Hospital Course #1 = Principal Diagnosis (1) Anxiety: (2) Hallucinations: (3) Suicidal ideation: (4) Chronic pain: (5) Renal insufficiency: Plan 74-year-old male with past medical history of bipolar disorder, schizoaffective disorder, anxiety, BPH, hypertension, hypothyroidism, clear-cell carcinoma of left kidney, stage III CKD. He presented to the ED due to worsening hallucinations, tremors, and cognitive decline. He was admitted for psych evaluation and medication adjustments. On admission, head CT and CXR negative for acute changes, TSH WNL, electrolytes stable, UDS negative, salicylates WNL, acetaminophen level WNL, EtOH WNL. EKG on admission showed QTc of 666 but had significant artifact, repeat EKG with QTc of 443 and RBBB. #Anxiety/hallucinations/SI - patient reports worsening delusions, hallucinations, anxiety, panic attacks, and suicidal ideation for several days [employer]. 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 Reports medication compliance. Psych consulted - recommends cross-taper from escitalopram to sertraline. Use lorazepam 0.5 mg q8h PRN anxiety and should also reduce psychosis. If lorazepam worsens patient's cognition, consider hydroxyzine 12.5-25 mg q8h PRN anxiety Reduced/continued on escitalopram 10 mg daily and started/continued on sertraline 50 mg daily Continue Clozaril 50 mg HS, lurasidone 80 mg HS Continue care at [facility] for inpatient geriatric psychiatry services #Chronic pain - history of osteoarthritis. Patient reports pain in shoulder, knees, back. Patient stated he was titrated off pain medication Continue Tylenol PRN and Voltaren gel PRN - well-controlling his pain #Renal insufficiency on CKD - hx of clear-cell renal carcinoma, s/p left kidney nephrectomy 2 to 3 years ago Baseline Cr ~1.0, Cr on admission 1.41 - now back to baseline renal function Continue PRN Lasix on discharge Encourage oral hydration #UTI - Completed course of cefdinir 300 mg BID 09/07. UA on admission showed trace ketones - no WBC, leukocyte esterase, nitrates, or bacteria present #HTN - Stable, continue home regimen of diltiazem, metoprolol, Entresto #BPH - Stable, not currently in retention, continue finasteride, gemtesa, and tamsulosin #Hypothyroidism - continue levothyroxine, TSH WNL VTE ppx: SCDs, low risk Dispo: Discharged to [facility] for inpatient geriatric psychiatry services Notes For Next Care Provider Continue medication adjustments as needed Medication Changes From Visit Reduced escitalopram to 10 mg daily Started sertraline 50 mg daily Lorazepam 0.5 mg q8h PRN anxiety Admission HPI Per Admitting Provider Patient is a 74-year-old male with past medical history of bipolar disorder, schizoaffective disorder, anxiety, BPH, hypertension, hypothyroidism, clear-cell carcinoma of left kidney, stage III CKD. He presented to the ED due to worsening hallucinations, tremors, and cognitive decline. Patient is being admitted for pain control, anxiety control, and to have neuro and psych eval's. Patient was pleasant and seen at bedside. He stated that for the past few days he has had worsening delusions, anxiety, panic attacks, and hallucinations. He does endorse suicidal ideation and thoughts of self-harm. He stated he has been stable on his current medication regimen for several years. He does have tremors at bedside however he stated this has been chronic for several years and is unchanged. Patient also stated he has chronic pain and history of osteoarthritis, he has pain in his shoulders, knees, and along the L5 pathway. He was previously on pain medication however was titrated off of this with his PCP. He states his pain is currently a 6/10, Tylenol ordered. Patient does state that he has a history of left kidney nephrectomy due to clear-cell carcinoma, discussed worsening creatinine, will promote oral hydration and patient drinking water without difficulty at bedside. Patient denies current dizziness/lightheadedness, shortness of breath, chest pain, nausea, vomiting, diarrhea, dysuria. Patient is currently undergoing treatment for UTI with cefdinir from 08/28 and has approximately 2 pills left. He missed his evening medications last night however will defer ordering at this time given patient will have a.m. medications soon. He denies nicotine and alcohol use. Did not discuss CODE STATUS given suicidal ideation. Patient is agreeable to psych and neuro evals for possible medication adjustments and ultimate goal is to go to psychiatric facility given suicidal ideation and eventually to return home. Discharge Exam General: No acute distress, nondiaphoretic, well-developed, well-nourished. Frequent lip smacking secondary to tardive dyskinesia. Cardiac: Well-perfused. Rates in 60s. Pulm: Normal respiratory effort. 98% on room air. Neuro: A&O x3. No focal neurological deficits. Psych: Normal affect. Pleasant and cooperative. Good hygiene. Discharge Plan Discharge Items Patient Disposition: Transfer Behavioral Health Fac Reason For Visit: ANXIETY,HALLUCINATIONS,CHRONIC PAIN,RENAL INSUFFIC Discharge Diagnosis: SI, hallucinations, tardive dyskinesia, schizoaffective disorder, depression, anxiety Activity: Resume your previous activity Non-emergency contact: Primary Care Provider and Psychiatrist Call non-emergency contact if: you have any medication questions, your symptoms worsen and your pain is not controlled Follow-up/Referrals: Sung Gilbert MD [Primary Care Provider] - (Follow-up in 1-2 weeks) Diet: Regular Addtl Attending Provider Instructions: Mr. Dobson, You were admitted to the hospital due to worsening hallucinations with suicidal ideations. The CT scan of your head and chest x-ray were unremarkable, electrolytes were normal, and TSH was normal. You were evaluated by the psychiatrist who made some medication adjustments. Additionally, you completed your antibiotic course for UTI and your kidney function has returned to your baseline. You are being discharged to [facility] for inpatient geriatric psychiatry services. Upon discharge from the hospital: * Continue the cross-taper from escitalopram to sertraline. Your escitalopram dose was reduced to 10 mg daily. You were started on sertraline 50 mg daily. * Continue Clozaril 50 mg at bedtime, lurasidone 80 mg at bedtime. * Continue Tylenol as needed for pain/fever. Continue topical Voltaren gel as needed for chronic osteoarthritis pain. * Continue your other home medications as prescribed. It was a pleasure taking care of you while you were in the hospital! Pending Studies at Discharge: No Stand-Alone Forms: My [facility] Skilled Items Lines: None Urinary Catheter: No Medications and DC Order Prescriptions: New acetaminophen 325 mg Tablet 650 mg PO Q4H PRN (Reason: fever or pain) Qty: 60 0RF diclofenac sodium [Voltaren Arthritis Pain] 1 % Gel 2 g EXT QID PRN (Reason: pain) Qty: 100 0RF lorazepam 0.5 mg Tablet 0.5 mg PO Q8H PRN (Reason: anxiety) Qty: 60 0RF escitalopram oxalate 10 mg Tablet 10 mg PO HS Qty: 30 0RF sertraline 50 mg Tablet 50 mg PO QAM Qty: 30 0RF Continued cholecalciferol (vitamin D3) 25 mcg (1,000 unit) capsule 500 unit PO DAILY Entresto 24-26 mg tablet 1 tab PO BID Latuda 120 mg tablet 80 mg PO QPM Rx Instructions: must administer with food (at least 350 calories) clozapine 50 mg tablet 50 mg PO HS multivitamin Tablet 1 tab PO QAM levothyroxine 75 mcg tablet 75 mcg PO QAM vitamin B complex Tablet 1 tab PO QAM polyethylene glycol 3350 [Miralax] 17 gram/dose powder 17 g PO BID PRN (Reason: Constipation ) diltiazem HCl 360 mg tablet extended release 24 hr 360 mg PO HS finasteride 1 mg tablet 1 mg PO DAILY Gemtesa 75 mg tablet 75 mg PO DAILY tamsulosin 0.4 mg capsule 0.4 mg PO QAM furosemide 20 mg Tablet 20 mg PO DAILY PRN (Reason: Fluid Retention) metoprolol succinate 25 mg Tablet Extended Release 24 Hr 25 mg PO DAILY gelatin 600 mg Capsule 1,200 mg PO DAILY Discontinued escitalopram oxalate [Lexapro] 20 mg tablet 20 mg PO HS cefdinir 300 mg capsule 300 mg PO BID 10 Days Qty: 20 0RF lorazepam 0.5 mg tablet 0.5 mg PO BID PRN (Reason: Anxiety ) Discharge Orders: Discharge Order (Routine); Ordered 09/11/24 Ordered By: Ana Cartagena Admission Data Admit Date/Time: 09/07/24 03:25 Attending Provider: Morgan Anne Admit Provider: Raeann Cano Primary Care Provider: Sung Gilbert Other Providers: Jaz Eduardo; Arnaldo Soliman; Manasa Witt; Erika Gardiner; Chan Garcia; Doug Worrell Other Interventions: Discharge Summary Assessment (RN) Last Done: 09/11/24 11:16 Hospital Stay Data Consultations 09/07/24 07:55 Consult Psychiatry Routine Diagnostic Imagining Performed 09/06/24 22:07 CT head/brain wo con Stat Pending Results Patient Have Any Pending Studies at Discharge: No Discharge Instructions Given to Patient (Per Discharging Provider) Mr. Dobson, Pardeep were admitted to the hospital due to worsening hallucinations with suicidal ideations. The CT scan of your head and chest x-ray were unremarkable, electrolytes were normal, and TSH was normal. You were evaluated by the psychiatrist who made some medication adjustments. Additionally, you completed your antibiotic course for UTI and your kidney function has returned to your baseline. You are being discharged to [facility] for inpatient geriatric psychiatry services. Upon discharge from the hospital: * Continue the cross-taper from escitalopram to sertraline. Your escitalopram dose was reduced to 10 mg daily. You were started on sertraline 50 mg daily. * Continue Clozaril 50 mg at bedtime, lurasidone 80 mg at bedtime. * Continue Tylenol as needed for pain/fever. Continue topical Voltaren gel as needed for chronic osteoarthritis pain. * Continue your other home medications as prescribed. It was a pleasure taking care of you while you were in the hospital! Total Time Total Time Spent Total Time Spent (In Minutes): Greater than 30 minutes spent completing this discharge process including direct patient care, medication reconciliation, documentation, review of labs and images, and coordination of care. Coding Level of Care Code 98829 INP/OBS DISCH >30 MIN Diagnoses Anxiety F41.9 Hallucinations R44.3 Suicidal ideation R45.851 Chronic pain G89.29 Renal insufficiency N28.9
[2024-09-11 11:17] VITALS: BP 138/81
== END 2024-09-11 13:00 | DRG 880 ==
LOC: ED 19:39 → SUATTDRO 09-07 03:25 → 2W 09-07 03:25